=== PATIENT | female | born 1960 | race Caucasian/White ===

== ENCOUNTER → 2017-11-23 10:28 | Outpatient (CLI) | payer OTHER, SELFPAY ==
--- NOTE | 2017-11-23 10:30 | HPBI_ITS ---
MAMMOGRAPHY - BILATERAL SCREENING REASON FOR EXAM: Female, 57 years old. Routine annual screening examination. PERTINENT HISTORY: Personal history of breast cancer. Prior left lumpectomy with radiation and chemotherapy. TECHNIQUE: Digital bilateral breast winifred (3D mammographic acquisition) in the CC and MLO projections. 2-D mediolateral oblique (MLO) and craniocaudad (CC) views of both breasts were obtained. CAD: Full Field Digital Mammography with Computer Added Detection was performed. COMPARISON: Comparison is made with prior study dated November 19, 2016 and November 19, 2015. FINDINGS: Breast Composition: The breasts are heterogeneously dense, which may obscure small masses. Stable deformity of the left breast secondary to prior lumpectomy. A tissue clip marker is once again seen and in the deep upper lateral portion of the left breast. Linear calcifications are once again seen in the axillary region of the left breast. No new mass lesion or cluster microcalcification is seen. No other significant abnormalities are identified. There has been no significant change since the prior study. HPBI/SCREENING MAMM (CAD), BILAT IMPRESSION: Stable bilateral screening mammogram. Yearly follow-up mammogram recommended. (A) ASSESSMENT CATEGORY: BIRADS Category 2: Benign. A letter regarding these results will be sent to the patient by the facility within 30 days. Approximately 10% of breast cancers are not detected by mammography. A normal mammogram should not delay biopsy of a clinically suspicious abnormality. [id number] Electronically Signed: Shoaib Kuhn MD at 12:41 EDT Tel [phone], Service support ,
--- NOTE | 2017-11-23 10:32 | HPBD_ITS ---
STUDY: DUAL ENERGY X-RAY ABSORPTIOMETRY / DXA REASON FOR EXAM: Female, 57 years old. The patient is postmenopausal. History of breast cancer. Loss of height. TECHNIQUE: Bone Mineral Density (BMD) measurements of lumbar spine and bilateral hips were obtained. COMPARISON: Comparison is made with prior study dated November 19, 2015. FINDINGS: Lumbar Spine (L1-L4): g/cm2 (0.924) / T-score (-2.3) / Z-score (-1.2) Findings are suggestive of osteopenia with a moderate fracture risk. Left Femur Total: g/cm2 (0.870) / T-score (-1.1) / Z-score (-0.2) Left Femoral Neck: g/cm2 (0.804) / T-score (-1.7) / Z-score (-0.5) Right Femur Total: g/cm2 (0.896) / T-score (-0.9) / Z-score (0.0) Right Femoral Neck: g/cm2 (0.824) / T-score (-1.5) / Z-score (-0.4) The T-Scores on the most recent prior examination were: Lumbar Spine (L1-L4): There has been worsening of bone density since the previous examination. Left Femur Total: which represents a worsening of 4.3%. Right Femur Total: which represents an improvement of 0.2%. HPBD/Dexa Bone Density Study (HP) IMPRESSION: The patient is considered osteopenic as outlined below according to World Eloy Organization (WHO) criteria with a moderate fracture risk. There has been worsening of bone density since the previous examination. Reference Information: The T-score is the number of standard deviations above or below the standard which is normal for young adults at their peak bone mineral density. The World Health Organization (WHO) interprets the T-scores as follows: Above -1 Normal bone density Between -1 and -2.5 Osteopenia Equal to / or below -2.5 Osteoporosis As a practical clinical guideline, osteopenia may be graded as follows: Mild -1 through -1.5 Moderate -1.6 through -2.0 Severe -2.1 through -2.4 The Z-score is the number of standard deviations above or below age-matched controls. A Z-score of less than -1.5 would be considered abnormal. References: 1. NIH Osteoporosis and Related Bone Diseases http://www.osteo.org 2. International Society for Clinical Densitometry http://www.iscd.org 3. National Osteoporosis Foundation http://www.nof.org Electronically Signed: Shoaib Kuhn MD at 12:51 EDT Tel [phone], Service support ,
== END ==
PROVIDERS: Visit Provider Nurse Practitioner Family
DX: Z12.31 Encounter for screening mammogram for malignant neoplasm of breast (principal); Z13.820 Encounter for screening for osteoporosis; Z78.0 Asymptomatic menopausal state
CPT/HCPCS: 77063; 77067; 77080

== ENCOUNTER → 2017-12-24 16:26 | Outpatient (CLI) | payer OTHER, SELFPAY ==
--- NOTE | 2017-12-24 | COLBX_PTH ---
PATIENT: [facility]A [id number] AGE/SX: 65/F ROOM: RE12/24/[address]: Dr. Kirk Jaimes MD : 1960 BED: DIS: SPEC #: [id number] RECD: 12/24/17 15:23 STATUS: RADHA BECKIE #: [id number] HERNAN: 12/24/17 00:[address]: Kirk Jaimes DEPT: SURGICAL PATHOLOGY RECD BY: Mj Hudson ENTERED: 12/27/17 10:54 SP TYPE: COLON BX OTHR DR: Dr. Rodri Riddle MD [facility] Tissues: A - Ascending colon B - COLON BIOPSY C - Ileum, NOS Procedures: Surgery Specimen Level IV HEADER OPERATION: Colonoscopy with biopsies and polypectomy PRE-OP DIAGNOSIS: Diarrhea TISSUE SUBMITTED: A ? Proximal ascending polyps, rule out adenoma, B ? Right and left colon biopsies, rule out microscopic colitis, C ? Terminal ileum biopsies, rule out Crohn?s MICROSCOPIC DIAGNOSIS A. Proximal ascending colon polyp, biopsy: Tubular adenoma. B. Right and left colon, biopsy: No significant pathologic change. See comment. C. Terminal ileum, biopsy: No pathologic diagnosis. AM:wagner 12/28/17 COMMENT B. Eosinophils are mildly increased in the lamina propria. The significance of this is unclear. Clinical correlation is suggested. C. There is no evidence of Crohn?s enteritis. Clinical correlation is suggested. MICROSCOPIC DESCRIPTION Slides are reviewed. GROSS DESCRIPTION A - Received in fixative is one container labeled with the patient's name and designated proximal ascending colon polyps. The specimen consists of one irregular fragment of light orellana soft tissue that measures 0.4 x 0.3 x 0.1 cm. The specimen is totally submitted in one cassette. B - Received in fixative is one container labeled with the patient's name and designated right and left colon. The specimen consists of multiple irregular fragments of light orellana soft tissue that in aggregate measure 1 x 0.6 x 0.1 cm. The specimen is totally submitted in one cassette. C - Received in fixative is one container labeled with the patient's name and designated terminal ileum. The specimen consists of two irregular fragments of light orellana soft tissue that in aggregate measure 0.5 x 0.2 x 0.1 cm. The specimen is totally submitted in one cassette. / AM:wagner 12/27/17 TC:5 CPT: 51748 x3
== END ==
PROVIDERS: Family Provider Family Medicine; PCP Family Medicine; Visit Provider Internal Medicine Gastroenterology
DX: R19.7 Diarrhea, unspecified (principal)
CPT/HCPCS: 88305

== ENCOUNTER → 2018-02-14 08:17 | Outpatient (CLI) | payer OTHER, SELFPAY ==
--- NOTE | 2018-02-14 08:17 | DT_ITS ---
This patient was seen during an EMR downtime February 07, 2018 - February 14, 2018. This patient may have a combination of paper and electronic documentation or all paper documentation. All documentation is viewable within the e-chart portion of [facility] for each patient visit.
[2018-02-14 10:43] LABS: AST(SGOT) 13 U/L (15-37); Alanine Aminotransfer ALT/SGPT 17 U/L (13-56); Albumin, Serum 3.6 g/dL (3.2-5.0); Alkaline Phosphatase 98 U/L (45-117); Bilirubin, Direct 0.12 mg/dL (0.00-0.30); Cholesterol 195 mg/dL (200); Globulin 3.8 g/dL (2.2-4.2); High Density Lipoprotein 43 mg/dL; Protein, Total 7.4 g/dL (6.4-8.2); Triglycerides 221 mg/dL; Very Low Density Lipoprotein 44 mg/dL (5-40)
== END ==
PROVIDERS: Family Provider Family Medicine; PCP Family Medicine; Visit Provider Family Medicine
DX: E78.00 Pure hypercholesterolemia, unspecified (principal)
CPT/HCPCS: 36415; 80061; 80076

== ENCOUNTER → 2018-06-30 15:57 | Outpatient (CLI) | payer OTHER, SELFPAY | PROVIDERS: PCP Family Medicine; Visit Provider Internal Medicine Medical Oncology | DX: R19.7 Diarrhea, unspecified (principal) | CPT/HCPCS: 87177; 87209 ==

== ENCOUNTER → 2018-07-05 13:07 | Outpatient (CLI) | payer OTHER, SELFPAY ==
--- NOTE | 2018-07-05 13:10 | CT_ITS ---
STUDY: CT ABDOMEN AND PELVIS WITH CONTRAST REASON FOR EXAM: Female, 58 years old. Nausea/vomiting/diarrhea RADIATION DOSAGE (If Supplied By Facility): CTDIvol = ( 12.00 ) mGy, DLP = ( 767.91 ) mGycm TECHNIQUE: Transaxial images were obtained from the dome of the diaphragm to the symphysis pubis without oral contrast. 100ML ml of Isovue 300 contrast was administered. Sagittal and coronal images were reconstructed. Individualized dose optimization techniques were used for this CT. COMPARISON: None. FINDINGS: The visualized lung bases are unremarkable. The visualized portions of the heart are within normal limits. Liver is unremarkable aside from a 2 cm cyst in the right lobe. Normal gallbladder and extrahepatic biliary system. Normal spleen. Normal pancreas. Normal bilateral adrenal glands. Normal right kidney. Normal left kidney. Normal visualized stomach. Normal small intestine. Normal colon. The appendix is visualized and appears normal. Appendix best seen on coronal recon image 73. Normal abdominal aorta. Normal inferior vena cava. Normal retroperitoneum. Normal urinary bladder. Normal abdominal wall. There are diffuse degenerative changes of the visualized lumbar spine. CT/Abdomen/Pelvis WITH Contrast IMPRESSION: No suspicious solid organ abnormality No CT evidence of an acute inflammatory process, normal appendix visualized No free peritoneal fluid, air, or suspicious adenopathy Electronically Signed: Virgilio Rodriguez MD at 15:18 EDT , Service support ,
== END ==
PROVIDERS: Family Provider Family Medicine; PCP Family Medicine; Referring Provider Internal Medicine Medical Oncology; Visit Provider Internal Medicine Medical Oncology
DX: R10.9 Unspecified abdominal pain (principal); R19.7 Diarrhea, unspecified
CPT/HCPCS: 74177; Q9967

== ENCOUNTER → 2018-11-24 07:00 | Outpatient (CLI) | payer OTHER, SELFPAY ==
--- NOTE | 2018-11-24 07:07 | BI_ITS ---
MAMMOGRAPHY - BILATERAL SCREENING 3-D ALISA SYNTHESIS REASON FOR EXAM: Female, 58 years old. Bilateral Screening 3-D tomosynthesis PERTINENT HISTORY: Personal history of left breast cancer status post lumpectomy, radiation and chemotherapy. TECHNIQUE: 2-D mammograms and 3-D Alisa synthesis of the breast (s) were performed. CAD was performed. COMPARISON: November 19, 2016, November 19, 2015 FINDINGS: The breast composition is almost entirely fat. Post radiation and chemotherapy changes in the left breast are stable with a surgical suture present. There is deformity of the left breast unchanged. Scattered benign calcifications are seen. No dense spiculated masses or suspicious microcalcifications are identified. No architectural distortion is identified. There is no skin thickening or retraction. There has been no significant change since the prior study. BI/SCREENING MAMM (CAD), BILAT IMPRESSION: No mammographic signs of malignancy. Routine yearly mammograms recommended. ASSESSMENT CATEGORY: BIRADS Category 2: Benign. A letter regarding these results will be sent to the patient by the facility within 30 days. FOLLOW UP RECOMMENDATION: Yearly follow up mammogram recommended. (A) Approximately 10% of breast cancers are not detected by mammography. A normal mammogram should not delay biopsy of a clinically suspicious abnormality. Electronically Signed: Won Vizcarra MD at 16:33 EDT , Service support ,
--- NOTE | 2018-11-24 07:07 | BI_ITS ---
MAMMOGRAPHY - BILATERAL SCREENING 3-D ALISA SYNTHESIS REASON FOR EXAM: Female, 58 years old. Bilateral Screening 3-D tomosynthesis PERTINENT HISTORY: Personal history of left breast cancer status post lumpectomy, radiation and chemotherapy. TECHNIQUE: 2-D mammograms and 3-D Alisa synthesis of the breast (s) were performed. CAD was performed. COMPARISON: November 19, 2016, November 19, 2015 FINDINGS: The breast composition is almost entirely fat. Post radiation and chemotherapy changes in the left breast are stable with a surgical suture present. There is deformity of the left breast unchanged. Scattered benign calcifications are seen. No dense spiculated masses or suspicious microcalcifications are identified. No architectural distortion is identified. There is no skin thickening or retraction. There has been no significant change since the prior study. BI/Bilat Brst Screen Alisa Add-On IMPRESSION: No mammographic signs of malignancy. Routine yearly mammograms recommended. ASSESSMENT CATEGORY: BIRADS Category 2: Benign. A letter regarding these results will be sent to the patient by the facility within 30 days. FOLLOW UP RECOMMENDATION: Yearly follow up mammogram recommended. (A) Approximately 10% of breast cancers are not detected by mammography. A normal mammogram should not delay biopsy of a clinically suspicious abnormality. Electronically Signed: Won Vizcarra MD at 16:33 EDT , Service support ,
== END ==
PROVIDERS: Family Provider Family Medicine; PCP Family Medicine; Referring Provider Nurse Practitioner Family; Visit Provider Nurse Practitioner Family
DX: Z12.31 Encounter for screening mammogram for malignant neoplasm of breast (principal); Z85.3 Personal history of malignant neoplasm of breast
CPT/HCPCS: 77063; 77067

== ENCOUNTER → 2019-01-24 08:29 | Outpatient (CLI) | payer OTHER, SELFPAY ==
[2018-07-11 15:18] VITALS: BMI 29.2
[2019-01-24 10:45] LABS: AST(SGOT) 20 U/L (15-37); Alanine Aminotransfer ALT/SGPT 24 U/L (13-56); Albumin, Serum 3.8 g/dL (3.2-5.0); Alkaline Phosphatase 106 U/L (45-117); Bilirubin, Direct 0.13 mg/dL (0.00-0.30); Cholesterol 195 mg/dL (200); Globulin 3.8 g/dL (2.2-4.2); High Density Lipoprotein 48 mg/dL; Protein, Total 7.6 g/dL (6.4-8.2); Triglycerides 167 mg/dL; Very Low Density Lipoprotein 33 mg/dL (5-40)
== END ==
PROVIDERS: Family Provider Family Medicine; PCP Family Medicine
DX: E78.00 Pure hypercholesterolemia, unspecified (principal)
CPT/HCPCS: 36415; 80061; 80076

== ENCOUNTER → 2019-10-06 10:02 | Outpatient (CLI) | payer OTHER, SELFPAY ==
[2019-07-11 13:03] VITALS: BMI 30.1
[2019-10-06 11:49] LABS: AST(SGOT) 14 U/L (15-37); Alanine Aminotransfer ALT/SGPT 25 U/L (13-56); Albumin, Serum 3.8 g/dL (3.2-5.0); Alkaline Phosphatase 106 U/L (45-117); Bilirubin, Direct 0.12 mg/dL (0.00-0.30); Cholesterol 212 mg/dL (200); Globulin 3.9 g/dL (2.2-4.2); High Density Lipoprotein 50 mg/dL; Protein, Total 7.7 g/dL (6.4-8.2); Triglycerides 208 mg/dL; Very Low Density Lipoprotein 42 mg/dL (5-40)
== END ==
PROVIDERS: PCP Family Medicine; Visit Provider Family Medicine
DX: E78.00 Pure hypercholesterolemia, unspecified (principal)
CPT/HCPCS: 36415; 80061; 80076

== ENCOUNTER → 2019-11-20 12:08 | Outpatient (CLI) | payer OTHER, SELFPAY ==
[2019-07-11 13:03] VITALS: BMI 30.1
--- NOTE | 2019-11-20 12:10 | CT_ITS ---
STUDY: CT SCAN OF LOWER EXTREMITY LEFT REASON FOR EXAM: Female, 59 years old. LEFT KNEE PAIN, ZAHRA RADIATION DOSAGE (If Supplied By Facility): CTDIvol = ( 31.72 ) mGy, DLP = ( 2286.66 ) mGycm. Individualized dose optimization techniques were used for this CT.? TECHNIQUE: Multiple axial tomographic images of the left hip joint, knee joint and ankle joint were obtained. COMPARISON: None. FINDINGS: There is a marked degree of joint space narrowing with degenerative spur formation involving the medial compartment of the knee joint. No significant hip joint narrowing is seen. Plantar spur. The ankle mortise is intact. CT/Extremity Lower without Contra IMPRESSION: Marked degree of joint space narrowing with degenerative spur formation involving the medial compartment of the knee joint. Electronically Signed: Shoaib Kuhn, at 14:41 EDT , Service support ,
== END ==
PROVIDERS: PCP Family Medicine; Referring Provider Specialist; Visit Provider Specialist
DX: M21.162 Varus deformity, not elsewhere classified, left knee (principal)
CPT/HCPCS: 73700

== ENCOUNTER → 2019-11-20 | Outpatient (CLI) | payer OTHER, SELFPAY ==
[2019-07-11 13:03] VITALS: BMI 30.1
[2019-11-20 11:46] VITALS: BP 148/82; PULSE 74; RESP 16; TEMP 36.8; O2SAT 96; BMI 30.6
[2019-11-20 12:28] LABS: Absolute Lymphocyte Count 1.27 X10^3/uL (0.83-4.51); Basophil# 0.05 X10^3/uL; Hematocrit 44.7 % (37-47); Hemoglobin 14.6 g/dL (12.0-15.0); Lymphocyte # 1.27 X10^3/ul (4.0); Mean Corp Hgb Conc 32.7 g/dL (32-36); Mean Corpuscular Hgb 27.8 pg (27.0-32.0); Mean Corpuscular Volume 85.1 fL (81-99); Mean Platelet Vol. 8.7 fl (6.2-12.0); Monocyte# 0.57 X10^3/uL; Monocyte% 11.2 % (0-10); NRBC Flagged by Analyzer 0 % (0-5); Neutrophil # 3.03 X10^3/uL (2.7-7.7); Neutrophil % 59.6 % (47-70); Platelet Count 277 K/mm3 (150-450); RBC Distribution Width CV 13.2 % (11.6-14.6); RBC Distribution Width SD 41.2 fl (35.1-43.9); Red Blood Count 5.25 M/mm3 (4.2-5.4); White Blood Count 5.1 K/mm3 (4.4-11.0)
--- NOTE | 2019-11-20 12:38 | HP.PCM_ITS ---
History and Physical History and Physical [facility] Patient Name: Ingrid Choe : 1960 From: SOHAIL CANTU PA-C DATE OF SURGERY: 12/06/2019 SCHEDULED PROCEDURE: left knee unicompartmental replacement versus total knee arthroplasty HISTORY OF PRESENT ILLNESS: Preoperative history and physical exam was performed on November 20, 2019. This is a 59-year-old female who is been having ongoing pain since March 2019 with her left knee. Patient states her pain has been intermittent, Musa, aching, sharp, sore. She has increased pain going up and down stairs, walking, and standing. She does have sensation of instability with the left knee. Pain is over the medial joint line. Pain does occasionally wake her at night. She has difficult time with activities of daily living including getting dressed, housework, and shopping. Patient has tripped/stumbled secondary to the knee pain. Patient has been through conservative measures consisting of rest and elevation with minimal relief. She has had a previous corticosteroid injection which gave her temporary relief but pain increased with physical therapy. Patient is also underwent viscose supplementation injections with minimal to no relief. Patient denies previous surgery on her left knee. She has tried brace over the past 2 months with no relief in symptoms. Patient has also had MRI of the left knee. Patient currently denies any chest pain, shortness of breath, fevers chills, recent infections. She has medical clearance from her primary care physician Dr. Riddle. After failure of conservative measures and discussion with Dr. Tyrone Brower, the patient does wish to proceed with a right unicompartmental knee replacement versus total knee arthroplasty. REVIEW OF SYSTEMS: ROS: Const: Denies anorexia, anxiety, change in appetite, fever, hard of hearing, vision problems and weight change. CV: Denies chest pain, heart murmur, irregular heartbeat and peripheral vascular disease. Resp: Denies asthma, cough, pneumonia, sleep apnea, SOB, tuberculosis and wheezing. GI: Denies constipation, diarrhea, difficulty swallowing, heartburn, nausea, bloody stools and vomiting. : Urinary: denies incontinence. Musculo: Denies leg swelling, limp, trouble walking and weakness. Skin: Denies Raynaud's, history of shingles and tattoo. Neuro: Denies ambulatory dysfunction, dizziness, numbness/tingling and tremor. Psych: Denies anxiety, depression, insomnia, mental illness and stress. Erin/Lymph: Denies anemia, bleeding/bruising tendency and past transfusion. Reviewed, no changes. PAST MEDICAL HISTORY: Advance Care Plan: No Advance Directives Effective Date: 04/21/2019 PMH: Medical Problems: Cancer - (2005) breast Hypercholesterolemia Accidents: Fracture - (2011) RIBS & 2014 Surgical Hx: Hysterectomy - (11/2005) Lumpectomy - (05/2006) LT CTR - (07/22/2007) [facility] RT CTR RT Thumb - (01/31/2015) TRIGGER FINGER Anesthesia Complications: Nausea, Vomiting Assistive Devices: Glasses - reading, Cpap Reviewed, no changes. SOCIAL HISTORY: SH: Marital: .Occupation: [employer].Work Status: Currently Working - FT_ [employer], PT- [employer].Hand Dominance: Right-Handed. Personal Habits: Cigarette Use: Never.Alcohol: Denies use.Drug Use: Denies Use.Enjoy Exercising: Exercises 1-3 X/Week. Reviewed, no changes. VITALS: Ht: 63 Wt: 166lb Wt k.298 BMI: 29.4 BP: 152/92 Pulse: 80 Resp: 16 T: 96.7 T: 35.9C ALLERGIES: No Known Drug Allergy MEDICATIONS: Coq-10 1 cap PO daily, Multivitamin Adult 1 tab by mouth twice daily, TGT Calcium Dietary Supplement 600-400 MG-Unit 1 tab by mouth daily, Lexapro 1po qday, Lipitor 10 mg 1po qday PRE-OP EXAM: General appearance:NORMAL Other: Eyes: Conjunctivae and lids: NORMAL Pupils: ERR Ears, Nose, Mouth, and Throat: NORMAL Other: Inspection of lips, teeth and gums: NORMAL Other: Neck: Examination of neck: no masses noted. Respiratory: Assessment of respiratory effort: NORMAL Other: Auscultation of lungs: clear to auscultation no wheezes, rhonchi or rales. Cardiovascular: Auscultation of heart: regular rate and rhythm, no murmurs, gallops or rubs. Exam of carotid arteries: NORMAL Other: Gastrointestinal: Exam of abdomen: soft, nontender, nondistended bowel sounds present. PHYSICAL EXAMINATION: Patient walks with an antalgic gait. Left knee is cool to touch without eryt erin or signs of infection. There is positive effusion to the left knee. Patient has significant tenderness to palpation along the medial joint line left knee. Correctable varus alignment. Range of motion: 0 of extension to 120 flexion with crepitus. Sensation intact to light touch. IMAGING STUDIES: Previous x-rays of the left knee reveal varus alignment with medial joint space narrowing, subchondral sclerosis, and osteophyte formation consistent with stage III medial compartment osteoarthritis. Previous MRI of the left knee shows medial compartment arthrosis with complete cartilage loss of the medial compartment with subchondral edema and collapse of the subchondral bone on the medial distal condyle consistent with severe medial compartment arthritis. IMPRESSION: 1. Severe medial compartment osteoarthritis 2. Hypercholesterolemia 3. History of breast cancer 2005 PLAN: Dr. Tyrone Brower did discuss and review with the patient all treatment options including surgical versus nonsurgical options. Patient does wish to proceed with the above-stated procedure. Potential risks, benefits, and complications of the procedure were discussed in detail including but not limited to , infection, nerve and blood vessel damage, persistent pain, numbness, tingling, paresthesias, blood clot, pulmonary embolism, and requirement for possible further surgery. The patient expressed full understanding and has no further questions for the doctor. Patient does agree to proceed with the above-stated procedure and has signed the surgery consent form. This dictation was created using voice recognition software. Phonetic and/or grammatical errors may exist. ___ I have re-examined the patient. There are no clinical changes since date of exam. ___ See progress notes for changes. ___ Dictated on admission Date: Time: Signature:
[2019-11-20 13:18] LABS: Anion Gap 8 (5-15); BUN 16 mg/dL (7-18); BUN/Creat Ratio 18.1 RATIO (10-20); Calcium,Total 9.1 mg/dL (8.5-10.1); Chloride 108 mmol/L (98-107); Creatinine, Serum 0.88 mg/dL (0.55-1.02); EST Glomerular Filtration Rate 69 mL/min (>60); Est Glom Filt Rate - Afr Amer 84 mL/min (>60); Estimated Creatinine Clearance 53.77 ml/min; Glucose 100 mg/dL (74-106); Potassium 3.9 mmol/L (3.5-5.1); Sodium Level 140 mmol/L (136-145)
== END | disposition home or self-care (01) ==
LOC: PAT 12-22 10:59
PROVIDERS: PCP Family Medicine; Referring Provider Specialist; Visit Provider Specialist
DX: Z01.812 Encounter for preprocedural laboratory examination (principal)
CPT/HCPCS: 80048; 85025; 87077; 87081; 93005

== ENCOUNTER → 2019-11-28 08:23 | Outpatient (CLI) | payer OTHER, SELFPAY ==
[2019-07-11 13:03] VITALS: BMI 30.1
[2019-11-20 11:46] VITALS: BMI 30.6
--- NOTE | 2019-11-28 08:24 | BI_ITS ---
MAMMOGRAPHY - BILATERAL SCREENING REASON FOR EXAM: Female, 59 years old. Routine annual screening examination. PERTINENT HISTORY: Personal history of breast cancer. Prior left lumpectomy with radiation treatment. TECHNIQUE: Digital bilateral breast alisa (3D mammographic acquisition) in the CC and MLO projections. 2-D mediolateral oblique (MLO) and craniocaudad (CC) views of both breasts were obtained. CAD: Full Field Digital Mammography with Computer Added Detection was performed. COMPARISON: Comparison is made with prior examination dated November 24, 2018 and November 23, 2017. FINDINGS: Breast Composition: The breasts are heterogeneously dense, which may obscure small masses. There are no dominant masses or suspicious calcifications. Stable deformity of the left breast secondary to postsurgical changes following left lumpectomy. Stable linear calcification in the axillary region of the left breast. No other significant abnormalities are identified. There has been no significant change since the prior study. BI/SCREEN MAMM (CAD) W/ALISA BILAT IMPRESSION: Stable bilateral screening mammogram. Yearly follow-up mammogram recommended. (A) ASSESSMENT CATEGORY: BIRADS Category 2: Benign. A letter regarding these results will be sent to the patient by the facility within 30 days. Approximately 10% of breast cancers are not detected by mammography. A normal mammogram should not delay biopsy of a clinically suspicious abnormality. [id number] Electronically Signed: Shoaib Kuhn, at 9:39 EDT , Service support ,
== END ==
PROVIDERS: Family Provider Family Medicine; PCP Family Medicine; Referring Provider Internal Medicine Medical Oncology; Visit Provider Internal Medicine Medical Oncology
DX: Z12.31 Encounter for screening mammogram for malignant neoplasm of breast (principal); Z85.3 Personal history of malignant neoplasm of breast
CPT/HCPCS: 77063; 77067

== ENCOUNTER → 2020-03-29 12:32 | Outpatient (CLI) | payer OTHER, SELFPAY ==
[2019-11-20 11:46] VITALS: BMI 30.6
[2020-03-29 14:37] LABS: AST(SGOT) 21 U/L (15-37); Alanine Aminotransfer ALT/SGPT 25 U/L (13-56); Albumin, Serum 3.9 g/dL (3.2-5.0); Alkaline Phosphatase 103 U/L (45-117); Cholesterol 230 mg/dL (200); Globulin 3.8 g/dL (2.2-4.2); High Density Lipoprotein 46 mg/dL; Protein, Total 7.7 g/dL (6.4-8.2); Triglycerides 178 mg/dL; Very Low Density Lipoprotein 36 mg/dL (5-40)
== END ==
PROVIDERS: PCP Family Medicine; Referring Provider Family Medicine; Visit Provider Family Medicine
DX: E78.00 Pure hypercholesterolemia, unspecified (principal)
CPT/HCPCS: 36415; 80061; 80076

== ENCOUNTER → 2020-07-24 12:16 | Outpatient (CLI) | payer OTHER, SELFPAY ==
[2020-07-24 13:41] LABS: Absolute Lymphocyte Count 1.44 X10^3/uL (0.83-4.51); Absolute Neutrophil Count 3.3 X10^3/uL (2.0-7.7); Basophil# 0.04 X10^3/uL; Basophil% 0.7 % (0-1); Eosinophil# 0.09 X10^3/uL; Eosinophils% 1.7 % (0-5); Hematocrit 45.9 % (37-47); Hemoglobin 14.4 g/dL (12.0-15.0); Lymphocyte # 1.44 X10^3/ul (4.0); Lymphocyte % 26.5 % (19-41); Mean Corp Hgb Conc 31.4 g/dL (32-36); Mean Platelet Vol. 9.1 fl (6.2-12.0); NRBC Flagged by Analyzer 0 % (0-5); Neutrophil # 3.25 X10^3/uL (2.7-7.7); Neutrophil % 59.9 % (47-70); Platelet Count 291 K/mm3 (150-450); RBC Distribution Width CV 13.7 % (11.6-14.6); RBC Distribution Width SD 43.1 fl (35.1-43.9); Red Blood Count 5.34 M/mm3 (4.2-5.4); White Blood Count 5.4 K/mm3 (4.4-11.0)
[2020-07-24 13:55] LABS: Erythrocyte Sedimentation Rate 12 mm/hr (0-30)
[2020-07-24 14:04] LABS: ALB/GLOB Ratio 1.1 RATIO (0.9-2.4); AST(SGOT) 17 U/L (15-37); Alanine Aminotransfer ALT/SGPT 25 U/L (13-56); Albumin, Serum 4.2 g/dL (3.2-5.0); Alkaline Phosphatase 112 U/L (45-117); Anion Gap 7 (5-15); BUN 13 mg/dL (7-18); BUN/Creat Ratio 19.3 RATIO (10-20); Calcium,Total 9.1 mg/dL (8.5-10.1); Chloride 104 mmol/L (98-107); Cholesterol 233 mg/dL (200); Creatinine, Serum 0.67 mg/dL (0.55-1.02); EST Glomerular Filtration Rate 95 mL/min (>60); Est Glom Filt Rate - Afr Amer 114 mL/min (>60); Globulin 3.9 g/dL (2.2-4.2); Glucose 74 mg/dL (74-106); High Density Lipoprotein 52 mg/dL; Potassium 3.6 mmol/L (3.5-5.1); Protein, Total 8.1 g/dL (6.4-8.2); Rheumatoid Factor < 10.0 IU/mL (<15); Sodium Level 138 mmol/L (136-145); Triglycerides 199 mg/dL; Very Low Density Lipoprotein 40 mg/dL (5-40)
[2020-07-25 14:49] LABS: ANTINUCLEAR ANTIBODIES DIRECT Negative (Negative)
== END ==
PROVIDERS: PCP Family Medicine; Referring Provider Family Medicine; Visit Provider Family Medicine
DX: Z00.00 Encounter for general adult medical examination without abnormal findings (principal); E78.00 Pure hypercholesterolemia, unspecified
CPT/HCPCS: 36415; 80053; 80061; 85025; 85652; 86038; 86431

== ENCOUNTER → 2020-09-25 10:05 | Outpatient (CLI) | payer OTHER, SELFPAY ==
--- NOTE | 2020-09-25 10:09 | BD_ITS ---
STUDY: DUAL ENERGY X-RAY ABSORPTIOMETRY / DXA REASON FOR EXAM: Female, 60 years old. SYSTEM DESIGNER -- HX OF TAKING AROMATASE INHIBITOR -- TAKES CALCIUM AND MULTIVITAMIN -- HX OF TAKING PROLIA -- DOES MODERATE AMOUNT OF EXERCISE -- FAMILY HX OF OSTEO- MOTHER -- HX OF ANKLE FX AND RIBS FXS -- SB OF 1 INCH TECHNIQUE: Bone Mineral Density (BMD) measurements of lumbar spine and bilateral hips were obtained. COMPARISON: Comparison is made with prior examination dated 11/19/2015. FINDINGS: Lumbar Spine (L1-L4): g/cm2 (0.980) / T-score (-1.8) / Z-score (-0.5) Findings are suggestive of osteopenia with a moderate fracture risk. Left Femur Total: g/cm2 (0.839) / T-score (-1.3) / Z-score (-0.3) Left Femoral Neck: g/cm2 (0.794) / T-score (-1.8) / Z-score (-0.5) Right Femur Total: g/cm2 (0.841) / T-score (-1.3) / Z-score (-0.3) Right Femoral Neck: g/cm2 (0.779) / T-score (-1.9) / Z-score (-0.6) The T-Scores on the most recent prior examination were: Lumbar Spine (L1-L4): There has been improvement of bone density since the previous examination. Left Femur Total: which represents a worsening of 3.6%. Right Femur Total: which represents a worsening of 6.1%. BD/Dexa Bone Density Study IMPRESSION: The patient is considered osteopenic as outlined below according to World Eloy Organization (WHO) criteria with a moderate fracture risk. There has been worsening of bone density since the previous examination. Reference Information: The T-score is the number of standard deviations above or below the standard which is normal for young adults at their peak bone mineral density. The World Health Organization (WHO) interprets the T-scores as follows: Above -1 Normal bone density Between -1 and -2.5 Osteopenia Equal to / or below -2.5 Osteoporosis As a practical clinical guideline, osteopenia may be graded as follows: Mild -1 through -1.5 Moderate -1.6 through -2.0 Severe -2.1 through -2.4 The Z-score is the number of standard deviations above or below age-matched controls. A Z-score of less than -1.5 would be considered abnormal. References: 1. NIH Osteoporosis and Related Bone Diseases www osteo.org 2. International Society for Clinical Densitometry www iscd.org 3. National Osteoporosis Foundation www nof.org Electronically Signed: Shoaib Kuhn MD at 15:25 EST , Service support ,
== END ==
PROVIDERS: PCP Family Medicine
DX: Z13.820 Encounter for screening for osteoporosis (principal)
CPT/HCPCS: 77080

== ENCOUNTER → 2021-01-07 08:39 | Outpatient (CLI) | payer OTHER, SELFPAY ==
--- NOTE | 2021-01-07 08:41 | BI_ITS ---
MAMMOGRAPHY - BILATERAL SCREENING REASON FOR EXAM: Female, 60 years old. Routine annual screening examination. PERTINENT HISTORY: Personal history of breast cancer. Prior left lumpectomy with radiation and chemotherapy. TECHNIQUE: Digital bilateral breast alisa (3D mammographic acquisition) in the CC and MLO projections. 2-D mediolateral oblique (MLO) and craniocaudad (CC) views of both breasts were obtained. CAD: Full Field Digital Mammography with Computer Added Detection was performed. COMPARISON: Comparison is made with prior study dated 11/28/2019 and 11/24/2018. FINDINGS: Breast Composition: The breasts are heterogeneously dense, which may obscure small masses. There are no dominant masses or suspicious calcifications. Once again, the patient is status post lumpectomy in the upper deep lateral aspect of the left breast with resultant postoperative scarring and deformity. Dense linear calcification in the axillary region of the left breast. There has been no change. No other significant abnormalities are identified. There has been no significant change since the prior study. BI/SCRN MAMM (CAD)W/ALISA BILAT IMPRESSION: Stable bilateral screening mammogram. Yearly follow-up mammogram recommended. (A) ASSESSMENT CATEGORY: BIRADS Category 2: Benign. A letter regarding these results will be sent to the patient by the facility within 30 days. Approximately 10% of breast cancers are not detected by mammography. A normal mammogram should not delay biopsy of a clinically suspicious abnormality. [id number] Electronically Signed: Shoaib Kuhn MD at 9:14 EDT , Service support ,
== END ==
PROVIDERS: PCP Family Medicine; Referring Provider Internal Medicine Medical Oncology; Visit Provider Internal Medicine Medical Oncology
DX: Z12.31 Encounter for screening mammogram for malignant neoplasm of breast (principal); Z85.3 Personal history of malignant neoplasm of breast
CPT/HCPCS: 77063; 77067

== ENCOUNTER → 2021-02-24 11:13 | Outpatient (CLI) | payer OTHER, SELFPAY ==
[2021-02-24 12:06] LABS: Absolute Lymphocyte Count 0.92 X10^3/uL (0.83-4.51); Absolute Neutrophil Count 4.7 X10^3/uL (2.0-7.7); Basophil# 0.04 X10^3/uL; Basophil% 0.6 % (0-1); Eosinophil# 0.12 X10^3/uL; Eosinophils% 1.9 % (0-5); Hematocrit 42.7 % (37-47); Hemoglobin 13.6 g/dL (12.0-15.0); Lymphocyte # 0.92 X10^3/ul (0.83-4.51); Lymphocyte % 14.2 % (19-41); Mean Corp Hgb Conc 31.9 g/dL (32-36); Mean Corpuscular Hgb 27.1 pg (27.0-32.0); Mean Corpuscular Volume 85.2 fL (81-99); Mean Platelet Vol. 9.1 fl (6.2-12.0); Monocyte# 0.68 X10^3/uL; Monocyte% 10.5 % (0-10); NRBC Flagged by Analyzer 0 % (0-5); Neutrophil # 4.71 X10^3/uL (2.7-7.7); Neutrophil % 72.6 % (47-70); Platelet Count 252 K/mm3 (150-450); RBC Distribution Width CV 13.7 % (11.6-14.6); RBC Distribution Width SD 42.9 fl (35.1-43.9); Red Blood Count 5.01 M/mm3 (4.2-5.4); White Blood Count 6.5 K/mm3 (4.4-11.0)
[2021-02-24 12:49] LABS: Vitamin D,25 Hydroxy 46.3 ng/mL
[2021-02-24 13:23] LABS: ALB/GLOB Ratio 1.1 RATIO (0.9-2.4); AST(SGOT) 16 U/L (15-37); Alanine Aminotransfer ALT/SGPT 24 U/L (13-56); Albumin, Serum 3.9 g/dL (3.2-5.0); Alkaline Phosphatase 103 U/L (45-117); Anion Gap 6 (5-15); BUN 14 mg/dL (7-18); BUN/Creat Ratio 18.2 RATIO (10-20); Calcium,Total 9.1 mg/dL (8.5-10.1); Chloride 104 mmol/L (98-107); Cholesterol 199 mg/dL (200); Creatinine, Serum 0.77 mg/dL (0.55-1.02); EST Glomerular Filtration Rate 81 mL/min (>60); Est Glom Filt Rate - Afr Amer 98 mL/min (>60); Globulin 3.6 g/dL (2.2-4.2); Glucose 85 mg/dL (74-106); High Density Lipoprotein 54 mg/dL; Potassium 4.4 mmol/L (3.5-5.1); Protein, Total 7.5 g/dL (6.4-8.2); Sodium Level 138 mmol/L (136-145); Triglycerides 231 mg/dL; Very Low Density Lipoprotein 46 mg/dL (5-40)
== END ==
PROVIDERS: PCP Family Medicine; Referring Provider Family Medicine; Visit Provider Family Medicine
DX: Z00.00 Encounter for general adult medical examination without abnormal findings (principal); E55.9 Vitamin D deficiency, unspecified; M06.4 Inflammatory polyarthropathy; E78.00 Pure hypercholesterolemia, unspecified
CPT/HCPCS: 36415; 80053; 80061; 82306; 85025

== ENCOUNTER → 2021-05-27 08:07 | Outpatient (REF) | payer SELFPAY | LOC: CVS 08:07 | PROVIDERS: PCP Family Medicine | DX: Z00.00 Encounter for general adult medical examination without abnormal findings (principal) ==

== ENCOUNTER 2021-10-02 09:08 | Outpatient (CLI) | payer OTHER, SELFPAY ==
[2021-10-02 10:14] LABS: AST(SGOT) 18 U/L (15-37); Alanine Aminotransfer ALT/SGPT 26 U/L (13-56); Albumin, Serum 3.9 g/dL (3.2-5.0); Alkaline Phosphatase 93 U/L (45-117); Bilirubin, Direct 0.12 mg/dL (0.00-0.30); Cholesterol 194 mg/dL (200); Globulin 3.7 g/dL (2.2-4.2); High Density Lipoprotein 51 mg/dL; Protein, Total 7.6 g/dL (6.4-8.2); Triglycerides 173 mg/dL; Very Low Density Lipoprotein 35 mg/dL (5-40)
== END 2021-10-02 23:59 | disposition short-term general hospital (02) ==
LOC: LAB 09:11
PROVIDERS: PCP Family Medicine; Referring Provider Family Medicine; Visit Provider Family Medicine
DX: E78.00 Pure hypercholesterolemia, unspecified (principal)
CPT/HCPCS: 36415; 80061; 80076

== ENCOUNTER → 2022-01-08 | Outpatient (CLI) | payer OTHER, SELFPAY ==
--- NOTE | 2022-01-08 07:18 | BI_ITS ---
MAMMOGRAPHY - BILATERAL SCREENING REASON FOR EXAM: Female, 61 years old. Routine annual screening examination. PERTINENT HISTORY: Personal history of breast cancer. Prior left lumpectomy with radiation and chemotherapy. TECHNIQUE: Digital bilateral breast alisa (3D mammographic acquisition) in the CC and MLO projections. 2-D mediolateral oblique (MLO) and craniocaudad (CC) views of both breasts were obtained. CAD: Full Field Digital Mammography with Computer Added Detection was performed. COMPARISON: Comparison is made with prior examination of 01/07/2021 and 11/28/2019. FINDINGS: Breast Composition: The breasts are heterogeneously dense, which may obscure small masses. There are no dominant masses or suspicious calcifications. With significant, the patient is status post lumpectomy in the upper deep lateral aspect of the left breast with resultant varus deformity and postoperative scarring. Dense suture calcifications are seen at the operative site. No other significant abnormalities are identified. There has been no significant change since the prior study. BI/SCRN MAMM (CAD)W/ALISA BILAT IMPRESSION: Stable bilateral screening mammogram. Yearly follow-up mammogram recommended. (A) ASSESSMENT CATEGORY: BIRADS Category 2: Benign. A letter regarding these results will be sent to the patient by the facility within 30 days. Approximately 10% of breast cancers are not detected by mammography. A normal mammogram should not delay biopsy of a clinically suspicious abnormality. [id number] Electronically Signed: Shoaib Kuhn MD at 8:19 EDT ,
== END | disposition home or self-care (01) ==
LOC: OPBI 07:17
PROVIDERS: PCP Family Medicine; Visit Provider Internal Medicine Medical Oncology
DX: Z12.31 Encounter for screening mammogram for malignant neoplasm of breast (principal); Z85.3 Personal history of malignant neoplasm of breast
CPT/HCPCS: 77063; 77067

== ENCOUNTER → 2022-06-30 | Outpatient (CLI) | payer OTHER, SELFPAY ==
--- NOTE | 2022-06-30 12:01 | EKG12_ITS ---
Test Reason : PRE-OP Blood Pressure : / mmHG Vent. Rate : 089 BPM Atrial Rate : 089 BPM P-R Int : 146 ms QRS Dur : 074 ms QT Int : 372 ms P-R-T Axes : 050 -22 041 degrees QTc Int : 452 ms Normal sinus rhythm Left ventricular hypertrophy Inferior infarct , age undetermined Poor R wave progression Abnormal ECG Confirmed by SAL PACE, PING ([id number]), film and video editor DENA BUSBY ([id number]) on 07/01/2022 10:48:29 AM Referred By: Tyrone Brower Confirmed By:PING HUANG MD
[2022-06-30 12:25] LABS: Hematocrit 42.3 % (37-47); Hemoglobin 14.2 g/dL (12.0-15.0); Mean Corp Hgb Conc 33.6 g/dL (32-36); Mean Corpuscular Hgb 28.2 pg (27.0-32.0); Mean Corpuscular Volume 83.9 fL (81-99); Mean Platelet Vol. 8.9 fl (6.2-12.0); Platelet Count 282 K/mm3 (150-450); RBC Distribution Width CV 13.4 % (11.6-14.6); RBC Distribution Width SD 41.2 fl (35.1-43.9); Red Blood Count 5.04 M/mm3 (4.2-5.4); White Blood Count 6.5 K/mm3 (4.4-11.0)
[2022-06-30 12:59] LABS: Anion Gap 5 (5-15); BUN 13 mg/dL (7-18); BUN/Creat Ratio 17.9 RATIO (10-20); Calcium,Total 9.3 mg/dL (8.5-10.1); Chloride 107 mmol/L (98-107); Creatinine, Serum 0.72 mg/dL (0.55-1.02); EST Glomerular Filtration Rate 86 mL/min (>60); Est Glom Filt Rate - Afr Amer 104 mL/min (>60); Glucose 145 mg/dL (74-106); Potassium 3.8 mmol/L (3.5-5.1); Sodium Level 138 mmol/L (136-145)
== END | disposition home or self-care (01) ==
LOC: PSN 12:00
PROVIDERS: PCP Family Medicine; Referring Provider Specialist; Visit Provider Specialist
DX: Z01.810 Encounter for preprocedural cardiovascular examination (principal)
CPT/HCPCS: 36415; 80048; 85027; 93005

== ENCOUNTER 2022-07-17 16:02 | Emergency (ER) | payer OTHER, SELFPAY ==
[2022-07-17 16:03] VITALS: BP 196/119; PULSE 115; RESP 18; TEMP 35.8; O2SAT 98; BMI 29.7
--- NOTE | 2022-07-17 17:21 | EKG12_ITS ---
Test Reason : HYPERTENSION Blood Pressure : / mmHG Vent. Rate : 084 BPM Atrial Rate : 084 BPM P-R Int : 144 ms QRS Dur : 084 ms QT Int : 380 ms P-R-T Axes : 056 008 050 degrees QTc Int : 449 ms Normal sinus rhythm Possible Left atrial enlargement Nonspecific ST abnormality Abnormal ECG Confirmed by KATIUSKA PACE, RUMA ([id number]), photography editor DENA BUSBY ([id number]) on 07/21/2022 11:29:47 AM Referred By: Confirmed By:RUMA HARP MD
--- NOTE | 2022-07-17 17:28 | EDS_ITS ---
HPI History of Present Illness Chief Complaint: Hypertension Informant: patient Narrative Narrative: 2-year-old female presenting to the emergency room with hypertension and headache. Patient states that 2 weeks ago she had a knee surgery. It was noted that time that she was hypertensive and has remained hypertensive in the 160-180 systolic range since that time. She notes a generalized headache. She denies any chest pain or shortness of breath. Her daughter is a nurse has been taking her blood pressures. She made an appoint with her doctor but they cannot see her until next . She talked to her orthopedic surgeon and they recommended that she come to the emergency. Patient denies any prior history of hypertension but as stated that her blood pressure has been borderline with her doctor for some time. She also notes a history of hypercholesterolemia. She does have a history of anxiety and is on Lexapro. She states her anxiety has never really caused problems with her blood pressure [facility] Medical History Carpal tunnel syndrome Diarrhea Hyperlipidemia Sleep apnea Home Medications atorvastatin 10 mg tablet 10 mg PO QHS cholesterol 12/03/15 [History Last Taken Unknown] coenzyme [id number] E 100 mg-5 unit capsule (Co Q-10 (with Vit E)) 1 ea PO DAILY supplement 12/03/15 [History Last Taken Unknown] calcium carbonate 500 mg calcium (1,250 mg) tablet 650 mg PO BID supplement 11/27/16 [History Last Taken Unknown] escitalopram oxalate 5 mg tablet 5 mg PO DAILY depression 07/11/19 [History Last Taken Unknown] cholecalciferol (vitamin D3) 25 mcg (1,000 unit) tablet 25 mcg PO DAILY supplement 11/20/19 [History Last Taken Unknown] amlodipine 5 mg tablet 5 mg PO DAILY #30 tabs 07/17/22 [Rx Last Taken Unknown] Allergy/AdvReac Type Severity Reaction Status Date / Time acetaminophen [From Vicodin] Allergy Nausea Verified 07/17/22 16:02 hydrocodone [From Vicodin] Allergy Nausea Verified 07/17/22 16:02 Family History Mother Colon cancer Osteoporosis Heart disease Father CVA (cerebral vascular accident) Hypertension Hyperlipidemia Heart disease Diabetes Surgical History History of colonoscopy History of hysterectomy History of lumpectomy of left breast Status post left partial knee replacement Social History Smoking Status: Never smoker ROS ROS ED Constitutional Constitutional ED: Denies chills or weight loss Eyes Eyes: Denies change in vision or diplopia ENT ENT ED: Denies ear pain, rhinorrhea or sore throat Cardiovascular Cardiovascular: Denies chest pain, orthopnea, palpitations or racing heartbeat Respiratory/Chest Respiratory/Chest: Denies cough, dyspnea or orthopnea Gastrointestinal Gastrointestinal: Denies abdominal pain, diarrhea, nausea or vomiting Genitourinary Genitourinary ED: Denies dysuria, hematuria or urinary frequency Musculoskeletal Musculoskeletal: Denies arthralgias or myalgias Integumentary Denies abscess or rash Neurologic Neurologic: Reports headache(s); Denies weakness Psychiatric Psychiatric: Denies anxiety, depression, suicidal ideation or suicidal thoughts Endocrine Endocrinology: Denies polydipsia, polyphagia or polyuria Allergic/Immunologic Allergic/Immunologic ED: Denies mouth swelling, tongue swelling or urticaria EXAM Physical Exam Const Vital Signs: 07/17/22 16:03 07/17/22 18:15 Temperature 96.4 F L Temperature Source Temporal Pulse Rate 115 H 27 L Respiratory Rate 18 88 H Blood Pressure 196/119 H 175/95 H Blood Pressure Mean 144 121 Pulse Ox 98 96 Oxygen Delivery Method Room Air Room Air Positive well nourished and well developed General Appearance ED: well developed HEENT Reports normocephalic, head/scalp atraumatic and moist mucous membranes Eyes PERRL and EOMs intact bilaterally Neck no lymphadenopathy, supple and no JVD Resp normal respiratory effort and clear to auscultation bilaterally Cardio regular rate, regular rhythm and no murmurs GI normal to inspection, nondistended, normoactive bowel sounds and non-tender Palpation: soft Back/Spine no CVA tenderness and normal ROM Extremity normal to inspection General Extremety ED: Negative for edema General Extremity: Negative for edema Neuro oriented x3 and CN's II-XII intact bilaterally Sensorium / Orientation: alert Motor Exam: strength 5/5 throughout Psych mental status grossly normal Mood & Affect: Negative for depressed or tearful Skin no rashes or lesions noted and no wounds MDM MDM MDM Narrative Medical decision making narrative: My interpretation of the chest x-ray is no acute process. Basic labs including creatinine of 0.8 is normal. Patient's blood pressure has come down significantly currently 148/92. Her EKG is a normal sinus rhythm. Clinically the patient has been on the watch list for her high blood pressure and is now having significantly elevated readings as well as headache at home. I think a reasonable dose given her active lifestyle and her overall health would be to place her on amlodipine at 5 mg. She has appointment next week. We talked about monitoring blood pressure and returning if worsening or concerns Lab Data Attestation: I reviewed the patient's lab results. Labs: Laboratory Results - last 24 hr 07/17/22 07/17/22 17:35 17:35 WBC 7.7 RBC 4.90 Hgb 13.4 Hct 41.8 MCV 85.3 MCH 27.3 MCHC 32.1 RDW Std Deviation 41.9 RDW Coeff of Dawson 13.4 Plt Count 265 MPV 8.8 Immature Gran % (Auto) 0.400 Neut % (Auto) 63.4 Lymph % (Auto) 23.7 [place] % (Auto) 9.1 Eos % (Auto) 2.7 Baso % (Auto) 0.7 Absolute Neuts (auto) 4.9 Absolute Lymphs (auto) 1.82 Nucleated RBC % 0 Sodium 141 Potassium 3.8 Chloride 106 Carbon Dioxide 25.0 Anion Gap 10 BUN 21 H Creatinine 0.80 Estim Creat Clear Calc 56.93 Est GFR (MDRD) Af Amer 93 Est GFR (MDRD) Non-Af 77 BUN/Creatinine Ratio 26.2 H Glucose 94 Calcium 9.4 Total Bilirubin 0.30 AST 16 ALT 34 Alkaline Phosphatase 90 Troponin I High Sens 12 Total Protein 7.7 Albumin 3.8 Globulin 3.9 Albumin/Globulin Ratio 1.0 Radiography Diagnostic Testing: Clinical Impression(s) from Imaging Studies Chest X-Ray 07/17/22 17:50 IMPRESSION: There are no acute findings. Electronically Signed: Kevin Munoz MD at 18:12 EST , EKG Initial EKG: Attestation: I personally reviewed and interpreted this EKG as follows: Comments: Normal sinus rhythm with a ventricular rate of 84 bpm Discharge Plan Triage Chief Complaint: Hypertension Other Complaint: Headache ED Provider: Daniel Way Dx/Rx/DC Orders Clinical Impression: Essential (primary) hypertension, Headache Instructions: ED Hypertension New Begin Treatment Prescriptions: New amlodipine 5 mg tablet 5 mg PO DAILY Qty: 30 0RF No Action atorvastatin 10 MG tablet 10 mg PO QHS coenzyme [id number] E [Co Q-10 (with Vit E)] 1 EACH capsule 1 ea PO DAILY calcium carbonate 500 MG tablet 650 mg PO BID Label Comments: +D 500-400 escitalopram oxalate 5 MG tablet 5 mg PO DAILY cholecalciferol (vitamin D3) 25 MCG tablet 25 mcg PO DAILY Primary Care Provider: Rodri Riddle Referrals: Rodri Riddle MD [Primary Care Provider] - As soon as possible Disposition Disposition: Home, Self Care
[2022-07-17 17:45] LABS: Absolute Lymphocyte Count 1.82 X10^3/uL (0.83-4.51); Absolute Neutrophil Count 4.9 X10^3/uL (2.0-7.7); Basophil# 0.05 X10^3/uL; Basophil% 0.7 % (0-1); Eosinophil# 0.21 X10^3/uL; Eosinophils% 2.7 % (0-5); Hematocrit 41.8 % (37-47); Hemoglobin 13.4 g/dL (12.0-15.0); Lymphocyte # 1.82 X10^3/ul (0.83-4.51); Lymphocyte % 23.7 % (19-41); Mean Corp Hgb Conc 32.1 g/dL (32-36); Mean Corpuscular Hgb 27.3 pg (27.0-32.0); Mean Corpuscular Volume 85.3 fL (81-99); Mean Platelet Vol. 8.8 fl (6.2-12.0); Monocyte% 9.1 % (0-10); NRBC Flagged by Analyzer 0 % (0-5); Neutrophil # 4.87 X10^3/uL (2.7-7.7); Neutrophil % 63.4 % (47-70); Platelet Count 265 K/mm3 (150-450); RBC Distribution Width CV 13.4 % (11.6-14.6); RBC Distribution Width SD 41.9 fl (35.1-43.9); White Blood Count 7.7 K/mm3 (4.4-11.0)
--- NOTE | 2022-07-17 17:50 | RAD_ITS ---
STUDY: X-RAY CHEST REASON FOR EXAM: Female, 62 years old. CHEST PAIN hypertension TECHNIQUE: XR Chest 1 View COMPARISON: None FINDINGS: There is no demonstrated pleural abnormality. Normal size heart. Normal mediastinum and scarlett. Normal visualized pulmonary arteries. Normal visualized aortic arch and descending thoracic aorta. There are diffuse degenerative changes of the visualized thoracic spine. Normal visualized ribs, clavicles, and shoulders. There is no demonstrated abnormality of the visualized soft tissue structures of the upper abdomen. RAD/Chest 1 View (Portable) IMPRESSION: There are no acute findings. Electronically Signed: Kevin Munoz MD at 18:12 EST ,
[2022-07-17 18:01] LABS: AST(SGOT) 16 U/L (15-37); Alanine Aminotransfer ALT/SGPT 34 U/L (13-56); Albumin, Serum 3.8 g/dL (3.2-5.0); Alkaline Phosphatase 90 U/L (45-117); Anion Gap 10 (5-15); BUN 21 mg/dL (7-18); BUN/Creat Ratio 26.2 RATIO (10-20); Calcium,Total 9.4 mg/dL (8.5-10.1); Chloride 106 mmol/L (98-107); EST Glomerular Filtration Rate 77 mL/min (>60); Est Glom Filt Rate - Afr Amer 93 mL/min (>60); Estimated Creatinine Clearance 56.93 ml/min; Globulin 3.9 g/dL (2.2-4.2); Glucose 94 mg/dL (74-106); Potassium 3.8 mmol/L (3.5-5.1); Protein, Total 7.7 g/dL (6.4-8.2); Sodium Level 141 mmol/L (136-145); Troponin-I HS 12 pg/mL (3.0-54.0)
[2022-07-17 18:15] VITALS: BP 175/95; PULSE 27; RESP 88; O2SAT 96
[2022-07-17 18:53] VITALS: BP 148/92; PULSE 84; RESP 16; O2SAT 98
== END 2022-07-17 18:55 | disposition home or self-care (01) ==
PROVIDERS: Emergency Provider Emergency Medicine; PCP Family Medicine; Visit Provider Emergency Medicine
DX: I10 Essential (primary) hypertension (principal); R51.9 Headache, unspecified; G47.30 Sleep apnea, unspecified
CPT/HCPCS: 71045; 80053; 84484; 85025; 93005; 99284; A4216

== ENCOUNTER → 2022-11-04 | Outpatient (CLI) | payer OTHER, SELFPAY ==
--- NOTE | 2022-11-04 08:57 | US_ITS ---
STUDY: ULTRASOUND BREAST - LEFT REASON FOR EXAM: Female, 62 years old. Painful rash in the upper left quadrant of the left breast. TECHNIQUE: Axial and longitudinal images of the LEFT breast were performed with a high resolution ultrasound transducer. # OF IMAGES: 24 COMPARISON: Comparison is made with prior mammogram done earlier in the day. FINDINGS: LEFT Breast: Heterogeneously dense fibroglandular tissue. No sonographic abnormality is seen. US/Breast Limited Unilateral IMPRESSION: No sonographic abnormality is seen. ASSESSMENT CATEGORY: BIRADS Category 1: Negative. A letter regarding these results will be sent to the patient by the facility within 30 days. Electronically Signed: Shoaib Kuhn MD at 15:06 EST ,
--- NOTE | 2022-11-04 09:12 | BI_ITS ---
MAMMOGRAPHY - BILATERAL DIAGNOSTIC REASON FOR EXAM: Female, 62 years old. Left breast pain and skin rash at the 12 o''clock position of the breast. PERTINENT HISTORY: Personal history of breast cancer. Prior left lumpectomy with radiation and chemotherapy. TECHNIQUE: Digital bilateral breast winifred (3D mammographic acquisition) in the CC and MLO projections. 2-D mediolateral oblique (MLO) and craniocaudad (CC) views of both breasts were obtained. CAD: Full Field Digital Mammography with Computer Added Detection was performed. COMPARISON: Comparison is made with prior study of 01/07/2021 and 01/08/2022. FINDINGS: Breast Composition: The breasts are heterogeneously dense, which may obscure small masses. There are no dominant masses or suspicious calcifications. The patient is status post lumpectomy in the deep upper outer aspect of the left breast. Stable dystrophic calcification at the operative site. Small right benign-appearing axillary lymph nodes. No other significant abnormalities are identified. There has been no significant change since the prior study. BI/DIAG MAMM W/CAD, BILAT IMPRESSION: Stable bilateral diagnostic mammogram. With the patient''s history of pain and rash in the left breast, targeted ultrasound correlation is recommended. ASSESSMENT CATEGORY: BIRADS Category 0: Incomplete. Need additional imaging evaluation. A letter regarding these results will be sent to the patient by the facility within 30 days. Approximately 10% of breast cancers are not detected by mammography. A normal mammogram should not delay biopsy of a clinically suspicious abnormality. Electronically Signed: Shoaib Kuhn MD at 12:21 EST ,
== END | disposition home or self-care (01) ==
LOC: OPBI 08:54
PROVIDERS: PCP Family Medicine; Visit Provider Nurse Practitioner Family
DX: N64.4 Mastodynia (principal)
CPT/HCPCS: 76642; 77062; 77066; G0279

== ENCOUNTER → 2023-02-23 | Outpatient (CLI) | payer OTHER, SELFPAY ==
--- NOTE | 2023-02-23 08:01 | CT_ITS ---
EXAM: CT RIGHT LOWER EXTREMITY WITHOUT INTRAVENOUS CONTRAST CLINICAL INDICATION: DEFORMITY TECHNIQUE: Helically acquired images were obtained of the right lower extremity without intravenous contrast. 2-D reformats were performed by the technologist. CTDIvol = ( 18.76 ) mGy, DLP = ( 1322.28 ) mGycm This CT exam was performed using one or more of the following dose reduction techniques: automated exposure control, adjustment of the mA and/or kV according to patient size, and/or use of iterative reconstruction technique. COMPARISON: No relevant prior studies available. 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 Moderate osteoarthrosis at the lateral patellofemoral articulation. At least moderate suprapatellar joint effusion. Mild to moderate degenerative changes at the pubic symphysis and SI joints Small superior enthesophyte. Small bone island at the lateral tibial plateau. No suspicious lytic or sclerotic lesions of bone. Remote trauma the inferior process of the medial malleus. Ankle mortise intact. No osteochondral lesions of the tibiotalar articulation. Prominent plantar calcaneal enthesophyte. Moderate tarsometatarsal joint degenerative changes. Soft tissues: No organized fluid collections or any other soft tissue masses. At least small posterior subtalar joint effusion. 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 Electronically Signed: Fredy Vizcarra MD at 21:59 EDT ,
[2023-02-23 09:55] LABS: Absolute Lymphocyte Count 1.28 X10^3/uL (0.83-4.51); Absolute Neutrophil Count 4.1 X10^3/uL (2.0-7.7); Basophil# 0.03 X10^3/uL; Basophil% 0.5 % (0-1); Eosinophil# 0.09 X10^3/uL; Eosinophils% 1.4 % (0-5); Hematocrit 41.4 % (37-47); Hemoglobin 13.6 g/dL (12.0-15.0); Lymphocyte # 1.28 X10^3/ul (0.83-4.51); Lymphocyte % 20.2 % (19-41); Mean Corp Hgb Conc 32.9 g/dL (32-36); Mean Corpuscular Hgb 28.2 pg (27.0-32.0); Mean Corpuscular Volume 85.7 fL (81-99); Mean Platelet Vol. 9.5 fl (6.2-12.0); Monocyte# 0.81 X10^3/uL; Monocyte% 12.8 % (0-10); NRBC Flagged by Analyzer 0 % (0-5); Neutrophil # 4.12 X10^3/uL (2.7-7.7); Neutrophil % 64.8 % (47-70); Platelet Count 252 K/mm3 (150-450); RBC Distribution Width CV 13.4 % (11.6-14.6); RBC Distribution Width SD 42.1 fl (35.1-43.9); Red Blood Count 4.83 M/mm3 (4.2-5.4); White Blood Count 6.4 K/mm3 (4.4-11.0)
[2023-02-23 10:04] LABS: Albumin, Serum 3.8 g/dL (3.2-5.0); Anion Gap 6 (5-15); BUN 16 mg/dL (7-18); Calcium,Total 9.4 mg/dL (8.5-10.1); Chloride 106 mmol/L (98-107); Creatinine, Serum 0.89 mg/dL (0.55-1.02); EST Glomerular Filtration Rate 68 mL/min (>60); Est Glom Filt Rate - Afr Amer 82 mL/min (>60); Glucose 97 mg/dL (74-106); Potassium 3.6 mmol/L (3.5-5.1); Sodium Level 137 mmol/L (136-145)
== END | disposition home or self-care (01) ==
PROVIDERS: PCP Family Medicine; Referring Provider Specialist; Visit Provider Specialist
DX: Z01.810 Encounter for preprocedural cardiovascular examination (principal); M21.161 Varus deformity, not elsewhere classified, right knee
CPT/HCPCS: 36415; 73700; 80048; 82040; 85025; 93005

== ENCOUNTER 2023-10-21 10:48 | Observation (INO) | payer OTHER, SELFPAY ==
[2023-10-21] VITALS (7 sets, daily range): BP systolic 118–159; BP diastolic 74–92; PULSE 82–97; RESP 14–20; TEMP 36.3–36.7; O2SAT 96–98; BMI 30.8; BMI 30.3
--- NOTE | 2023-10-21 11:03 | EKG12_ITS ---
Test Reason : CP Blood Pressure : / mmHG Vent. Rate : 086 BPM Atrial Rate : 086 BPM P-R Int : 126 ms QRS Dur : 072 ms QT Int : 382 ms P-R-T Axes : 040 000 043 degrees QTc Int : 457 ms Normal sinus rhythm Possible Inferior infarct , age undetermined Abnormal ECG Present Confirmed by Sukhwinder Amaro ([id number]), primer expeditor and drier DENA BUSBY ([id number]) on 10/22/2023 9:41:18 AM Referred By: KEELEY/MARIA GUADALUPE Confirmed By:Sukhwinder Amaro
[2023-10-21 11:10] LABS: Absolute Lymphocyte Count 1.37 X10^3/uL (0.83-4.51); Absolute Neutrophil Count 4.1 X10^3/uL (2.0-7.7); Basophil# 0.05 X10^3/uL; Basophil% 0.8 % (0-1); Eosinophil# 0.13 X10^3/uL; Eosinophils% 2.1 % (0-5); Hematocrit 44.6 % (37-47); Hemoglobin 14.4 g/dL (12.0-15.0); Lymphocyte # 1.37 X10^3/ul (0.83-4.51); Lymphocyte % 21.7 % (19-41); Mean Corp Hgb Conc 32.3 g/dL (32-36); Mean Corpuscular Hgb 27.5 pg (27.0-32.0); Mean Corpuscular Volume 85.3 fL (81-99); Mean Platelet Vol. 9.9 fl (6.2-12.0); Monocyte# 0.59 X10^3/uL; Monocyte% 9.4 % (0-10); NRBC Flagged by Analyzer 0 % (0-5); Neutrophil # 4.14 X10^3/uL (2.7-7.7); Neutrophil % 65.7 % (47-70); Platelet Count 245 K/mm3 (150-450); RBC Distribution Width CV 13.8 % (11.6-14.6); RBC Distribution Width SD 42.6 fl (35.1-43.9); Red Blood Count 5.23 M/mm3 (4.2-5.4); White Blood Count 6.3 K/mm3 (4.4-11.0)
[2023-10-21] MEDS: Aspirin 81 MG TAB.CHEW 324 MG PO (11:12)
[2023-10-21 11:25] LABS: Anion Gap 5 (5-15); BUN 19 mg/dL (7-18); BUN/Creat Ratio 24.9 RATIO (10-20); Calcium,Total 9.3 mg/dL (8.5-10.1); Chloride 108 mmol/L (98-107); Creatinine, Serum 0.76 mg/dL (0.55-1.02); EST Glomerular Filtration Rate 81 mL/min (>60); Est Glom Filt Rate - Afr Amer 98 mL/min (>60); Glucose 157 mg/dL (74-106); Potassium 3.5 mmol/L (3.5-5.1); Sodium Level 140 mmol/L (136-145); Troponin-I HS (w/2H Reflex) 7 pg/mL (3.0-54.0)
--- NOTE | 2023-10-21 11:30 | RAD_ITS ---
STUDY: X-RAY CHEST REASON FOR EXAM: Female, 63 years old. Chest pain TECHNIQUE: Single AP portable view of the chest. COMPARISON: Comparison is made with prior study July 17, 2022. FINDINGS: EKG electrodes are seen. Calcified granulomas in the right lower lobe. There is no demonstrated pleural abnormality. Normal size heart. Normal mediastinum and scarlett. Normal visualized pulmonary arteries. There is atherosclerotic tortuosity of the aortic arch and descending thoracic aorta. There are degenerative changes of the visualized thoracic spine. Normal visualized ribs, clavicles, and shoulders. There is no demonstrated abnormality of the visualized soft tissue structures of the upper abdomen. RAD/Chest 1 View (Portable) IMPRESSION: No acute abnormality is seen. Electronically Signed: Shoaib Kuhn MD at 11:55 EST ,
--- NOTE | 2023-10-21 11:44 | EDS_ITS ---
HPI <Halle Guerrero RN - Last Filed: 10/21/23 12:29> History of Present Illness Chief Complaint: Chest Pain Informant: patient Onset/Context/Timing Onset: Today Activity at onset: sudden and sleep Timing: Continuous Quality: Positive for Heaviness Current Severity: 4/10 Maximum Severity: 7/10 Worsened By: - (Cold) Relieved By: Remaining Still Associated Symptoms: Positive for Nausea, Diaphoresis, Dyspnea and Lightheadedness; Negative for Cough, Fever or Palpitations Narrative Narrative: Patient presents to the ED for chest heaviness and nausea. Patient reports being awakened from sleep with pain between her scapula at approximately 2 AM today lasting until approximately 430 am. Sharp chest pain immediately followed beginning at 4:30 AM lasting 3 to 4 hours. Patient reports her heart rate was racing at that time as well along with some slight shortness of breath. 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 Symptoms were also associated with paleness and cold sweats. Patient also reports an episode of approximately 3 minutes where she was unable to recall a conversation and names of people. Patient reports sharp chest pain has resolved and is now a chest heaviness with nausea. Denies dizziness or lightheadedness earlier. However when in room assessing patient, she became lightheaded and was concerned she was going to have a syncopal episode. Heart rate increased to 1 teens at that time. Patient was flushed. Symptoms lasted approximately 1 to 2 minutes. Patient with past medical history significant for hyperlipidemia, hypertension, and anxiety. Past family history includes CAD and CVA at young ages. Patient denies recent travel. Prior Similar Symptoms: No Recent Illness/Hospitalization: No CVD Risk Factors: Positive for Hypertension, Hypercholesterolemia and Family History 1' </=55 PE Risk Factors: Negative for Recent Travel/Surgery PFSH <Halle Guerrero RN - Last Filed: 10/21/23 12:29> [facility] Medical History Carpal tunnel syndrome Costochondritis Diarrhea Hyperlipidemia Pain of left breast Sleep apnea Home Medications coenzyme [id number] E 100 mg-5 unit capsule (Co Q-10 (with Vit E)) 1 ea PO DAILY supplement 12/03/15 [History Last Taken 10/20/23] calcium carbonate 500 mg calcium (1,250 mg) tablet 650 mg PO BID supplement 11/27/16 [History Last Taken 10/21/23] cholecalciferol (vitamin D3) 25 mcg (1,000 unit) tablet 25 mcg PO DAILY supplement 11/20/19 [History Last Taken 10/21/23] amlodipine 5 mg tablet 5 mg PO DAILY #30 tabs 07/17/22 [Rx Last Taken 10/20/23] multivitamin (Daily Multi-Vitamin tablet) 1 tab PO DAILY 10/21/23 [History Last Taken 10/21/23] rosuvastatin 20 mg tablet 10 mg PO QHS 10/21/23 [History Last Taken 10/20/23] Allergy/AdvReac Type Severity Reaction Status Date / Time acetaminophen [From Vicodin] Allergy Nausea Verified 10/21/23 10:49 hydrocodone [From Vicodin] Allergy Nausea Verified 10/21/23 10:49 Family History Mother Colon cancer Osteoporosis Heart disease Father CVA (cerebral vascular accident) Hypertension Hyperlipidemia Heart disease Diabetes Surgical History History of colonoscopy History of hysterectomy History of lumpectomy of left breast Status post left partial knee replacement Social History Smoking Status: Never smoker ROS <Halle Guerrero RN - Last Filed: 10/21/23 12:29> ROS ED Constitutional Constitutional ED: Reports sweats; Denies chills or fever(s) Eyes Eyes: Denies blurry vision or change in vision Cardiovascular Cardiovascular: Reports as per HPI, chest pain and racing heartbeat Respiratory/Chest Respiratory/Chest: Reports dyspnea Gastrointestinal Gastrointestinal: Reports nausea; Denies abdominal pain, diarrhea or vomiting Musculoskeletal Musculoskeletal: Denies arthralgias or myalgias Psychiatric Psychiatric: Reports anxiety EXAM <Halle Guerrero RN - Last Filed: 10/21/23 12:29> Physical Exam Const Vital Signs: 10/21/23 10:49 10/21/23 11:00 10/21/23 11:00 Temperature 97.4 F L Temperature Source Temporal Pulse Rate 92 89 Respiratory Rate 18 20 H Respiratory Effort Short of Breath Blood Pressure 146/85 H Blood Pressure Mean 105 Pulse Ox 97 97 Oxygen Delivery Method Room Air 10/21/23 11:07 10/21/23 11:16 Temperature Temperature Source Pulse Rate 97 Respiratory Rate 19 H Respiratory Effort Blood Pressure 159/92 H Blood Pressure Mean 114 Pulse Ox 98 98 Oxygen Delivery Method Room Air Room Air Positive well nourished and well developed General Appearance ED: well developed and NAD HEENT Reports moist mucous membranes normocephalic Eyes PERRL Eyes Narrative: Bilateral lateral nystagmus noted Chest Wall inspection of chest normal and palpation of chest normal Chest Narrative: No murmurs noted Resp normal respiratory effort and clear to auscultation bilaterally Effort and Inspection: Negative for respiratory distress Cardio regular rate, regular rhythm and S1 normal heart sound Peripheral Pulses: pulses 2+ throughout GI normal to inspection, nondistended, normoactive bowel sounds and soft to palpation Extremity normal to inspection General Extremety ED: Negative for edema General Extremity: Negative for edema Neuro oriented x3 Sensorium / Orientation: awake Motor Exam: strength 5/5 throughout Psych mental status grossly normal Skin no rashes or lesions noted <Dr. Inder Peña MD - Last Filed: 10/21/23 12:24> Physical Exam Const Vital Signs: 10/21/23 10:49 10/21/23 11:00 10/21/23 11:00 Temperature 97.4 F L Temperature Source Temporal Pulse Rate 92 89 Respiratory Rate 18 20 H Respiratory Effort Short of Breath Blood Pressure 146/85 H Blood Pressure Mean 105 Pulse Ox 97 97 Oxygen Delivery Method Room Air 10/21/23 11:07 10/21/23 11:16 Temperature Temperature Source Pulse Rate 97 Respiratory Rate 19 H Respiratory Effort Blood Pressure 159/92 H Blood Pressure Mean 114 Pulse Ox 98 98 Oxygen Delivery Method Room Air Room Air <Halle Guerrero RN - Last Filed: 10/21/23 12:29> Heart Score History: Moderately Suspicious ECG: Normal Age: >45 - <65 years Risk Factors: 1 or 2 Risk Factors Troponin: </= Normal Limit Score: 3 <Dr. Inder Peña MD - Last Filed: 10/21/23 12:24> Heart Score Score: 3 MDM <Halle Guerrero RN - Last Filed: 10/21/23 12:29> MDM MDM Narrative Medical decision making narrative: Patient placed on monitor and storage bin tender. IV line initiated. Labwork obtained to evaluate for leukocytosis, anemia, and electrolyte derangement. EKG obtained to evaluate for cardiac arrhythmia/ischemia. Chest x-ray obtained to evaluate for acute lung pathology, cardiac size, or mediastinal abnormality. Aspirin ordered due to concern for ACS. I have personally performed a face to face assessment of the patient and have reviewed the BROOKE Note. I performed a substantive portion of the visit including all aspects of the following. My ramirez findings include: History is [63-year-old female with intrascapular and chest pain today. No prior cardiac history. No history of DVT or PE or risk factors. There is a family history of cardiac disease. She does have recent exertional dyspnea with steps.] Exam is [well-appearing 63-year-old female. Vital signs stable afebrile. Pulse ox 97% room air no hypoxia. H EENT exam normal. Neck nontender no JVD. Lungs clear to auscultation bilaterally. Heart regular rhythm no murmur. Chest wall nontender. Abdomen soft nontender. Moving all 4 extremities. Calves are nontender without edema or cords. Equal symmetrical radial pulses. Back unremarkable. Neurologically she is awake and alert with no focal motor deficits.] Medical Decision Making [63-year-old negative cardiac workup. Initial troponin 7. She has chest pain of uncertain etiology with the exertional dyspnea. Her last stress test was around 12 years ago. She and daughter are comfortable being admitted for stress test.] Other additions or changes: [None] 10/21/23 12:24 pm Inder Sanches History & Record Review Discussion w/independent historian: Patient and Family Lab Data Attestation: I reviewed the patient's lab results. Labs: Laboratory Results - last 24 hr 10/21/23 11:03 WBC 6.3 RBC 5.23 Hgb 14.4 Hct 44.6 MCV 85.3 MCH 27.5 MCHC 32.3 RDW Std Deviation 42.6 RDW Coeff of Dawson 13.8 Plt Count 245 MPV 9.9 Immature Gran % (Auto) 0.300 Neut % (Auto) 65.7 Lymph % (Auto) 21.7 [place] % (Auto) 9.4 Eos % (Auto) 2.1 Baso % (Auto) 0.8 Absolute Neuts (auto) 4.1 Absolute Lymphs (auto) 1.37 Nucleated RBC % 0 Sodium 140 Potassium 3.5 Chloride 108 H Carbon Dioxide 27.0 Anion Gap 5 BUN 19 H Creatinine 0.76 Estim Creat Clear Calc 71.60 Est GFR (MDRD) Af Amer 98 Est GFR (MDRD) Non-Af 81 BUN/Creatinine Ratio 24.9 H Glucose 157 H Calcium 9.3 Troponin I High Sens 7 Radiography Chest X-Ray - ED: 1 View and Read by Radiologist Diagnostic Testing: Clinical Impression(s) from Imaging Studies Chest X-Ray 10/21/23 11:30 IMPRESSION: No acute abnormality is seen. Electronically Signed: Shoaib Kuhn MD at 11:55 EST , Differential Diagnosis Chest pain/SOB: ACS, aortic dissection and CHF Management Discussion w/another healthcare provider: Other (Dr. Peña, ED provider.) Treatment and Re-Evaluation :: Upon reevaluation, patient reports slight headache and continued chest heaviness rating 4 out of 10. CBC showed a normal white count of 6.3, hemoglobin 14.4, Platelets 245. Chemistry showed a slightly elevated chloride at 108 and a slightly elevated BUN at 19. Glucose was elevated at 157. High-sensitivity troponin is negative at 7. Portable chest x-ray negative for acute cardiopulmonary disease. Patient was given aspirin 325 mg p.o. Patient reports last stress test approximately 12 years ago. With continued symptoms and past family history patient will be admitted for chest pain. Discussed plan with patient and daughter. Both agreeable. <Dr. Inder Peña MD - Last Filed: 10/21/23 12:24> [employer] Narrative Medical decision making narrative: I have personally performed a face to face assessment of the patient and have reviewed the BROOKE Note. I performed a substantive portion of the visit including all aspects of the following. My ramirez findings include: History is [63-year-old female with intrascapular and chest pain today. No prior cardiac history. No history of DVT or PE or risk factors. There is a family history of cardiac disease. She does have recent exertional dyspnea with steps.] Exam is [well-appearing 63-year-old female. Vital signs stable afebrile. Pulse ox 97% room air no hypoxia. H EENT exam normal. Neck nontender no JVD. Lungs clear to auscultation bilaterally. Heart regular rhythm no murmur. Chest wall nontender. Abdomen soft nontender. Moving all 4 extremities. Calves are nontender without edema or cords. Equal symmetrical radial pulses. Back unremarkable. Neurologically she is awake and alert with no focal motor deficits.] Medical Decision Making [63-year-old negative cardiac workup. Initial troponin 7. She has chest pain of uncertain etiology with the exertional dyspnea. Her last stress test was around 12 years ago. She and daughter are comfortable being admitted for stress test.] Other additions or changes: [None] History & Record Review Discussion w/independent historian: Patient Additional record(s) reviewed:: Prior inpatient record, Prior outpatient record, Prior ED visit and Prior labs Lab Data Attestation: I reviewed the patient's lab results. Lab results narrative: CBC normal. BMP normal. Glucose 157. Initial troponin 7. Chest x-ray unremarkable. EKG normal sinus rhythm rate 86 no acute signs of IN or ischemia. Labs: Laboratory Results - last 24 hr 10/21/23 11:03 WBC 6.3 RBC 5.23 Hgb 14.4 Hct 44.6 MCV 85.3 MCH 27.5 MCHC 32.3 RDW Std Deviation 42.6 RDW Coeff of Dawson 13.8 Plt Count 245 MPV 9.9 Immature Gran % (Auto) 0.300 Neut % (Auto) 65.7 Lymph % (Auto) 21.7 [place] % (Auto) 9.4 Eos % (Auto) 2.1 Baso % (Auto) 0.8 Absolute Neuts (auto) 4.1 Absolute Lymphs (auto) 1.37 Nucleated RBC % 0 Sodium 140 Potassium 3.5 Chloride 108 H Carbon Dioxide 27.0 Anion Gap 5 BUN 19 H Creatinine 0.76 Estim Creat Clear Calc 71.60 Est GFR (MDRD) Af Amer 98 Est GFR (MDRD) Non-Af 81 BUN/Creatinine Ratio 24.9 H Glucose 157 H Calcium 9.3 Troponin I High Sens 7 Radiography Chest X-Ray - ED: 1 View, Read by ED Physician, Read by Radiologist, Heart, Lungs, Mediastinum, Bony Structures, No Acute Disease and Chronic Changes Diagnostic Testing: Clinical Impression(s) from Imaging Studies Chest X-Ray 10/21/23 11:30 IMPRESSION: No acute abnormality is seen. Electronically Signed: Shoaib Kuhn MD at 11:55 EST , Chest x-ray, portable, single view interpreted both by myself and the radiologist shows no acute abnormality. Normal cardiac silhouette. Normal mediastinum and aorta. Normal lung bonds. Rhythm Strip Rhythm Strip: Sinus Rhythm Rate: 86 Ectopy: None EKG Initial EKG: Attestation: I personally reviewed and interpreted this EKG as follows: Interpretation: Sinus Rhythm and No Acute Injury Pattern Comments: Normal sinus rhythm rate 86 no acute signs of IN or ischemia. Discharge Plan Dx/Rx/DC Orders Clinical Impression: History of hypertension, Chest pain Disposition Disposition: Acute Care Hospital [facility]
[2023-10-21 13:06] LABS: Reflex Troponin-HS? (from REC) Y
[2023-10-21 13:58] LABS: Troponin-I HS 8 pg/mL (3.0-54.0)
[2023-10-21] MEDS: Aspirin 81 MG TAB.CHEW PO (15:29)
[2023-10-21 17:11] LABS: Troponin-I HS 8 pg/mL (3.0-54.0)
--- NOTE | 2023-10-21 18:38 | HP.PCM.HOS_ITS ---
HPI - General General Date of Admission: 10/21/23 Date of Service: 10/21/23 Chief Complaint: Chest pain HPI Narrative NASIM BURCIAGA, is a 63 F who presents to the emergency room for evaluation of chest discomfort. Patient states she awoke from sleep approximately 2 AM this morning with a sharp stabbing pain in her mid back area which then radiated into her chest area. She stated it did not get worse with coughing or breathing, the discomfort did go up into her neck. Patient then stated that after a while this morning, the pain turned into a pressure-like sensation in her mid chest area. Patient came to the ER for evaluation. Evaluation in the ER included an EKG which showed a normal sinus rhythm without evidence of ischemic changes, patient CBC was unremarkable, patient's troponin was normal. Patient's chest x-ray was unremarkable, her chemistry profile was unremarkable. At the time my examination, patient stated she still did have some chest pressure in the precordial area, she rated about a 3 or 4 out of 10 in intensity. Patient will be placed into observation status on PCU, cardiac enzymes will be cycled, she will be scheduled for a nuclear exercise stress test tomorrow if her enzymes remain normal. I do not feel the patient needs an echocardiogram performed [facility] Medical History Carpal tunnel syndrome Costochondritis Diarrhea Hyperlipidemia Pain of left breast Sleep apnea Home Medications coenzyme [id number] E 100 mg-5 unit capsule (Co Q-10 (with Vit E)) 1 ea PO DAILY supplement 12/03/15 [History Last Taken 10/20/23] calcium carbonate 500 mg calcium (1,250 mg) tablet 650 mg PO BID supplement 11/27/16 [History Last Taken 10/21/23] cholecalciferol (vitamin D3) 25 mcg (1,000 unit) tablet 25 mcg PO DAILY supplement 11/20/19 [History Last Taken 10/21/23] amlodipine 5 mg tablet 5 mg PO DAILY #30 tabs 07/17/22 [Rx Last Taken 10/20/23] multivitamin (Daily Multi-Vitamin tablet) 1 tab PO DAILY 10/21/23 [History Last Taken 10/21/23] rosuvastatin 20 mg tablet 10 mg PO QHS 10/21/23 [History Last Taken 10/20/23] Allergy/AdvReac Type Severity Reaction Status Date / Time acetaminophen [From Vicodin] Allergy Nausea Verified 10/21/23 10:49 hydrocodone [From Vicodin] Allergy Nausea Verified 10/21/23 10:49 Family History Mother Colon cancer Osteoporosis Heart disease Father CVA (cerebral vascular accident) Hypertension Hyperlipidemia Heart disease Diabetes Surgical History History of colonoscopy History of hysterectomy History of lumpectomy of left breast Status post left partial knee replacement Social History Smoking Status: Never smoker ROS Constitutional Constitutional: Denies anorexia, change in weight, fever(s), night sweats or weakness Eyes Eyes: Denies blurry vision, change in vision, discharge from eye(s) or eye pain Cardiovascular Cardiovascular: Reports chest pain; Denies claudication, edema or palpitations Respiratory/Chest Respiratory/Chest: Denies cough, hemoptysis, shortness of breath at rest or shortness of breath with exertion Gastrointestinal Gastrointestinal: Denies abdominal pain, constipation, diarrhea, hematemesis, hematochezia, melena, nausea or vomiting Genitourinary Genitourinary: Denies dysuria, hematuria, urinary frequency, urinary hesitancy, urinary incontinence or urinary urgency Musculoskeletal Musculoskeletal: Denies back pain, joint pain, joint stiffness, joint swelling, myalgias or neck pain Neurologic Neurologic: Denies abnormal gait, abnormal speech, dizziness, focal weakness, headache(s), loss of vision, numbness, other visual disturbances, paresthesias, syncope or tingling Psychiatric Psychiatric: Denies anxiety, cognitive impairment, depression, irritability, mood swings or suicidal ideation Endocrine Endocrinology: Denies change in body appearance, cold intolerance, excessive sweating, heat intolerance, polydipsia or polyuria Hematologic/Lymphatic Hematologic/Lymphatic: Denies none, anemia, easy bleeding, easy bruising or lymphadenopathy Allergic/Immunologic Allergic/Immunologic: Denies rhinitis, urticaria, eczemia or asthma Vital Signs Vital Signs Vital Signs: 10/21/23 10:49 10/21/23 11:00 10/21/23 11:00 Temperature 97.4 F L Temperature Source Temporal Pulse Rate 92 89 Respiratory Rate 18 20 H Respiratory Effort Short of Breath Respiratory Depth Respiratory Pattern Blood Pressure 146/85 H Blood Pressure Mean 105 Blood Pressure Source Blood Pressure Position Blood Pressure Location Pulse Ox 97 97 Oxygen Delivery Method Room Air 10/21/23 11:07 10/21/23 11:16 10/21/23 13:06 Temperature 97.5 F L Temperature Source Pulse Rate 97 82 Respiratory Rate 19 H 16 Respiratory Effort Respiratory Depth Respiratory Pattern Blood Pressure 159/92 H 128/79 H Blood Pressure Mean 114 95 Blood Pressure Source Blood Pressure Position Blood Pressure Location Pulse Ox 98 98 97 Oxygen Delivery Method Room Air Room Air 10/21/23 13:58 10/21/23 15:00 Temperature 97.8 F Temperature Source Temporal Pulse Rate 82 Respiratory Rate 14 Respiratory Effort Normal Non-Labored Respiratory Depth Normal Respiratory Pattern Normal Blood Pressure 118/74 Blood Pressure Mean 88 Blood Pressure Source Monitor Blood Pressure Position Semi-Fowlers Blood Pressure Location Left Arm Pulse Ox 98 Oxygen Delivery Method Room Air Room Air Weight Weight: 75.2 kg Body Mass Index (BMI) 30.3 Physical Exam Const alert, oriented x3, no apparent distress, average body habitus and healthy appearing General Appearance: cooperative, well kempt and well developed Orientation / Consciousness: awake, oriented to person, oriented to place and oriented to time HEENT normocephalic, head/scalp atraumatic, hearing grossly normal bilaterally and moist oral mucous membranes Eyes PERRL, EOMs intact bilaterally and conjunctivae normal Neck supple, no JVD, thyroid normal and no carotid bruits General: trachea midline Resp normal respiratory effort, no retractions, no use of accessory muscles and clear to auscultation bilaterally Auscultation: Negative for rales, rhonchi or wheezes Cardio regular rate, regular rhythm, S1 normal heart sound, S2 normal heart sound, no murmurs, no rub and no gallops GI normal to inspection, nondistended, normoactive bowel sounds, soft to palpation, non-tender and non-distended Extremity no clubbing, cyanosis or edema Skin no rashes or lesions noted General Skin Exam: no breakdown Neuro oriented x3, CN's II-XII intact bilaterally, moves all extremities, no focal mo tor deficits and no sensory deficits noted Sensorium / Orientation: awake, alert, oriented to person, oriented to place and oriented to time Speech: speech normal Psych affect normal Results Lab / Micro Data 10/21/23 11:03 10/21/23 11:03 Labs: Laboratory Results - last 24 hr 10/21/23 11:03: WBC 6.3, RBC 5.23, Hgb 14.4, Hct 44.6, MCV 85.3, MCH 27.5, MCHC 32.3, RDW Std Deviation 42.6, RDW Coeff of Dawson 13.8, Plt Count 245, MPV 9.9, Immature Gran % (Auto) 0.300, Neut % (Auto) 65.7, Lymph % (Auto) 21.7, [place] % (Auto) 9.4, Eos % (Auto) 2.1, Baso % (Auto) 0.8, Absolute Neuts (auto) 4.1, Absolute Lymphs (auto) 1.37, Nucleated RBC % 0, Sodium 140, Potassium 3.5, Chloride 108 H, Carbon Dioxide 27.0, Anion Gap 5, BUN 19 H, Creatinine 0.76, Estim Creat Clear Calc 71.60, Est GFR (MDRD) Af Amer 98, Est GFR (MDRD) Non-Af 81, BUN/Creatinine Ratio 24.9 H, Glucose 157 H, Calcium 9.3, Troponin I High Sens 7 10/21/23 13:19: Troponin I High Sens 8 10/21/23 16:37: Troponin I High Sens 8 Rhythm Strip Rhythm Strip: Sinus Rhythm Rate: 86 Ectopy: None Imaging Radiology Impression Chest X-Ray 10/21/23 11:30 IMPRESSION: No acute abnormality is seen. Electronically Signed: Shoaib Kuhn MD at 11:55 EST , Assessment & Plan Assessment/Plan (1) Chest pain: PLAN: Plan 1. Chest pain-etiology unclear, I think it unlikely that her chest discomfort is cardiac in nature as she has had a for several hours and her enzymes are normal. Patient was placed in observation status on PCU, enzymes will be cycled and she will undergo an exercise nuclear stress test if her enzymes remain normal. #2 essential hypertension-patient will remain on her present medications #3 hyperlipidemia-patient will remain on her statin Total clinical time spent by myself addressing the patient's medical issues, reviewing all of her data, and collaborating with the patient's care team : 55 minutes Charges/Coding Visit Charges Inpatient E&M: 94736 Init Hosp L2
--- OUTSIDE RECORDS SUMMARY | 2023-10-21 19:59 | XMS RPT_ITS | CCD ---
Author Name Unknown Address [facility] [address] [place] [address] Organization [facility] Care Team Providers Care Chief Nurse Anesthetist Name Role Phone Rodri Mosqueda MD Primary Care Provider JAYLIN PACE, DR TOUSSAINT Primary Care Physician EVELINE PACE, NEHA Rivers Attending Unavailable JAYLIN PACE., DR. TOUSSAINT Primary Care Unavailab Milagro PACE, Rodri Chao Primary Care Provider Rodri Mosqueda MD Primary Care Provider Rodri Mosqueda MD Primary Care Provider Kirk Jaimes Unavailable [facility], [place] Unavailable Rodri Mosqueda MD Primary Care Provider Kirk Jaimes MD Unavailable [facility], Eliud Unavailable [phone] RODRI MOSQUEDA Primary Care Unavailab le RODRI MOSQUEDA Primary Care Unavailab le RODRI MOSQUEDA Primary Care Unavailab RODRI Campbell Referring Unavailab le RODRI MOSQUEDA Primary Care Unavailab le RODRI MOSQUEDA Referring Unavailab le RODRI MOSQUEDA Primary Care Unavailab le RODRI MOSQUEDA Attending Unavailab RODRI Campbell Primary Care Unavailab le RODRI MOSQUEDA Attending Unavailab le RODRI MOSQUEDA Primary Care Unavailab le RODRI MOSQUEDA Referring Unavailab le RODRI MOSQUEDA Primary Care RODRI Pfeiffer Attending RODRI Pfeiffer Primary Care UnavailRODRI Kwong Referring RODRI Pfeiffer Primary Care UnavailRODRI Kwong Attending UnavailRODRI Kwong Primary Care Unavailab RODRI Campbell Attending Unavailab Campbell, RODRI CHAO Primary Care Unavailab le Allergies Allergy Classification Reported Allergen(s) Allergy Type Date of Onset Reaction(s) Facility (15 sources) HYDROcodone; Translations: [HYDROCODONE] Drug Allergy 2 Vomiting [facility] (15 sources) Mold Extract; Translations: [MOLD] Drug Allergy 1 Unknown [facility] (15 sources) Seasonal allergy; Translations: [SEASONAL ALLERGIES] Allergy to substance 1 Other: See Comments, Unknown [facility] (15 sources) Mildew; Translations: [MILDEW] Allergy to substance 1 Unknown [facility] (8 sources) Acetaminophen / HYDROcodone; Translations: [HYDROCODONE-ACET AMINOPHEN] Drug Allergy 2 GI Upset [facility] (7 sources) Acetaminophen; Translations: [ACETAMINOPHEN] Drug Allergy 3 Unknown [facility] Medications Current Medications Medication Drug Class(es) Dates Sig (Normalized) Sig (Original) atorvastatin 10 mg oral tablet (1 source) HMG-CoA Reductase Inhibitor Start: 01-04-2020 atorvastatin 10 mg oral tablet Dose : 10 mg = 1 tab(s), Oral, Daily, 0 Refill(s) Start Date: 01/04/20 Status: Ordered Calcium (1 source) Phosphate Binder, Calcium Start: 01-04-2020 take 1 tablet by mouth once daily Calcium 500+D oral tablet, chewable Dose = 1 tab(s), Chewed, Daily, 0 Refill(s) Start Date: 01/04/20 Status: Ordered cephalexin 500 mg oral capsule (1 source) Cephalosporin Antibacterial Start: 08-28-2022 End: 09-04-2022 take 1 capsule by mouth twice daily cephALEXin (KEFLEX) 500 mg capsule Take 1 capsule by mouth twice daily for 7 days. 14 capsule 0 08/28/2022 09/04/2022 Active Completed/Discontinued Medications Medication Drug Class(es) Dates Sig (Normalized) Sig (Original) [id number] 200 actuat albuterol 0.09 mg/actuat metered dose inhaler (2 sources) beta2-Adrenergic Agonist Start: 03-06-2022 End: 07-23-2022 take 2 puff(s) by inhalation every six hours as needed for wheezing albuterol HFA (PROVENTIL HFA, VENTOLIN HFA) 90 mcg/actuation inhaler Inhale 2 Puffs as instructed every 6 hours as needed for wheezing/shortness of breath. 1 Each 0 03/06/2022 07/23/2022 Discontinued Problems Active Problems Problem Classification Problem Date Documented Da te Episodic/Chronic Anxiety disorders (16 sources) Anxiety; Translations: [Anxiety disorder, unspecified] Onset: 06-28-2017 Chronic Cancer of breast (20 sources) Malignant neoplasm of female breast; Translations: [Malignant neoplasm of unspecified site of unspecified female breast] Onset: 04-10-2007 04-10-2007 Chronic Disorders of lipid metabolism (19 sources) Hypercholesterolem ia; Translations: [Pure hypercholesterolem ia, unspecified] Onset: 06-28-2017 07-23-2022 Chronic Essential hypertension (20 sources) Essential hypertension; Translations: [Essential (primary) hypertension] Onset: 07-23-2022 Chronic Mood disorders (16 sources) Depressive disorder; Translations: [Depression, unspecified depression type] Onset: 06-28-2017 Chronic Nutritional deficiencies (13 sources) Vitamin D deficiency; Translations: [Vitamin D deficiency, unspecified] Onset: 09-18-2020 07-23-2022 Chronic Other connective tissue disease (1 source) Myalgia, unspecified site; Translations: [Myalgias] Onset: 08-16-2023 Episodic Other gastrointestinal disorders (13 sources) Irritable bowel syndrome with diarrhea; Translations: [Irritable bowel syndrome with diarrhea] Onset: 11-04-2017 07-23-2022 Chronic Other lower respiratory disease (1 source) Cough; Translations: [Acute cough] Episodic Other non-traumatic joint disorders (14 sources) Polyarthropathy; Translations: [Polyarthritis, unspecified] Onset: 07-24-2020 07-23-2022 Chronic Other non-traumatic joint disorders (1 source) Multiple joint pain; Translations: [Pain in unspecified joint] 10-13-2023 Episodic Other non-traumatic joint disorders (1 source) Pain in unspecified joint; Translations: [Arthralgia of multiple joints] Onset: 10-13-2023 Episodic Other upper respiratory disease (1 source) Respiratory tract congestion; Translations: [Nasal congestion] Episodic Unclassified (1 source) Pre-Op Exam Onset: 03-03-2023 Past or Other Problems Problem Classification Problem Date Documented Da te Episodic/Chronic Cancer of breast (13 sources) History of malignant neoplasm of breast; Translations: [Personal history of malignant neoplasm of breast] Onset: 2 07-23-2022 Episodic Gastrointestinal hemorrhage (14 sources) Gastrointestinal hemorrhage; Translations: [Gastrointestinal hemorrhage, unspecified] Onset: 7 05-02-2007 Episodic Genitourinary symptoms and ill-defined conditions (5 sources) Increased frequency of urination; Translations: [Frequency of micturition] Onset: 3 Episodic Headache; including migraine (13 sources) Headache; Translations: [Headache] Onset: 2 07-23-2022 Episodic Immunizations and screening for infectious disease (4 sources) Patient encounter status; Translations: [Encounter for immunization] Onset: 3 04-12-2023 Episodic Noninfectious gastroenteritis (13 sources) Chronic diarrhea; Translations: [Noninfective gastroenteritis and colitis, unspecified] Onset: 1 07-23-2022 Episodic Other bone disease and musculoskeletal deformities (13 sources) Osteopenia; Translations: [Other specified disorders of bone density and structure, unspecified site] Onset: 2 07-23-2022 Episodic Other screening for suspected conditions (not mental disorders or infectious disease) (3 sources) Encounter for screening for diseases of the blood and blood-forming organs and certain disorders involving the immune mechanism; Translations: [Encounter for screening for lipoid disorders] Onset: 3 Episodic Results Test Name Value Interpretation Reference Range Facil ity Vital Signs Date Time Vital Sign Value Performing Clinician Porfirio auguste 10-13-2023 09:02-0500 Body height 157.5 cm Rodri Mosqueda MD Work Phone: [facility] 10-13-2023 09:02-0500 Body temperature 97.59 [degF] Rodri Mosqueda MD Work Phone: [facility] 10-13-2023 09:02-0500 Body weight 76.2 kg Rodri Mosqueda MD Work Phone: [facility] 10-13-2023 09:02-0500 Diastolic blood pressure 84 mm[Hg] Rodri Mosqueda MD Work Phone: [facility] 10-13-2023 09:02-0500 Heart rate 78 /min Rodri Mosqueda MD Work Phone: [facility] 10-13-2023 09:02-0500 Respiratory rate 18 /min Rodri Mosqueda MD Work Phone: [facility] 10-13-2023 09:02-0500 SaO2% (BldA) [Mass fraction] 96 % Rodri Mosqueda MD Work Phone: [facility] 10-13-2023 09:02-0500 Systolic blood pressure 132 mm[Hg] Rodri Mosqueda MD Work Phone: [facility] 08-13-2023 11:47-0500 Body temperature 96.4 [degF] Soraida Athy PA-C Work Phone: [facility] 08-13-2023 11:47-0500 Body weight 77.11 kg Soraida Athy PA-C Work Phone: [facility] 08-13-2023 11:47-0500 Diastolic blood pressure 81 mm[Hg] Soraida Athy PA-C Work Phone: [facility] 08-13-2023 11:47-0500 Heart rate 85 /min Soraida Athy PA-C Work Phone: [facility] 08-13-2023 11:47-0500 Respiratory rate 20 /min Soraida Athy PA-C Work Phone: [facility] 08-13-2023 11:47-0500 SaO2% (BldA) [Mass fraction] 98 % Soraida Athy PA-C Work Phone: [facility] 12-08-2023 11:47-0500 Systolic blood pressure 125 mm[Hg] Soraida Dodson PA-C Work Phone: [facility] 11-04-2022 15:33-0500 Body height 157.5 cm Rodri Mosqueda MD Work Phone: [facility] 11-04-2022 15:33-0500 Body temperature 97.3 [degF] Rodri Mosqueda MD Work Phone: [facility] 11-04-2022 15:33-0500 Body weight 76.39 kg Rodri Mosqueda MD Work Phone: [facility] 11-04-2022 15:33-0500 Diastolic blood pressure 84 mm[Hg] Rodri Mosqueda MD Work Phone: [facility] 11-04-2022 15:33-0500 Heart rate 92 /min Rodri Mosqueda MD Work Phone: [facility] 11-04-2022 15:33-0500 Respiratory rate 18 /min Rodri Mosqueda MD Work Phone: [facility] 11-04-2022 15:33-0500 SaO2% (BldA) [Mass fraction] 95 % Rodri Mosqueda MD Work Phone: [facility] 11-04-2022 15:33-0500 Systolic blood pressure 124 mm[Hg] Rodri Mosqueda MD Work Phone: [facility] 10-25-2022 10:07-0500 Body temperature 97.7 [degF] Alex Cornell APRN.GRADE TEACHER Work Phone: [facility] 10-25-2022 10:07-0500 Body weight 76.2 kg Alex Cornell APRN.GRADE TEACHER Work Phone: [facility] 10-25-2022 10:07-0500 Diastolic blood pressure 82 mm[Hg] Alex Cornell APRN.GRADE TEACHER Work Phone: [facility] 10-25-2022 10:07-0500 Heart rate 88 /min Alex Cornell APRN.GRADE TEACHER Work Phone: [facility] 10-25-2022 10:07-0500 Respiratory rate 16 /min Alex Cornell BACK FILLER OPERATOR.GRADE TEACHER Work Phone: [facility] 10-25-2022 10:07-0500 SaO2% (BldA) [Mass fraction] 98 % Alex Cornell BACK FILLER OPERATOR.GRADE TEACHER Work Phone: [facility] 10-25-2022 10:07-0500 Systolic blood pressure 122 mm[Hg] Alex Cornell BACK FILLER OPERATOR.GRADE TEACHER Work Phone: [facility] 10-07-2022 09:02-0500 Body height 157.5 cm Rodri Mosqueda MD Work Phone: [facility] 10-07-2022 09:02-0500 Body temperature 97.11 [degF] Rodri Mosqueda MD Work Phone: [facility] 10-07-2022 09:02-0500 Body weight 74.84 kg Rordi Mosqueda MD Work Phone: [facility] 10-07-2022 09:02-0500 Diastolic blood pressure 80 mm[Hg] Rodri Mosqueda MD Work Phone: [facility] 10-07-2022 09:02-0500 Heart rate 81 /min Rodri Mosqueda MD Work Phone: [facility] 10-07-2022 09:02-0500 Respiratory rate 14 /min Rodri Mosqueda MD Work Phone: [facility] 10-07-2022 09:02-0500 SaO2% (BldA) [Mass fraction] 98 % Rodri Mosqueda MD Work Phone: [facility] 10-07-2022 09:02-0500 Systolic blood pressure 120 mm[Hg] Rodri Mosqueda MD Work Phone: [facility] 08-28-2022 17:26-0500 Body temperature 97.81 [degF] Cj Fuller BACK FILLER OPERATOR.GRADE TEACHER Work Phone: [facility] 08-28-2022 17:26-0500 Body weight 76.48 kg Cj Fuller BACK FILLER OPERATOR.GRADE TEACHER Work Phone: [facility] 08-28-2022 17:26-0500 Diastolic blood pressure 74 mm[Hg] [facility] BACK FILLER OPERATOR.GRADE TEACHER Work Phone: [facility] 08-28-2022 17:26-0500 Heart rate 97 /min [facility] BACK FILLER OPERATOR.GRADE TEACHER Work Phone: [facility] 08-28-2022 17:26-0500 Respiratory rate 16 /min [facility] BACK FILLER OPERATOR.GRADE TEACHER Work Phone: [facility] 08-28-2022 17:26-0500 SaO2% (BldA) [Mass fraction] 97 % Cj Packkeyalisson BACK FILLER OPERATOR.GRADE TEACHER Work Phone: [facility] 08-28-2022 17:26-0500 Systolic blood pressure 128 mm[Hg] [facility] BACK FILLER OPERATOR.GRADE TEACHER Work Phone: [facility] 08-20-2022 08:13-0500 Body height 157.5 cm Payal Valadez BACK FILLER OPERATOR.GRADE TEACHER Work Phone: [facility] 08-20-2022 08:13-0500 Body temperature 97.3 [degF] Payal Valadez BACK FILLER OPERATOR.GRADE TEACHER Work Phone: [facility] 08-20-2022 08:13-0500 Body weight 76.66 kg Payal Valadez BACK FILLER OPERATOR.GRADE TEACHER Work Phone: [facility] 08-20-2022 08:13-0500 Diastolic blood pressure 70 mm[Hg] Payal Valadez BACK FILLER OPERATOR.GRADE TEACHER Work Phone: [facility] 08-20-2022 08:13-0500 Heart rate 90 /min Payal Valadez BACK FILLER OPERATOR.GRADE TEACHER Work Phone: [facility] 08-20-2022 08:13-0500 Respiratory rate 14 /min Payal Valadez BACK FILLER OPERATOR.GRADE TEACHER Work Phone: [facility] 08-20-2022 08:13-0500 SaO2% (BldA) [Mass fraction] 99 % Payal Valadez BACK FILLER OPERATOR.GRADE TEACHER Work Phone: [facility] 08-20-2022 08:13-0500 Systolic blood pressure 112 mm[Hg] Payal Valadez BACK FILLER OPERATOR.GRADE TEACHER Work Phone: [facility] 07-23-2022 08:39-0500 Body height 157.5 cm Payal Valadez APRN.GRADE TEACHER Work Phone: [facility] 07-23-2022 08:39-0500 Body temperature 97.11 [degF] Payal Valadez BACK FILLER OPERATOR.GRADE TEACHER Work Phone: [facility] 07-23-2022 08:39-0500 Body weight 76.84 kg Payal Valadez APRN.GRADE TEACHER Work Phone: [facility] 07-23-2022 08:39-0500 Diastolic blood pressure 86 mm[Hg] Payal Valadez BACK FILLER OPERATOR.GRADE TEACHER Work Phone: [facility] 07-23-2022 08:39-0500 Heart rate 96 /min Payal Valadez BACK FILLER OPERATOR.GRADE TEACHER Work Phone: [facility] 07-23-2022 08:39-0500 Respiratory rate 14 /min Payal Valadez BACK FILLER OPERATOR.GRADE TEACHER Work Phone: [facility] 07-23-2022 08:39-0500 SaO2% (BldA) [Mass fraction] 98 % Payal Valadez BACK FILLER OPERATOR.GRADE TEACHER Work Phone: [facility] 07-23-2022 08:39-0500 Systolic blood pressure 134 mm[Hg] Payal Valadez APRN.GRADE TEACHER Work Phone: [facility] 03-06-2022 11:11-0400 Body temperature 97.9 [degF] Natasha Bunn APRN.GRADE TEACHER Work Phone: [facility] 03-06-2022 11:11-0400 Body weight 75.84 kg Natasha Bunn APRN.GRADE TEACHER Work Phone: [facility] 03-06-2022 11:11-0400 Diastolic blood pressure 82 mm[Hg] Natasha Bunn APRN.GRADE TEACHER Work Phone: [facility] 03-06-2022 11:11-0400 Heart rate 98 /min Natasha Bunn APRN.GRADE TEACHER Work Phone: [facility] 03-06-2022 11:11-0400 Respiratory rate 18 /min Natasha Bunn APRN.GRADE TEACHER Work Phone: [facility] 03-06-2022 11:11-0400 SaO2% (BldA) [Mass fraction] 97 % Natasha Bunn APRN.GRADE TEACHER Work Phone: [facility] 03-06-2022 11:11-0400 Systolic blood pressure 142 mm[Hg] Natasha Bunn APRN.GRADE TEACHER Work Phone: [facility] Encounters Encounter Date Encounter Type Care Provider Facility Start: 10-14-2023 Telephone encounter Rodri Mosqueda MD Work Phone: [facility] Primary [facility] Procedures Date Procedure Procedure Detail Performing Clinician Start: 10-13-2023 Lipid 1996 panel - S chanel or Plasma Rodri Mosqueda MD Work Phone: Start: 08-13-2023 Urnls dip stick/tabl et rgnt auto w/o microscopy Trang Sharma APRN.GRADE TEACHER Work Phone: Start: 04-29-2023 Lipid 1996 panel - S chanel or Plasma Soraida Dodson PA-C Work Phone: Start: 11-04-2022 Urnls dip stick/tabl et rgnt auto w/o microscopy Rodri Mosqueda MD Work Phone: Start: 11-04-2022 Mammography Rodri louis MD Work Phone: Start: 10-25-2022 Urnls dip stick/tabl et rgnt auto w/o microscopy Natasha Bunn APRN.GRADE TEACHER Work Phone: Start: 08-28-2022 Culture bacterial qu anttative colony count urine Cj Fuller BACK FILLER OPERATOR.GRADE TEACHER Work Phone: Start: 08-28-2022 Urnls dip stick/tabl et rgnt auto w/o microscopy Cj Fuller BACK FILLER OPERATOR.GRADE TEACHER Work Phone: Start: 01-08-2020 Prosthetic unicompar tmental arthroplasty of left knee DR NEHA MOSQUERA MD Start: 12-24-2017 Colonoscopy Rodri louis MD Work Phone: Start: 09-06-[address] NEHA MOSQUERA MD Start: 05-02-2007 Colonoscopy Natasha Bunn BACK FILLER OPERATOR.GRADE TEACHER Work Phone: Decompression of median nerve DR NEHA MOSQUERA MD Plan of Treatment Date Care Activity Detail Author Start: 04-12-2033 Urine microalbumin profile [facility] Start: 10-13-2028 Lipid panel Lipid Screening [facility] Start: 04-29-2028 Lipid 1996 panel - S chanel or Plasma Lipid Screening [facility] Start: 04-29-2028 Lipid panel Lipid Screening [facility] Start: 10-21-2027 LIPID SCREEN LIPID SCREEN [facility] Start: 03-05-2027 LIPID SCREEN LIPID SCREEN [facility] Start: 10-13-2026 Diabetes Screening Diabetes Screenin g [facility] Start: 04-29-2026 Diabetes Screening Diabetes Screenin g [facility] Start: 10-21-2025 DIABETES SCREEN DIABETES SCREEN [facility] Start: 03-05-2025 DIABETES SCREEN DIABETES SCREEN [facility] Start: 10-13-2024 Annual PCP Team Advertising Account Manager augustine Disease Visit Annual PCP Team Chronic Disease Visit [facility] Start: 04-12-2024 ANNUAL PCP TEAM CLEANERS AUGUSTINE DISEASE VISIT ANNUAL PCP TEAM CHRONIC DISEASE VISIT [facility] Start: 04-12-2024 BP CONTROLLED (<130/80) BP CON TROLLED (<130/80) [facility] Start: 03-03-2024 ANNUAL PCP TEAM CLEANERS AUGUSTINE DISEASE VISIT ANNUAL PCP TEAM CHRONIC DISEASE VISIT [facility] Start: 03-03-2024 BP CONTROLLED (<130/80) BP CON TROLLED (<130/80) [facility] Start: 11-05-2023 ANNUAL PCP TEAM CLEANERS AUGUSTINE DISEASE VISIT ANNUAL PCP TEAM CHRONIC DISEASE VISIT [facility] Start: 11-05-2023 Mammography [facility] Start: 11-05-2023 Screening for malign ant neoplasm of breast Mammogram Screening [facility] Start: 10-13-2023 End: 01-12-2024 Nuclear Ab [Presence] in Serum by Immunoassay [facility] Work Phone: Immunizations Immunization Date Immunization Notes Care Provider Matias magallanes 07-25-2023 influenza vaccine qs 60 mcg, Patients 6 months to 64 years, (FLULAVAL QUAD [id number], PF,) 60 mcg (15 mcg x 4)/0.5 mL injection Rodri Mosqueda MD Work Phone: [facility] Payers Date Payer Category Payer Unknown [facility] P[facility] [employer] [id number] 2021-Present [phone] [address] [place] [address] PPO [id number] 2021 Unknown [id number] 2021 Unknown [facility] PPO [employer] [id number] 2021-Present [phone] [address] [place] [address] PPO [id number] 1959 Unknown [id number] Social History Date Type Detail Facility Start: 01-04-2020 End: 10-07-2022 Tobacco smoking status NHIS Never smoked tobacco [facility] Start: 03-06-2022 End: 10-13-2023 Alcohol intake Current non-drinker of alcohol (finding) [facility] Start: 1960 Sex Assigned At Not on file [facility] Start: 02-23-2022 End: 07-23-2022 Exposure to SARS-CoV-2 (event) Not sure [facility] Start: 1960 Sex Assigned At Female [facility] Start: 03-06-2022 End: 10-07-2022 Tobacco use and exposure Smokeless tobacco non-user [facility] History of tobacco use Passive smoker [facility] Start: 10-07-2022 Education 13 [facility] Start: 03-03-2023 End: 04-12-2023 History of Social function [facility] Work Phone: Start: 03-03-2023 End: 04-12-2023 Tobacco use panel [facility] Work Phone: Adult Depression Screening Assessment 1 [facility] Work Phone: Start: 07-21-2022 Gender identity Identifies as female gender (finding) [facility] Start: 07-21-2022 Sexual orientation Heterosexual (finding) [facility] Do you belong to any clubs or organizations such as jain groups, [employer], [employer] or athletic groups, or school groups? No [facility] Are you now , , , , never or living with a partner? [facility] How often to you hav e a drink containing alcohol? Never [facility] Do you feel stress - tense, restless, nervous, or anxious, or unable to sleep at night because your mind is troubled all the time - these days [OSQ] Very much [facility] (I/We) worried wheth er (my/our) food would run out before (I/we) got money to buy more. Never true [facility] Clinical Notes 03-06-2022 to 10-14-2023 Telephone Encounter - Lesa Grigsby MA - 10/14/2023 1:56 PM Rodri Torrez MD - 10/13/2023 10:04 AM Rosio Khan LPN - 10/13/2023 8:55 AM ESTPatient Instructions Note Date & Type Note Facility 10-14-2023 Miscellaneous Notes Rheumatology referral faxed to Dr Benton Fax confirmation received. Patient given office contact info documented in this encounter [facility] 10-13-2023 Note HNO ID: [id number] Author: RODRI MOSQUEDA MD Service: ? Author Type: Physician Type: Progress Notes Filed: 10/13/2023 10:07 Note Text: This note was created using Manifactriter. Subjective Ingrid Choe is a 63 year old female. She presents today for follow-up for multiple medical problems. See list. Her chronic medical problems been stable. Her blood pressure is under good control on her current regimen. After her last visit she did take a Medrol Dosepak for treatment of her myalgias. Her myalgias and joint pain both resolved while on the Medrol Dosepak. They quickly returned once she was finished with it. She tried going off of her Crestor for a month and symptoms did not improve much. She has had some mild improvement with increasing her coenzyme every 10 to 200 mg daily. She continues to have joint swelling in her hands and wrist. She also has pain in her hips and shoulders and knees. Review of Systems Constitutional: Negative. HENT: Negative. Eyes: Negative. Respiratory: Negative. Cardiovascular: Negative. Gastrointestinal: Negative. Endocrine: Negative. Genitourinary: Negative. Musculoskeletal: Negative. Skin: Negative. Allergic/Immunologic: Negative. Neurological: Negative. Hematological: Negative. Psychiatric/Behavioral: Negative. Objective BP 132/84 (BP Site: Left Arm, BP Position: Sitting, BP Cuff Size: Regular Adult) Pulse 78 Temp 36.4 ?C (97.6 ?F) (Temporal) Resp 18 Ht 157.5 cm (5' 2 ) Wt 76.2 kg (168 lb) SpO2 96% BMI 30.73 kg/m? Physical Exam Vitals reviewed. Constitutional: Appearance: Normal appearance. HENT: Head: Normocephalic and atraumatic. Nose: Nose normal. Eyes: Extraocular Movements: Extraocular movements intact. Pupils: Pupils are equal, round, and reactive to light. Cardiovascular: Rate and Rhythm: Normal rate and regular rhythm. Pulmonary: Effort: Pulmonary effort is normal. Breath sounds: Normal breath sounds. Abdominal: General: Bowel sounds are normal. Palpations: Abdomen is soft. Musculoskeletal: General: Normal range of motion. Cervical back: Normal range of motion and neck supple. Skin: General: Skin is warm and dry. Capillary Refill: Capillary refill takes less than 2 seconds. Neurological: General: No focal deficit present. Mental Status: She is alert and oriented to person, place, and time. Mental status is at baseline. Psychiatric: Mood and Affect: Mood normal. Behavior: Behavior normal. Assessment and Plan Encounter Diagnosis ICD-10-CM 1. Hypertension, essential I10 COMP METABOLIC PANEL 2. Arthralgia of multiple joints M25.50 SED RATE WESTERGREN JODIE BLOOD RHEUMATOID FACTOR BL CONSULT TO RHEUM/IMMUN DISEASE 3. Pure hypercholesterolemia E78.00 COMP METABOLIC PANEL LIPID PANEL BASIC 4. Polyarthritis M13.0 Check labs as above. Continue present medications. Consult to rheumatology for continued polyarthritis symptoms. Rodri Mosqueda MD [facility] 10-13-2023 Note HNO ID: [id number] Author: ROSIO ANDERSON LPN Service: ? Author Type: LICENSED NURSE Type: Progress Notes Filed: 10/13/2023 10:07 Note Text: Patient is in office today for 6 month exam. Patient was last seen in office for complaint of Myalgias on 08-16-2023. Patient was advised: Check labs as above. Treat with Medrol Dosepak. Increase CoQ 10 dose to 200 mg daily. If no improvement in symptoms. Hold Crestor for 3 weeks. Monitor for improvement of symptoms. Follow-up as needed. Patient states she did start taking Crestor after 3 weeks, and could not really tell a different in symptoms. Patient states that Medrol Dosepak did help. Rosio Anderson LPN October 13, 2023 9:04 AM [facility] 10-13-2023 History of Present illness Narrative This note was created using Manifactriter. Subjective Ingrid Choe is a 63 year old female. She presents today for follow-up for multiple medical problems. See list. Her chronic medical problems been stable. Her blood pressure is under good control on her current regimen. After her last visit she did take a Medrol Dosepak for treatment of her myalgias. Her myalgias and joint pain both resolved while on the Medrol Dosepak. They quickly returned once she was finished with it. She tried going off of her Crestor for a month and symptoms did not improve much. She has had some mild improvement with increasing her coenzyme every 10 to 200 mg daily. She continues to have joint swelling in her hands and wrist. She also has pain in her hips and shoulders and knees. Review of Systems Constitutional: Negative. HENT: Negative. Eyes: Negative. Respiratory: Negative. Cardiovascular: Negative. Gastrointestinal: Negative. Endocrine: Negative. Genitourinary: Negative. Musculoskeletal: Negative. Skin: Negative. Allergic/Immunologic: Negative. Neurological: Negative. Hematological: Negative. Psychiatric/Behavioral: Negative. Objective BP 132/84 (BP Site: Left Arm, BP Position: Sitting, BP Cuff Size: Regular Adult) Pulse 78 Temp 36.4 C (97.6 F) (Temporal) Resp 18 Ht 157.5 cm (5' 2 ) Wt 76.2 kg (168 lb) SpO2 96% BMI 30.73 kg/m Physical Exam Vitals reviewed. Constitutional: Appearance: Normal appearance. HENT: Head: Normocephalic and atraumatic. Nose: Nose normal. Eyes: Extraocular Movements: Extraocular movements intact. Pupils: Pupils are equal, round, and reactive to light. Cardiovascular: Rate and Rhythm: Normal rate and regular rhythm. Pulmonary: Effort: Pulmonary effort is normal. Breath sounds: Normal breath sounds. Abdominal: General: Bowel sounds are normal. Palpations: Abdomen is soft. Musculoskeletal: General: Normal range of motion. Cervical back: Normal range of motion and neck supple. Skin: General: Skin is warm and dry. Capillary Refill: Capillary refill takes less than 2 seconds. Neurological: General: No focal deficit present. Mental Status: She is alert and oriented to person, place, and time. Mental status is at baseline. Psychiatric: Mood and Affect: Mood normal. Behavior: Behavior normal. Assessment and Plan Encounter Diagnosis ICD-10-CM 1. Hypertension, essential I10 COMP METABOLIC PANEL 2. Arthralgia of multiple joints M25.50 SED RATE WESTERGREN JODIE BLOOD RHEUMATOID FACTOR BL CONSULT TO RHEUM/IMMUN DISEASE 3. Pure hypercholesterolemia E78.00 COMP METABOLIC PANEL LIPID PANEL BASIC 4. Polyarthritis M13.0 Check labs as above. Continue present medications. Consult to rheumatology for continued polyarthritis symptoms. Rodri G Jaylin, MD Patient is in office today for 6 month exam. Patient was last seen in office for complaint of Myalgias on 08-16-2023. Patient was advised: Check labs as above. Treat with Medrol Dosepak. Increase CoQ 10 dose to 200 mg daily. If no improvement in symptoms. Hold Crestor for 3 weeks. Monitor for improvement of symptoms. Follow-up as needed. Patient states she did start taking Crestor after 3 weeks, and could not really tell a different in symptoms. Patient states that Medrol Dosepak did help. Rosio Anderson LPN October 13, 2023 9:04 AM documented in this encounter [facility] 08-16-2023 Note HNO ID: [id number] Author: Rodri Mosqueda MD Service: ? Author Type: Physician Type: Progress Notes Filed: 08/16/2023 8:44 AM Note Text: This note was created using GoGuide. Subjective Ingrid Choe is a 63 year old female.Patient in the office today with concerns with all over muscle aches. Patient states symptoms present x 4 months. Patient is currently on an antibiotic for a UTI. OTC Tylenol minimal helps. Patient states she is currently taking 10 mg daily of Crestor. Review of Systems Constitutional: Negative. HENT: Negative. Eyes: Negative. Respiratory: Negative. Cardiovascular: Negative. Gastrointestinal: Negative. Endocrine: Negative. Genitourinary: Negative. Musculoskeletal: Positive for arthralgias and myalgias. Skin: Negative. Allergic/Immunologic: Negative. Neurological: Negative. Hematological: Negative. Psychiatric/Behavioral: Negative. Objective BP 128/74 (BP Site: Left Arm, BP Position: Sitting, BP Cuff Size: Large Adult) Pulse 68 Temp 36.8 ?C (98.2 ?F) (Temporal) Resp 16 Ht 157.5 cm (5' 2 ) Wt 76.4 kg (168 lb 6 oz) BMI 30.80 kg/m? Physical Exam Vitals reviewed. Constitutional: Appearance: Normal appearance. HENT: Head: Normocephalic and atraumatic. Nose: Nose normal. Eyes: Extraocular Movements: Extraocular movements intact. Pupils: Pupils are equal, round, and reactive to light. Cardiovascular: Rate and Rhythm: Normal rate and regular rhythm. Pulmonary: Effort: Pulmonary effort is normal. Breath sounds: Normal breath sounds. Abdominal: General: Bowel sounds are normal. Palpations: Abdomen is soft. Musculoskeletal: General: Normal range of motion. Cervical back: Normal range of motion and neck supple. Skin: General: Skin is warm and dry. Capillary Refill: Capillary refill takes less than 2 seconds. Neurological: General: No focal deficit present. Mental Status: She is alert and oriented to person, place, and time. Mental status is at baseline. Psychiatric: Mood and Affect: Mood normal. Behavior: Behavior normal. Assessment and Plan Encounter Diagnosis ICD-10-CM 1. Myalgias M79.10 SED RATE WESTERGREN C-REACTIVE PROTEIN (CRP) 2. Arthralgia of multiple joints M25.50 Check labs as above. Treat with Medrol Dosepak. Increase CoQ 10 dose to 200 mg daily. If no improvement in symptoms. Hold Crestor for 3 weeks. Monitor for improvement of symptoms. Follow-up as needed. Rodri Mosqueda MD [facility] 08-16-2023 Note HNO ID: [id number] Author: Kimberly Gonzalez LPN Service: ? Author Type: LICENSED NURSE Type: Progress Notes Filed: 08/16/2023 8:44 AM Note Text: Patient in the office today with concerns with all over body aches. Patient states symptoms present x 4 months. Patient is currently on an antibiotic for a UTI. OTC Tylenol minimal helps. Patient states she is currently taking 10 mg daily of Crestor. No refills needed today. Kimberly Gonzalez LPN August 16, 2023 8:11 AM [facility] 08-13-2023 Note HNO ID: [id number] Author: Soraida Dodson PA-C Service: ? Author Type: Physician Nail Kegger Type: Progress Notes Filed: 08/13/2023 1:12 PM Note Text: This note was created using NoteWriter. Kerwin Choe is a 63 year old female. HPI Presents with a chief complaint of dysuria and frequency for 3 days. No blood in urine. No abdominal pain or back pain. No fever. No nausea or vomiting. No vaginal itching or discharge. States she has had a history of UTIs previously and this feels similar. Review of Systems Constitutional: Negative. HENT: Negative. Respiratory: Negative. Cardiovascular: Negative. Gastrointestinal: Negative. Genitourinary: Positive for dysuria, frequency and urgency. Negative for hematuria and pelvic pain. Musculoskeletal: Negative. All other systems reviewed and are negative. PAST MEDICAL HISTORY Diagnosis Date Malignant neoplasm of breast (female), unspecified site Other and unspecified hyperlipidemia Current Outpatient Medications Medication Sig Dispense Refill Coenzyme T09-[id number] E 100-5 mg-unit cap Take by mouth. rosuvastatin (CRESTOR) 20 mg tablet Take 1 tablet by mouth once daily. (Patient taking differently: Take 10 mg by mouth once daily.) 90 tablet 3 amLODIPine (NORVASC) 5 mg tablet Take 1 tablet by mouth once daily. 90 tablet 3 coenzyme Q10 (COENZYME Q-10) 100 mg cap capsule Take by mouth. multivitamin tablet Take by mouth. cholecalciferol (VITAMIN D3) 1,000 unit tab tablet Take 25 mcg by mouth. calcium carbonate (OS-FLACO 500) 500 mg calcium (1,250 mg) tablet Take 650 mg by mouth. nitrofurantoin monohydrate and macrocrystal (MACROBID) 100 mg capsule Take 1 capsule by mouth two times a day with meals for 5 days. 10 capsule 0 meloxicam (MOBIC) 15 mg tablet (Patient not taking: Reported on 08/13/2023) famotidine (PEPCID) 20 mg tablet (Patient not taking: Reported on 08/13/2023) No current facility-administered medications for this visit. PAST SURGICAL HISTORY Procedure Laterality Date BX BREAST PERC VACUUM/ROTN 06/08/2008 Left - Negative COLONOSCOPY FLX DX W/COLLJ SPEC WHEN PFRMD 05/02/2007 Normal Colonoscopy LUMPECTOMY/RADIOTHERAPY DIAG MAMM/A10 MAMMO STEREOTACTIC CORE BIOPSY LT PAST SURGICAL HISTORY OF 09/06/1993 tubaligatiopn SUPRACERVICAL ABDL HYSTER W/WO RMVL TUBE OVARY TOTAL KNEE REPLACEMENT Right FAMILY HISTORY Problem Relation Age of Onset Diabetes Father Diabetes Sister Heart Father Stroke Father GI Mother Social History Tobacco Use Smoking status: Never Passive exposure: Past Smokeless tobacco: Never Vaping Use Vaping Use: Never used Substance Use Topics Alcohol use: No Drug use: No Objective BP 125/81 Pulse 85 Temp (!) 35.8 ?C (96.4 ?F) Resp 20 Wt 77.1 kg (170 lb) SpO2 98% BMI (P) 31.09 kg/m? Physical Exam Vitals reviewed. Constitutional: Appearance: Normal appearance. HENT: Head: Normocephalic and atraumatic. Cardiovascular: Rate and Rhythm: Normal rate and regular rhythm. Heart sounds: Normal heart sounds. Pulmonary: Effort: Pulmonary effort is normal. Breath sounds: Normal breath sounds. Abdominal: General: Abdomen is flat. Palpations: Abdomen is soft. Tenderness: There is no abdominal tenderness. There is no right CVA tenderness, left CVA tenderness or guarding. Musculoskeletal: Cervical back: Neck supple. Skin: General: Skin is warm and dry. Neurological: Mental Status: She is alert. Assessment and Plan ASSESSMENT/PLAN: 1. Burning with urination - ICD9: 788.1, ICD10: R30.0 acute - UA positive for cameron esterase and hematuria - Send urine for culture - Begin treatment with Macrobid 100 mg BID for 5 days - UA DIP, URINE (POC) - URINE CULTURE Soraida Dodson PA-C [facility] 08-13-2023 History of Present illness Narrative This note was created using Manifactriter. Subjective Ingrid Choe is a 63 year old female. HPI Presents with a chief complaint of dysuria and frequency for 3 days. No blood in urine. No abdominal pain or back pain. No fever. No nausea or vomiting. No vaginal itching or discharge. States she has had a history of UTIs previously and this feels similar. Review of Systems Constitutional: Negative. HENT: Negative. Respiratory: Negative. Cardiovascular: Negative. Gastrointestinal: Negative. Genitourinary: Positive for dysuria, frequency and urgency. Negative for hematuria and pelvic pain. Musculoskeletal: Negative. All other systems reviewed and are negative. PAST MEDICAL HISTORY Diagnosis Date Malignant neoplasm of breast (female), unspecified site Other and unspecified hyperlipidemia Current Outpatient Medications Medication Sig Dispense Refill Coenzyme G25-Enlndvj E 100-5 mg-unit cap Take by mouth. rosuvastatin (CRESTOR) 20 mg tablet Take 1 tablet by mouth once daily. (Patient taking differently: Take 10 mg by mouth once daily.) 90 tablet 3 amLODIPine (NORVASC) 5 mg tablet Take 1 tablet by mouth once daily. 90 tablet 3 coenzyme Q10 (COENZYME Q-10) 100 mg cap capsule Take by mouth. multivitamin tablet Take by mouth. cholecalciferol (VITAMIN D3) 1,000 unit tab tablet Take 25 mcg by mouth. calcium carbonate (OS-FLACO 500) 500 mg calcium (1,250 mg) tablet Take 650 mg by mouth. nitrofurantoin monohydrate and macrocrystal (MACROBID) 100 mg capsule Take 1 capsule by mouth two times a day with meals for 5 days. 10 capsule 0 meloxicam (MOBIC) 15 mg tablet (Patient not taking: Reported on 08/13/2023) famotidine (PEPCID) 20 mg tablet (Patient not taking: Reported on 08/13/2023) No current facility-administered medications for this visit. PAST SURGICAL HISTORY Procedure Laterality Date BX BREAST PERC VACUUM/ROTN 06/08/2008 Left - Negative COLONOSCOPY FLX DX W/COLLJ SPEC WHEN PFRMD 05/02/2007 Normal Colonoscopy LUMPECTOMY/RADIOTHERAPY DIAG MAMM/A10 MAMMO STEREOTACTIC CORE BIOPSY LT PAST SURGICAL HISTORY OF 09/06/1993 tubaligatiopn SUPRACERVICAL ABDL HYSTER W/WO RMVL TUBE OVARY TOTAL KNEE REPLACEMENT Right FAMILY HISTORY Problem Relation Age of Onset Diabetes Father Diabetes Sister Heart Father Stroke Father GI Mother Social History Tobacco Use Smoking status: Never Passive exposure: Past Smokeless tobacco: Never Vaping Use Vaping Use: Never used Substance Use Topics Alcohol use: No Drug use: No Objective BP 125/81 Pulse 85 Temp (!) 35.8 C (96.4 F) Resp 20 Wt 77.1 kg (170 lb) SpO2 98% BMI (P) 31.09 kg/m Physical Exam Vitals reviewed. Constitutional: Appearance: Normal appearance. HENT: Head: Normocephalic and atraumatic. Cardiovascular: Rate and Rhythm: Normal rate and regular rhythm. Heart sounds: Normal heart sounds. Pulmonary: Effort: Pulmonary effort is normal. Breath sounds: Normal breath sounds. Abdominal: General: Abdomen is flat. Palpations: Abdomen is soft. Tenderness: There is no abdominal tenderness. There is no right CVA tenderness, left CVA tenderness or guarding. Musculoskeletal: Cervical back: Neck supple. Skin: General: Skin is warm and dry. Neurological: Mental Status: She is alert. Assessment and Plan ASSESSMENT/PLAN: 1. Burning with urination - ICD9: 788.1, ICD10: R30.0 acute - UA positive for cameron esterase and hematuria - Send urine for culture - Begin treatment with Macrobid 100 mg BID for 5 days - UA DIP, URINE (POC) - URINE CULTURE Soraida Dodson PA-C documented in this encounter [facility] 04-12-2023 Note HNO ID: [id number] Author: Rodri Mosqueda MD Service: ? Author Type: Physician Type: Progress Notes Filed: 04/18/2023 9:21 PM Note Text: This note was created using [employer]. Subjective Ingrid Choe is a 63 year old female. Angi presents today for her annual wellness visit. Review of Systems Constitutional: Negative. HENT: Negative. Eyes: Negative. Respiratory: Negative. Cardiovascular: Negative. Gastrointestinal: Negative. Endocrine: Negative. Genitourinary: Negative. Musculoskeletal: Negative. Skin: Negative. Allergic/Immunologic: Negative. Neurological: Negative. Hematological: Negative. Psychiatric/Behavioral: Negative. Objective BP (P) 126/76 (BP Site: Left Arm, BP Position: Sitting, BP Cuff Size: Large Adult) Pulse (P) 91 Temp (P) 36.8 ?C (98.2 ?F) (Temporal) Resp (P) 16 Ht (P) 157.5 cm (5' 2 ) Wt (P) 76.8 kg (169 lb 6 oz) SpO2 (P) 97% BMI (P) 30.98 kg/m? Physical Exam Vitals reviewed. Constitutional: Appearance: Normal appearance. HENT: Head: Normocephalic and atraumatic. Nose: Nose normal. Eyes: Extraocular Movements: Extraocular movements intact. Pupils: Pupils are equal, round, and reactive to light. Cardiovascular: Rate and Rhythm: Normal rate and regular rhythm. Pulmonary: Effort: Pulmonary effort is normal. Breath sounds: Normal breath sounds. Abdominal: General: Bowel sounds are normal. Palpations: Abdomen is soft. Musculoskeletal: General: Normal range of motion. Cervical back: Normal range of motion and neck supple. Skin: General: Skin is warm and dry. Capillary Refill: Capillary refill takes less than 2 seconds. Neurological: General: No focal deficit present. Mental Status: She is alert and oriented to person, place, and time. Mental status is at baseline. Psychiatric: Mood and Affect: Mood normal. Behavior: Behavior normal. Assessment and Plan Encounter Diagnosis ICD-10-CM 1. Wellness examination Z00.00 2. Encounter for immunization Z23 TDAP VACCINE, AGE 7+ YR (ADACEL, BOOSTRIX) 3. Lipid screening Z13.220 4. Screening for deficiency anemia Z13.0 CBC + DIFF 5. Pure hypercholesterolemia E78.00 COMP METABOLIC PANEL LIPID PANEL BASIC 6. Hypertension, essential I10 COMP METABOLIC PANEL All open preventative health maintenance topics discussed with patient in detail. This includes risks and benefits regarding vaccines, cancer screening, healthy life style, and diet. Rodri Mosqueda MD [facility] 04-12-2023 Note HNO ID: [id number] Author: Kimberly Gonzalez LPN Service: ? Author Type: LICENSED NURSE Type: Progress Notes Filed: 04/18/2023 9:21 PM Note Text: Patient in office today for an annual wellness exam. No refills needed today. Patient refused breast exam but agreed to skin exam. DUE HEALTH MAINTENANCE HEPATITIS C SCREENING refused HIV SCREENING refused HPV TESTING refused MAMMOGRAM [facility] spring completed COLORECTAL CANCER completed and next due on 2024 PAP TESTING refused SHINGRIX VACCINE(1 of 2) Completed last year at COVID-19 VACCINE(4 - Pfizer series) DTAP,TDAP,TD(2 - Td or Tdap done Kimberly Gonzalez LPN April 12, 2023 10:17 AM Tdap administered as ordered in L deltoid and without issues. Patient tolerated well, and denied pain or discomfort. Information sheet provided to patient on Tdap. Kimberly Gonzalez LPN April 12, 2023 10:54 AM [facility] 04-12-2023 History of Present illness Narrative This note was created using Manifactriter. Subjective Ingrid Choe is a 63 year old female. Angi presents today for her annual wellness visit. Review of Systems Constitutional: Negative. HENT: Negative. Eyes: Negative. Respiratory: Negative. Cardiovascular: Negative. Gastrointestinal: Negative. Endocrine: Negative. Genitourinary: Negative. Musculoskeletal: Negative. Skin: Negative. Allergic/Immunologic: Negative. Neurological: Negative. Hematological: Negative. Psychiatric/Behavioral: Negative. Objective BP (P) 126/76 (BP Site: Left Arm, BP Position: Sitting, BP Cuff Size: Large Adult) Pulse (P) 91 Temp (P) 36.8 C (98.2 F) (Temporal) Resp (P) 16 Ht (P) 157.5 cm (5' 2 ) Wt (P) 76.8 kg (169 lb 6 oz) SpO2 (P) 97% BMI (P) 30.98 kg/m Physical Exam Vitals reviewed. Constitutional: Appearance: Normal appearance. HENT: Head: Normocephalic and atraumatic. Nose: Nose normal. Eyes: Extraocular Movements: Extraocular movements intact. Pupils: Pupils are equal, round, and reactive to light. Cardiovascular: Rate and Rhythm: Normal rate and regular rhythm. Pulmonary: Effort: Pulmonary effort is normal. Breath sounds: Normal breath sounds. Abdominal: General: Bowel sounds are normal. Palpations: Abdomen is soft. Musculoskeletal: General: Normal range of motion. Cervical back: Normal range of motion and neck supple. Skin: General: Skin is warm and dry. Capillary Refill: Capillary refill takes less than 2 seconds. Neurological: General: No focal deficit present. Mental Status: She is alert and oriented to person, place, and time. Mental status is at baseline. Psychiatric: Mood and Affect: Mood normal. Behavior: Behavior normal. Assessment and Plan Encounter Diagnosis ICD-10-CM 1. Wellness examination Z00.00 2. Encounter for immunization Z23 TDAP VACCINE, AGE 7+ YR (ADACEL, BOOSTRIX) 3. Lipid screening Z13.220 4. Screening for deficiency anemia Z13.0 CBC + DIFF 5. Pure hypercholesterolemia E78.00 COMP METABOLIC PANEL LIPID PANEL BASIC 6. Hypertension, essential I10 COMP METABOLIC PANEL All open preventative health maintenance topics discussed with patient in detail. This includes risks and benefits regarding vaccines, cancer screening, healthy life style, and diet. Rodri Mosqueda MD Patient in office today for an annual wellness exam. No refills needed today. Patient refused breast exam but agreed to skin exam. DUE HEALTH MAINTENANCE HEPATITIS C SCREENING refused HIV SCREENING refused HPV TESTING refused MAMMOGRAM [facility] spring completed COLORECTAL CANCER completed and next due on 2024 PAP TESTING refused SHINGRIX VACCINE(1 of 2) Completed last year at COVID-19 VACCINE(4 - Pfizer series) DTAP,TDAP,TD(2 - Td or Tdap done Kimberly Gonzalez LPN April 12, 2023 10:17 AM Tdap administered as ordered in L deltoid and without issues. Patient tolerated well, and denied pain or discomfort. Information sheet provided to patient on Tdap. Kimberly Gonzalez LPN April 12, 2023 10:54 AM documented in this encounter [facility] 03-03-2023 Note HNO ID: [id number] Author: Rodri Mosqueda MD Service: ? Author Type: Physician Type: Progress Notes Filed: 03/03/2023 8:50 AM Note Text: This note was created using GoGuide. Subjective Ingrid Choe is a 63 year old female. Patient presents today for preop clearance for upcoming right knee replacement. She has not had any prior difficulties with anesthesia. She denies any cardiovascular, pulmonary, or neurological symptoms. Review of Systems Constitutional: Negative. HENT: Negative. Eyes: Negative. Respiratory: Negative. Cardiovascular: Negative. Gastrointestinal: Negative. Endocrine: Negative. Genitourinary: Negative. Musculoskeletal: Negative. Skin: Negative. Allergic/Immunologic: Negative. Neurological: Negative. Hematological: Negative. Psychiatric/Behavioral: Negative. Objective BP 122/76 (BP Site: Right Arm, BP Position: Sitting, BP Cuff Size: Large Adult) Pulse 96 Temp 36.1 ?C (96.9 ?F) (Temporal) Resp 16 Ht 157.5 cm (5' 2 ) Wt 76.2 kg (168 lb) SpO2 98% BMI 30.73 kg/m? Physical Exam Vitals reviewed. Constitutional: Appearance: Normal appearance. HENT: Head: Normocephalic and atraumatic. Nose: Nose normal. Eyes: Extraocular Movements: Extraocular movements intact. Pupils: Pupils are equal, round, and reactive to light. Cardiovascular: Rate and Rhythm: Normal rate and regular rhythm. Pulmonary: Effort: Pulmonary effort is normal. Breath sounds: Normal breath sounds. Abdominal: General: Bowel sounds are normal. Palpations: Abdomen is soft. Musculoskeletal: General: Normal range of motion. Cervical back: Normal range of motion and neck supple. Skin: General: Skin is warm and dry. Capillary Refill: Capillary refill takes less than 2 seconds. Neurological: General: No focal deficit present. Mental Status: She is alert and oriented to person, place, and time. Mental status is at baseline. Psychiatric: Mood and Affect: Mood normal. Behavior: Behavior normal. Assessment and Plan Encounter Diagnosis ICD-10-CM 1. Preop examination Z01.818 Patient is medically maximized for procedure. She is cleared for surgery. Rodri Mosqueda MD [facility] 03-03-2023 Note HNO ID: [id number] Author: Kimberly Gonzalez LPN Service: ? Author Type: LICENSED NURSE Type: Progress Notes Filed: 03/03/2023 8:50 AM Note Text: Patient in office today for a pre-op exam. No refills needed today. Patient complains of increased anxiety and trouble sleeping. Patient stopped the trazodone because it was ineffective. Kimberly Gonzalez LPN March 03, 2023 8:08 AM [facility] 11-04-2022 Note HNO ID: [id number] Author: Rodri Mosqueda MD Service: ? Author Type: Physician Type: Progress Notes Filed: 11/05/2022 8:19 AM Note Text: This note was created using [employer]. Subjective Ingrid Choe is a 62 year old female. Patient presents today for follow-up for UTI. She was treated with antibiotic. She is still having some mild discomfort with urination. Review of Systems Constitutional: Negative. HENT: Negative. Eyes: Negative. Respiratory: Negative. Cardiovascular: Negative. Gastrointestinal: Negative. Endocrine: Negative. Genitourinary: Negative. Musculoskeletal: Negative. Skin: Negative. Allergic/Immunologic: Negative. Neurological: Negative. Hematological: Negative. Psychiatric/Behavioral: Negative. Objective BP 124/84 (BP Site: Left Arm, BP Position: Sitting, BP Cuff Size: Large Adult) Pulse 92 Temp 36.3 ?C (97.3 ?F) (Temporal) Resp 18 Ht 157.5 cm (5' 2 ) Wt 76.4 kg (168 lb 6.4 oz) SpO2 95% BMI 30.80 kg/m? Physical Exam Vitals reviewed. Constitutional: Appearance: Normal appearance. HENT: Head: Normocephalic and atraumatic. Nose: Nose normal. Eyes: Extraocular Movements: Extraocular movements intact. Pupils: Pupils are equal, round, and reactive to light. Cardiovascular: Rate and Rhythm: Normal rate and regular rhythm. Pulmonary: Effort: Pulmonary effort is normal. Breath sounds: Normal breath sounds. Abdominal: General: Bowel sounds are normal. Palpations: Abdomen is soft. Musculoskeletal: General: Normal range of motion. Cervical back: Normal range of motion and neck supple. Skin: General: Skin is warm and dry. Capillary Refill: Capillary refill takes less than 2 seconds. Neurological: General: No focal deficit present. Mental Status: She is alert and oriented to person, place, and time. Mental status is at baseline. Psychiatric: Mood and Affect: Mood normal. Behavior: Behavior normal. Assessment and Plan Ingrid was seen today for hematuria. Diagnoses and all orders for this visit: Urinary frequency - UA DIP B/O Pure hypercholesterolemia - Discontinue: rosuvastatin (CRESTOR) 10 mg tablet; Take 1 tablet by mouth once daily. - rosuvastatin (CRESTOR) 20 mg tablet; Take 1 tablet by mouth once daily. Urinalysis was normal. UTI is resolved. Patient is advised to continue to push fluids. Additionally discussed her cholesterol level. She is in agreement to increase her Crestor to 20 mg daily. [facility] 11-04-2022 Note HNO ID: [id number] Author: Rosio Anderson LPN Service: ? Author Type: LICENSED NURSE Type: Progress Notes Filed: 11/05/2022 8:19 AM Note Text: Patient is in office today for follow up for blood in urine.. Patient was seen at Urgent Care on 10-25-2022 for urinary frequency and urgency. Patient was started on Keflex 500 mg 1 capsule by mouth twice daily for 7 days. Patient was informed that her urine culture showed no infection, but was to continue taking antibiotic if symptoms were improving. Also was informed to follow up with primary care physician if symptoms persist or become worse, and to have UA repeated in 2-4 weeks to see if hematuria is persisting. Patient stated that she is still experiencing slight symptoms of a UTI. Patient stated that her urine is dark certain times of the day, and clear other times. No refills needed at this time Rosio Anderson LPN November 04, 2022 3:32 PM [facility] 11-04-2022 History of Present illness Narrative This note was created using [employer]. Subjective Ingrid Choe is a 62 year old female. Patient presents today for follow-up for UTI. She was treated with antibiotic. She is still having some mild discomfort with urination. Review of Systems Constitutional: Negative. HENT: Negative. Eyes: Negative. Respiratory: Negative. Cardiovascular: Negative. Gastrointestinal: Negative. Endocrine: Negative. Genitourinary: Negative. Musculoskeletal: Negative. Skin: Negative. Allergic/Immunologic: Negative. Neurological: Negative. Hematological: Negative. Psychiatric/Behavioral: Negative. Objective BP 124/84 (BP Site: Left Arm, BP Position: Sitting, BP Cuff Size: Large Adult) Pulse 92 Temp 36.3 C (97.3 F) (Temporal) Resp 18 Ht 157.5 cm (5' 2 ) Wt 76.4 kg (168 lb 6.4 oz) SpO2 95% BMI 30.80 kg/m Physical Exam Vitals reviewed. Constitutional: Appearance: Normal appearance. HENT: Head: Normocephalic and atraumatic. Nose: Nose normal. Eyes: Extraocular Movements: Extraocular movements intact. Pupils: Pupils are equal, round, and reactive to light. Cardiovascular: Rate and Rhythm: Normal rate and regular rhythm. Pulmonary: Effort: Pulmonary effort is normal. Breath sounds: Normal breath sounds. Abdominal: General: Bowel sounds are normal. Palpations: Abdomen is soft. Musculoskeletal: General: Normal range of motion. Cervical back: Normal range of motion and neck supple. Skin: General: Skin is warm and dry. Capillary Refill: Capillary refill takes less than 2 seconds. Neurological: General: No focal deficit present. Mental Status: She is alert and oriented to person, place, and time. Mental status is at baseline. Psychiatric: Mood and Affect: Mood normal. Behavior: Behavior normal. Assessment and Plan Ingrid was seen today for hematuria. Diagnoses and all orders for this visit: Urinary frequency - UA DIP B/O Pure hypercholesterolemia - Discontinue: rosuvastatin (CRESTOR) 10 mg tablet; Take 1 tablet by mouth once daily. - rosuvastatin (CRESTOR) 20 mg tablet; Take 1 tablet by mouth once daily. Urinalysis was normal. UTI is resolved. Patient is advised to continue to push fluids. Additionally discussed her cholesterol level. She is in agreement to increase her Crestor to 20 mg daily. Patient is in office today for follow up for blood in urine.. Patient was seen at Urgent Care on 10-25-2022 for urinary frequency and urgency. Patient was started on Keflex 500 mg 1 capsule by mouth twice daily for 7 days. Patient was informed that her urine culture showed no infection, but was to continue taking antibiotic if symptoms were improving. Also was informed to follow up with primary care physician if symptoms persist or become worse, and to have UA repeated in 2-4 weeks to see if hematuria is persisting. Patient stated that she is still experiencing slight symptoms of a UTI. Patient stated that her urine is dark certain times of the day, and clear other times. No refills needed at this time Rosio Anderson LPN November 04, 2022 3:32 PM documented in this encounter [facility] 10-26-2022 Miscellaneous Notes Pt notified of results and provider message. Vidya Rankin LPN Please notify that the urine culture showed no infection. May continue taking the antibiotic if symptoms are improving. If symptoms persist/worsen f/u with primary care. Hematuria noted on ua, patient should have urine retested with pcp in 2-4 weeks to see if persisting. documented in this encounter [facility] 10-25-2022 Note HNO ID: [id number] Author: Alex Cornell APRN.GRADE TEACHER Service: ? Author Type: Nurse Practitioner Type: Progress Notes Filed: 10/25/2022 10:27 AM Note Text: Subjective HPI HPI Ingrid Choe is a 62 year old female who presents today for CC of urinary urgency, frequency. This started few days ago/but has been intermittent since last uti in August tx with cephalexin. .Patient presents with: UTI: Frequency in urination PAST MEDICAL HISTORY Diagnosis Date Malignant neoplasm of breast (female), unspecified site Other and unspecified hyperlipidemia PAST SURGICAL HISTORY Procedure Laterality Date BX BREAST PERC VACUUM/ROTN 06/08/2008 Left - Negative COLONOSCOPY FLX DX W/COLLJ SPEC WHEN PFRMD 05/02/2007 Normal Colonoscopy LUMPECTOMY/RADIOTHERAPY DIAG MAMM/A10 MAMMO STEREOTACTIC CORE BIOPSY LT PAST SURGICAL HISTORY OF 1993 tubaligatiopn SUPRACERVICAL ABDL HYSTER W/WO RMVL TUBE OVARY ALLERGIES Mildew, Mold, Seasonal Allergies, and Hydrocodone MEDICATIONS rosuvastatin (CRESTOR) 10 mg tablet Take 1 tablet by mouth once daily. amLODIPine (NORVASC) 5 mg tablet Take 1 tablet by mouth once daily. traZODone (DESYREL) 50 mg tablet Take 1 tablet by mouth daily at bedtime. coenzyme Q10 (COENZYME Q-10) 100 mg cap capsule Take by mouth. multivitamin tablet Take by mouth. cholecalciferol (VITAMIN D3) 1,000 unit tab tablet Take 25 mcg by mouth. calcium carbonate (OS-FLACO 500) 500 mg calcium (1,250 mg) tablet Take 650 mg by mouth. nitrofurantoin monohydrate and macrocrystal (MACROBID) 100 mg capsule Take 1 capsule by mouth twice daily for 7 days. FAMILY HISTORY Problem Relation Age of Onset Diabetes Father Diabetes Sister Heart Father Stroke Father GI Mother Social History Tobacco Use Smoking status: Never Passive exposure: Past Smokeless tobacco: Never Vaping Use Vaping Use: Never used Substance Use Topics Alcohol use: No Drug use: No Review of Systems Constitutional: Negative for chills, fever and weight loss. Respiratory: Negative for cough, shortness of breath and wheezing. Cardiovascular: Negative for chest pain and palpitations. Gastrointestinal: Negative for abdominal pain, blood in stool, constipation, diarrhea, heartburn, melena, nausea and vomiting. Genitourinary: Positive for frequency and urgency. Negative for dysuria, flank pain and hematuria. Objective Blood pressure 122/82, pulse 88, temperature 36.5 ?C (97.7 ?F), resp. rate 16, weight 76.2 kg (168 lb), SpO2 98 %. Physical Exam Constitutional: General: She is not in acute distress. Appearance: Normal appearance. She is not toxic-appearing. Cardiovascular: Rate and Rhythm: Normal rate and regular rhythm. Heart sounds: Normal heart sounds. Pulmonary: Effort: Pulmonary effort is normal. Breath sounds: Normal breath sounds. Abdominal: General: Bowel sounds are normal. Palpations: Abdomen is soft. Tenderness: There is no abdominal tenderness. Skin: General: Skin is warm and dry. ASSESSMENT/PLAN: 1. Increased urinary frequency - ICD9: 788.41, ICD10: R35.0 acute - UA positive for hematuria - Send urine for culture - Begin treatment with Macrobid 100 mg BID for 7 days - UA DIP, URINE (POC) - URINE CULTURE - NITROFURANTOIN MONOHYDRATE AND MACROCRYSTAL 100 MG ORAL CAP Alex Cornell APRN.CNP [facility] 10-25-2022 Instructions Alex Cornell APRN.CNP - 10/25/2022 10:26 AM EST Patient Education for Female Urinary Tract Infections Possible complications: Pyelonehritis Renal abscess Expected course/prognosis: * symptoms resolve within 2-3 days after starting treatment in almost all patients * one-fourth of women with simple UTI experience a second UTI within 6 months, and half at some time during lifetime. * patients with multiple recurrent UTI and no underlying urinary tract abnormality may receive long-term prophylactic antibioitic treatment. Trimethoprim-sulfamethoxazole and nitrofurantoin common used. * women with frequent or intercourse-related UTI should empty bladder immediately before and following intercourse and consider postcoital antibiotic treament Instructions: * Maintain good hydration * Avoid sexual intercourse when symptoms present *Take antibiotic as directed * Return if symptoms not resolved or markedly improved within 48 hours * Return if fever, chills, or flank pain develop * If taking prophylactic antiobiotics, take at bedtime * Take showers instead of tub baths * Avoid feminine hygiene sprays and scented douches * Wipe urethra from front to back documented in this encounter [facility] 10-25-2022 History of Present illness Narrative Subjective HPI HPI Ingrid Choe is a 62 year old female who presents today for CC of urinary urgency, frequency. This started few days ago/but has been intermittent since last uti in August tx with cephalexin. .Patient presents with: UTI: Frequency in urination PAST MEDICAL HISTORY Diagnosis Date Malignant neoplasm of breast (female), unspecified site Other and unspecified hyperlipidemia PAST SURGICAL HISTORY Procedure Laterality Date BX BREAST PERC VACUUM/ROTN 06/08/2008 Left - Negative COLONOSCOPY FLX DX W/COLLJ SPEC WHEN PFRMD 05/02/2007 Normal Colonoscopy LUMPECTOMY/RADIOTHERAPY DIAG MAMM/A10 MAMMO STEREOTACTIC CORE BIOPSY LT PAST SURGICAL HISTORY OF 1993 tubaligatiopn SUPRACERVICAL ABDL HYSTER W/WO RMVL TUBE OVARY ALLERGIES Mildew, Mold, Seasonal Allergies, and Hydrocodone MEDICATIONS rosuvastatin (CRESTOR) 10 mg tablet Take 1 tablet by mouth once daily. amLODIPine (NORVASC) 5 mg tablet Take 1 tablet by mouth once daily. traZODone (DESYREL) 50 mg tablet Take 1 tablet by mouth daily at bedtime. coenzyme Q10 (COENZYME Q-10) 100 mg cap capsule Take by mouth. multivitamin tablet Take by mouth. cholecalciferol (VITAMIN D3) 1,000 unit tab tablet Take 25 mcg by mouth. calcium carbonate (OS-FLACO 500) 500 mg calcium (1,250 mg) tablet Take 650 mg by mouth. nitrofurantoin monohydrate and macrocrystal (MACROBID) 100 mg capsule Take 1 capsule by mouth twice daily for 7 days. FAMILY HISTORY Problem Relation Age of Onset Diabetes Father Diabetes Sister Heart Father Stroke Father GI Mother Social History Tobacco Use Smoking status: Never Passive exposure: Past Smokeless tobacco: Never Vaping Use Vaping Use: Never used Substance Use Topics Alcohol use: No Drug use: No Review of Systems Constitutional: Negative for chills, fever and weight loss. Respiratory: Negative for cough, shortness of breath and wheezing. Cardiovascular: Negative for chest pain and palpitations. Gastrointestinal: Negative for abdominal pain, blood in stool, constipation, diarrhea, heartburn, melena, nausea and vomiting. Genitourinary: Positive for frequency and urgency. Negative for dysuria, flank pain and hematuria. Objective Blood pressure 122/82, pulse 88, temperature 36.5 C (97.7 F), resp. rate 16, weight 76.2 kg (168 lb), SpO2 98 %. Physical Exam Constitutional: General: She is not in acute distress. Appearance: Normal appearance. She is not toxic-appearing. Cardiovascular: Rate and Rhythm: Normal rate and regular rhythm. Heart sounds: Normal heart sounds. Pulmonary: Effort: Pulmonary effort is normal. Breath sounds: Normal breath sounds. Abdominal: General: Bowel sounds are normal. Palpations: Abdomen is soft. Tenderness: There is no abdominal tenderness. Skin: General: Skin is warm and dry. ASSESSMENT/PLAN: 1. Increased urinary frequency - ICD9: 788.41, ICD10: R35.0 acute - UA positive for hematuria - Send urine for culture - Begin treatment with Macrobid 100 mg BID for 7 days - UA DIP, URINE (POC) - URINE CULTURE - NITROFURANTOIN MONOHYDRATE & MACROCRYSTAL 100 MG ORAL CAP Alex Cornell APRN.GRADE TEACHER documented in this encounter [facility] 10-07-2022 History of Present illness Narrative `This note was created using [employer]. Subjective Ingrid Choe is a 62 year old female. She presents today for follow-up for multiple medical problems. Her chronic medical problems are improved and stable. Blood pressures been under excellent control on her current regimen. She is using trazodone for sleep. This is helpful. She has no new complaints today. Review of Systems Constitutional: Negative. HENT: Negative. Eyes: Negative. Respiratory: Negative. Cardiovascular: Negative. Gastrointestinal: Negative. Endocrine: Negative. Genitourinary: Negative. Musculoskeletal: Negative. Skin: Negative. Allergic/Immunologic: Negative. Neurological: Negative. Hematological: Negative. Psychiatric/Behavioral: Negative. Objective BP 120/80 (BP Site: Right Arm, BP Position: Sitting) Pulse 81 Temp 36.2 C (97.1 F) (Temporal) Resp 14 Ht 157.5 cm (5' 2 ) Wt 74.8 kg (165 lb) SpO2 98% BMI 30.18 kg/m Physical Exam Vitals reviewed. Constitutional: Appearance: Normal appearance. HENT: Head: Normocephalic and atraumatic. Nose: Nose normal. Eyes: Extraocular Movements: Extraocular movements intact. Pupils: Pupils are equal, round, and reactive to light. Cardiovascular: Rate and Rhythm: Normal rate and regular rhythm. Pulmonary: Effort: Pulmonary effort is normal. Breath sounds: Normal breath sounds. Abdominal: General: Bowel sounds are normal. Palpations: Abdomen is soft. Musculoskeletal: General: Normal range of motion. Cervical back: Normal range of motion and neck supple. Skin: General: Skin is warm and dry. Capillary Refill: Capillary refill takes less than 2 seconds. Neurological: General: No focal deficit present. Mental Status: She is alert and oriented to person, place, and time. Mental status is at baseline. Psychiatric: Mood and Affect: Mood normal. Behavior: Behavior normal. Assessment and Plan Ingrid was seen today for 6 month exam. Diagnoses and all orders for this visit: Hypertension, essential - COMP METABOLIC PANEL; Future Anxiety - traZODone (DESYREL) 50 mg tablet; Take 1 tablet by mouth daily at bedtime. Depression, unspecified depression type - traZODone (DESYREL) 50 mg tablet; Take 1 tablet by mouth daily at bedtime. Pure hypercholesterolemia - COMP METABOLIC PANEL; Future - LIPID PANEL BASIC; Future Other orders - rosuvastatin (CRESTOR) 10 mg tablet; Take 1 tablet by mouth once daily. - amLODIPine (NORVASC) 5 mg tablet; Take 1 tablet by mouth once daily. documented in this encounter [facility] 08-28-2022 Note HNO ID: [id number] Author: Cj Fuller APRN.GRADE TEACHER Service: ? Author Type: Nurse Practitioner Type: Progress Notes Filed: 08/28/2022 5:41 PM Note Text: Subjective HPI A nontoxic appearing female presents to urgent care with chief complaint of possible UTI. Duration of symptoms 1 day. Associated symptoms dysuria, frequency, and urgency. Patient has history of UTIs in past with similar signs and symptoms. Patient denies the use of any [id number] medications or home remedies for symptom management. Patient states pain is a 4/10. Patient denies any fevers, flank pain, abdominal pain, nausea, vomiting, vaginal discharge, or urological abnormalities. Past medical history prescription medication use allergies reviewed. .Patient presents with: Urinary Problem: Pt reported frequency, burning x1 day. PAST MEDICAL HISTORY Diagnosis Date Malignant neoplasm of breast (female), unspecified site Other and unspecified hyperlipidemia PAST SURGICAL HISTORY Procedure Laterality Date BX BREAST PERC VACUUM/ROTN 06/08/2008 Left - Negative COLONOSCOPY FLX DX W/COLLJ SPEC WHEN PFRMD 05/02/2007 Normal Colonoscopy LUMPECTOMY/RADIOTHERAPY DIAG MAMM/A10 MAMMO STEREOTACTIC CORE BIOPSY LT PAST SURGICAL HISTORY OF 1993 tubaligatiopn SUPRACERVICAL ABDL HYSTER W/WO RMVL TUBE OVARY ALLERGIES Mildew, Mold, Seasonal Allergies, and Hydrocodone MEDICATIONS coenzyme Q10 (COENZYME Q-10) 100 mg cap capsule Take by mouth. multivitamin tablet Take by mouth. cholecalciferol (VITAMIN D3) 1,000 unit tab tablet Take 25 mcg by mouth. calcium carbonate (OS-FLACO 500) 500 mg calcium (1,250 mg) tablet Take 650 mg by mouth. rosuvastatin (CRESTOR) 10 mg tablet Take 1 tablet by mouth once daily. amLODIPine (NORVASC) 5 mg tablet Take 1 tablet by mouth once daily. traZODone (DESYREL) 50 mg tablet Take 1 tablet by mouth daily at bedtime. FAMILY HISTORY Problem Relation Age of Onset Diabetes Father Diabetes Sister Heart Father Stroke Father GI Mother Social History Tobacco Use Smoking status: Never Smokeless tobacco: Never Substance Use Topics Alcohol use: No Drug use: No BP 128/74 Pulse 97 Temp 36.6 ?C (97.8 ?F) (Tympanic) Resp 16 Wt 76.5 kg (168 lb 9.6 oz) SpO2 97% BMI 30.84 kg/m? Review of Systems Constitutional: Negative for chills, fever and malaise/fatigue. HENT: Negative for congestion, ear discharge, ear pain, sinus pain and sore throat. Eyes: Negative for blurred vision, pain, discharge and redness. Respiratory: Negative for cough, hemoptysis, sputum production, shortness of breath, wheezing and stridor. Cardiovascular: Negative for chest pain. Gastrointestinal: Negative for abdominal pain, diarrhea, nausea and vomiting. Genitourinary: Positive for dysuria, frequency and urgency. Negative for flank pain and hematuria. Musculoskeletal: Negative for myalgias. Skin: Negative for itching and rash. Neurological: Negative for dizziness and headaches. Objective Physical Exam Constitutional: General: She is not in acute distress. Appearance: She is not diaphoretic. HENT: Head: Normocephalic. Mouth/Throat: Mouth: Mucous membranes are moist. Pharynx: Oropharynx is clear. No oropharyngeal exudate or posterior oropharyngeal erythema. Eyes: Conjunctiva/sclera: Conjunctivae normal. Pupils: Pupils are equal, round, and reactive to light. Cardiovascular: Rate and Rhythm: Normal rate and regular rhythm. Heart sounds: Normal heart sounds. Pulmonary: Effort: Pulmonary effort is normal. No tachypnea, accessory muscle usage or respiratory distress. Breath sounds: Normal breath sounds. No stridor. No wheezing, rhonchi or rales. Abdominal: General: There is no distension. Palpations: Abdomen is soft. Tenderness: There is no abdominal tenderness. There is no right CVA tenderness, left CVA tenderness, guarding or rebound. Musculoskeletal: Cervical back: Normal range of motion. Skin: General: Skin is warm and dry. Neurological: Mental Status: She is alert and oriented to person, place, and time. ASSESSMENT/PLAN: 1. Urinary frequency - ICD9: 788.41, ICD10: R35.0 - UA DIP, URINE (POC) - URINE CULTURE Urine positive for leukocytes nitrites and blood. History of UTIs in the past this feels similar. Patient will be treated for acute cystitis. Will be placed on Keflex twice daily 7 days 500 mg. Patient was educated on supportive therapies. Patient will follow up with primary care provider as needed. Patient was instructed to immediately proceed to emergency room for any new, worsening, or symptoms lasting longer than anticipated. The patient's clinical presentation is otherwise unremarkable at this time. Based on exam and clinical finding, the patient is stable for discharge. Plan of care was discussed with patient. Patient verbalizes understanding and agrees to plan of care. This note was generated using [employer] software. It may (more content not included)... [facility] 08-28-2022 Instructions Cj Fuller APRN.GRADE TEACHER - 08/28/2022 5:33 PM EST URINARY TRACT INFECTION GENERAL INFORMATION: A urinary tract infection (UTI) is an infection of the bladder or kidneys. A bladder infection, called cystitis, is the more common type. If the infection travels up to the kidneys, it is called pyelonephritis. This can be more serious. UTIs are a common problem in women. Having sexual relations can leave a woman more susceptible to developing a UTI, but it is not sexually transmitted like gonorrhea. Some women have a problem with recurrent UTIs. INSTRUCTIONS: 1. Your doctor prescribed an antibiotic to treat the UTI. Take exactly as directed. Be sure to take all the medication prescribed, even if your symptoms disappear. If you stop treatment early, the infection may not be fully treated and the symptoms could come back again. 2. Get plenty of rest. You may take acetaminophen for fever and aches. 3. Drink 6 to 8 glasses of fluids, especially water, every day. This helps wash out germs from your urinary tract. Cranberry juice or other sources of vitamin C are also good for you. 4. Urinate often, as soon as you feel the urge. Empty your bladder completely. Urinate before and after you have sex. 5. Always wipe from front to back after going to the bathroom. This pushes germs away from your bladder, rather than towards it. 6. Showers are better than baths, and you should wash the genital area daily. Avoid bubble bath or bath oils if you do take a bath. 7. Wear underwear and pantyhose with a cotton crotch. CONTACT YOUR DOCTOR: 1. You have a temperature over 102F (38.8C) after 48 hours on medication. 2. You notice blood in your urine. 3. Your symptoms don't improve in 2 days. 4. You develop nausea, vomiting, diarrhea, or a rash. 5. You develop new or unexplained symptoms. These may be related to the medication you are taking. 6. Your symptoms return after you finish treatment. RETURN TO THE EMERGENCY DEPARTMENT IF: You develop vomiting and can't keep your medication or fluids down. documented in this encounter [facility] 08-28-2022 History of Present illness Narrative Subjective HPI A nontoxic appearing female presents to urgent care with chief complaint of possible UTI. Duration of symptoms 1 day. Associated symptoms dysuria, frequency, and urgency. Patient has history of UTIs in past with similar signs and symptoms. Patient denies the use of any [id number] medications or home remedies for symptom management. Patient states pain is a 4/10. Patient denies any fevers, flank pain, abdominal pain, nausea, vomiting, vaginal discharge, or urological abnormalities. Past medical history prescription medication use allergies reviewed. .Patient presents with: Urinary Problem: Pt reported frequency, burning x1 day. PAST MEDICAL HISTORY Diagnosis Date Malignant neoplasm of breast (female), unspecified site Other and unspecified hyperlipidemia PAST SURGICAL HISTORY Procedure Laterality Date BX BREAST PERC VACUUM/ROTN 06/08/2008 Left - Negative COLONOSCOPY FLX DX W/COLLJ SPEC WHEN PFRMD 05/02/2007 Normal Colonoscopy LUMPECTOMY/RADIOTHERAPY DIAG MAMM/A10 MAMMO STEREOTACTIC CORE BIOPSY LT PAST SURGICAL HISTORY OF 1993 tubaligatiopn SUPRACERVICAL ABDL HYSTER W/WO RMVL TUBE OVARY ALLERGIES Mildew, Mold, Seasonal Allergies, and Hydrocodone MEDICATIONS coenzyme Q10 (COENZYME Q-10) 100 mg cap capsule Take by mouth. multivitamin tablet Take by mouth. cholecalciferol (VITAMIN D3) 1,000 unit tab tablet Take 25 mcg by mouth. calcium carbonate (OS-FLACO 500) 500 mg calcium (1,250 mg) tablet Take 650 mg by mouth. rosuvastatin (CRESTOR) 10 mg tablet Take 1 tablet by mouth once daily. amLODIPine (NORVASC) 5 mg tablet Take 1 tablet by mouth once daily. traZODone (DESYREL) 50 mg tablet Take 1 tablet by mouth daily at bedtime. FAMILY HISTORY Problem Relation Age of Onset Diabetes Father Diabetes Sister Heart Father Stroke Father GI Mother Social History Tobacco Use Smoking status: Never Smokeless tobacco: Never Substance Use Topics Alcohol use: No Drug use: No BP 128/74 Pulse 97 Temp 36.6 C (97.8 F) (Tympanic) Resp 16 Wt 76.5 kg (168 lb 9.6 oz) SpO2 97% BMI 30.84 kg/m Review of Systems Constitutional: Negative for chills, fever and malaise/fatigue. HENT: Negative for congestion, ear discharge, ear pain, sinus pain and sore throat. Eyes: Negative for blurred vision, pain, discharge and redness. Respiratory: Negative for cough, hemoptysis, sputum production, shortness of breath, wheezing and stridor. Cardiovascular: Negative for chest pain. Gastrointestinal: Negative for abdominal pain, diarrhea, nausea and vomiting. Genitourinary: Positive for dysuria, frequency and urgency. Negative for flank pain and hematuria. Musculoskeletal: Negative for myalgias. Skin: Negative for itching and rash. Neurological: Negative for dizziness and headaches. Objective Physical Exam Constitutional: General: She is not in acute distress. Appearance: She is not diaphoretic. HENT: Head: Normocephalic. Mouth/Throat: Mouth: Mucous membranes are moist. Pharynx: Oropharynx is clear. No oropharyngeal exudate or posterior oropharyngeal erythema. Eyes: Conjunctiva/sclera: Conjunctivae normal. Pupils: Pupils are equal, round, and reactive to light. Cardiovascular: Rate and Rhythm: Normal rate and regular rhythm. Heart sounds: Normal heart sounds. Pulmonary: Effort: Pulmonary effort is normal. No tachypnea, accessory muscle usage or respiratory distress. Breath sounds: Normal breath sounds. No stridor. No wheezing, rhonchi or rales. Abdominal: General: There is no distension. Palpations: Abdomen is soft. Tenderness: There is no abdominal tenderness. There is no right CVA tenderness, left CVA tenderness, guarding or rebound. Musculoskeletal: Cervical back: Normal range of motion. Skin: General: Skin is warm and dry. Neurological: Mental Status: She is alert and oriented to person, place, and time. ASSESSMENT/PLAN: 1. Urinary frequency - ICD9: 788.41, ICD10: R35.0 - UA DIP, URINE (POC) - URINE CULTURE Urine positive for leukocytes nitrites and blood. History of UTIs in the past this feels similar. Patient will be treated for acute cystitis. Will be placed on Keflex twice daily 7 days 500 mg. Patient was educated on supportive therapies. Patient will follow up with primary care provider as needed. Patient was instructed to immediately proceed to emergency room for any new, worsening, or symptoms lasting longer than anticipated. The patient's clinical presentation is otherwise unremarkable at this time. Based on exam and clinical finding, the patient is stable for discharge. Plan of care was discussed with patient. Patient verbalizes understanding and agrees to plan of care. This note was generated using [employer] software. It may contain errors in wording, punctuation, or spelling. Cj Fuller APRN.GRADE TEACHER documented in this encounter [facility] 08-20-2022 History of Present illness Narrative This note was created using [employer]. Subjective Ingrid Choe is a 62 year old female. Patient presents to the office today for a follow up for depression, anxiety, and insomnia. Patient was started on trazodone 50mg po qhs. Patient is tolerating medication without any side effects. Patient reports she is sleep better. Patient reports he anxiety and depression symptoms are no well controlled. Patient's BP remains well controlled. Review of Systems Constitutional: Negative. HENT: Negative. Eyes: Negative. Respiratory: Negative. Cardiovascular: Negative. Gastrointestinal: Negative. Endocrine: Negative. Genitourinary: Negative. Musculoskeletal: Negative. Skin: Negative. Allergic/Immunologic: Negative. Neurological: Negative. Hematological: Negative. Psychiatric/Behavioral: Negative. Objective BP 112/70 (BP Site: Left Arm, BP Position: Sitting) Pulse 90 Temp 36.3 C (97.3 F) (Temporal) Resp 14 Ht 157.5 cm (5' 2 ) Wt 76.7 kg (169 lb) SpO2 99% BMI 30.91 kg/m Physical Exam Constitutional: General: She is not in acute distress. Appearance: Normal appearance. She is not ill-appearing, toxic-appearing or diaphoretic. HENT: Head: Normocephalic. Right Ear: Tympanic membrane, ear canal and external ear normal. Left Ear: Tympanic membrane, ear canal and external ear normal. Nose: Nose normal. Mouth/Throat: Mouth: Mucous membranes are moist. Pharynx: Oropharynx is clear. Eyes: Extraocular Movements: Extraocular movements intact. Conjunctiva/sclera: Conjunctivae normal. Pupils: Pupils are equal, round, and reactive to light. Neck: Vascular: No carotid bruit. Cardiovascular: Rate and Rhythm: Normal rate and regular rhythm. Pulses: Normal pulses. Heart sounds: Normal heart sounds. No murmur heard. Pulmonary: Effort: Pulmonary effort is normal. No respiratory distress. Breath sounds: Normal breath sounds. Abdominal: General: Bowel sounds are normal. There is no distension. Palpations: Abdomen is soft. Musculoskeletal: General: Normal range of motion. Cervical back: Normal range of motion and neck supple. No rigidity or tenderness. Lymphadenopathy: Cervical: No cervical adenopathy. Skin: General: Skin is warm and dry. Capillary Refill: Capillary refill takes less than 2 seconds. Neurological: General: No focal deficit present. Mental Status: She is alert and oriented to person, place, and time. Psychiatric: Mood and Affect: Mood normal. Behavior: Behavior normal. Thought Content: Thought content normal. Judgment: Judgment normal. Assessment and Plan ASSESSMENT/PLAN: 1. Anxiety - ICD9: 300.00, ICD10: F41.9 (primary diagnosis) Symptoms well controlled, continue medication 2. Depression, unspecified depression type - ICD9: 311, ICD10: F32.A Symptoms well controlled, continue current regimen 3. Essential (primary) hypertension - ICD9: 401.9, ICD10: I10 - good control - Continue current medication(s) - Recommended regular aerobic exercise. - Recommend home blood pressure monitoring, to bring results in on next visit - Goal of BP <130/80 Payal Valadez APRN.GRADE TEACHER documented in this encounter [facility] 07-23-2022 Instructions Payal Valadez APRN.MARIKA - 07/23/2022 9:03 AM EST - Take medications as prescribed. Notify office with any health issues or conerns - Monitor BP at home. Notify office if BP is consistently above 140/90 - Begin taking trazodone 50mg by mouth at bedtime. Take about 45 minutes before you fall asleep. - Exercise, eat healthy, practice healthy sleep habits, and participate in healthy hobbies you enjoy. - Follow up in 1 month. documented in this encounter [facility] 07-23-2022 History of Present illness Narrative This note was created using [employer]. Subjective Ingrid Choe is a 62 year old female. Patient presents to the office today for HTN. Patient had been monitoring her BP on a regular basis and it was averaging in the 160's/100. Patient went to the ER on 07/17/2022 at [facility] and was placed on Norvasc 5mg daily. Since that time patient has been monitoring her BP and it has been well controlled while taking this medication. Patient also reports that she has been feeling depressed and anxiety. Patient denies any suicidal thoughts, thoughts of self harm, or thoughts of harming others. Her anxiety often comes at night and her mind races which makes it difficult for her to sleep. She was treated for anxiety and depression in the past with Lexapro 5mg daily which worked well however when she did wean off of this medication patient reports the had very bad side effects including brain zaps . Review of Systems Constitutional: Negative. HENT: Negative. Eyes: Negative. Respiratory: Negative. Cardiovascular: Negative. Gastrointestinal: Negative. Endocrine: Negative. Genitourinary: Negative. Musculoskeletal: Negative. Skin: Negative. Allergic/Immunologic: Negative. Neurological: Negative. Hematological: Negative. Psychiatric/Behavioral: Positive for dysphoric mood. Negative for agitation, behavioral problems, confusion, decreased concentration, hallucinations, self-injury, sleep disturbance and suicidal ideas. The patient is nervous/anxious. The patient is not hyperactive. Objective BP 134/86 (BP Site: Right Arm, BP Position: Sitting) Pulse 96 Temp 36.2 C (97.1 F) (Temporal) Resp 14 Ht 157.5 cm (5' 2 ) Wt 76.8 kg (169 lb 6.4 oz) SpO2 98% BMI 30.98 kg/m Physical Exam Constitutional: General: She is not in acute distress. Appearance: Normal appearance. She is obese. She is not ill-appearing, toxic-appearing or diaphoretic. HENT: Head: Normocephalic and atraumatic. Nose: Nose normal. Mouth/Throat: Mouth: Mucous membranes are moist. Pharynx: Oropharynx is clear. Eyes: Extraocular Movements: Extraocular movements intact. Conjunctiva/sclera: Conjunctivae normal. Pupils: Pupils are equal, round, and reactive to light. Cardiovascular: Rate and Rhythm: Normal rate and regular rhythm. Pulses: Normal pulses. Heart sounds: Normal heart sounds. No murmur heard. Pulmonary: Effort: Pulmonary effort is normal. Breath sounds: Normal breath sounds. Abdominal: General: Bowel sounds are normal. There is no distension. Palpations: Abdomen is soft. Musculoskeletal: General: Normal range of motion. Cervical back: Normal range of motion and neck supple. Skin: General: Skin is warm and dry. Capillary Refill: Capillary refill takes less than 2 seconds. Neurological: General: No focal deficit present. Mental Status: She is alert and oriented to person, place, and time. Psychiatric: Mood and Affect: Mood normal. Behavior: Behavior normal. Thought Content: Thought content normal. Judgment: Judgment normal. Assessment and Plan ASSESSMENT/PLAN: 1. Essential (primary) hypertension - ICD9: 401.9, ICD10: I10 (primary diagnosis) - good control - Continue current medication(s) - Recommended regular aerobic exercise. - Recommend home blood pressure monitoring, to bring results in on next visit - Goal of BP <130/80 2. Anxiety - ICD9: 300.00, ICD10: F41.9 Discussed treatment options in detail with patient. Patient prefers to try to avoid SSRI medications at this time due to the withdrawal side effects she had in the past when weaning off of Lexapro. Patient to start medication below. Patient to implement lifstyle modifications to help improve mood. Follow up in 1 month. - TRAZODONE 50 MG TABLET 3. Depression, unspecified depression type - ICD9: 311, ICD10: F32.A Patient to start medications as listed below. - TRAZODONE 50 MG TABLET Follow up in 1 month Payal Valadez APRN.GRADE TEACHER documented in this encounter [facility] 06-17-2022 Note ORIGINAL EXAMINATION: MRI OF THE RIGHT KNEE WITHOUT CONTRAST 06/17/2022 10:45 am TECHNIQUE: Multiplanar multisequence MRI of the right knee was performed without the administration of intravenous contrast. COMPARISON: None. HISTORY: ORDERING SYSTEM PROVIDED HISTORY: Reason for Exam: Pain FINDINGS: The cruciate ligaments appear normal. The medial collateral ligament, lateral collateral ligament and iliotibial band are intact. The lateral meniscus and lateral tibiofemoral cartilage appear normal. A discoid configuration is seen of the lateral meniscus. Moderate attenuation medial tibiofemoral cartilage noted. There appears to be a complex tear of the posterior horn body of the medial meniscus with both horizontal and vertical components. The patellar tendon, quadriceps tendon and retinaculum appear unremarkable. Small Payne's cyst noted. High-grade patellofemoral cartilage loss is most severe near the median ridge. A small joint effusion visualized. The popliteus tendon, pes anserine tendons and conjoined tendon are intact. No aggressive osseous lesion. Small bone islands seen in the tibia and femur IMPRESSION: Complex tear of the posterior horn and body of the medial meniscus Discoid configuration of the lateral meniscus Multifocal cartilage loss Interpreted by: Charlie Cuevas MD Preliminary Report By: Charlie Cuevas MD Electronically signed By Charlie Cuevas MD Dictated Date: 06/17/2022 12:30:06 PM Prelim Date: 06/17/2022 12:33:41 PM Sign Date: 06/17/2022 12:33:41 PM Ordering Provider: [facility] 06-17-2022 Note ORIGINAL EXAMINATION: MRI OF THE RIGHT KNEE WITHOUT CONTRAST 06/17/2022 10:45 am TECHNIQUE: Multiplanar multisequence MRI of the right knee was performed without the administration of intravenous contrast. COMPARISON: None. HISTORY: ORDERING SYSTEM PROVIDED HISTORY: Reason for Exam: Pain FINDINGS: The cruciate ligaments appear normal. The medial collateral ligament, lateral collateral ligament and iliotibial band are intact. The lateral meniscus and lateral tibiofemoral cartilage appear normal. A discoid configuration is seen of the lateral meniscus. Moderate attenuation medial tibiofemoral cartilage noted. There appears to be a complex tear of the posterior horn body of the medial meniscus with both horizontal and vertical components. The patellar tendon, quadriceps tendon and retinaculum appear unremarkable. Small Payne's cyst noted. High-grade patellofemoral cartilage loss is most severe near the median ridge. A small joint effusion visualized. The popliteus tendon, pes anserine tendons and conjoined tendon are intact. No aggressive osseous lesion. Small bone islands seen in the tibia and femur IMPRESSION: Complex tear of the posterior horn and body of the medial meniscus Discoid configuration of the lateral meniscus Multifocal cartilage loss Interpreted by: Charlie Cuevas MD Preliminary Report By: Charlie Cuevas MD Electronically signed By Charlie Cuevas MD Dictated Date: 06/17/2022 12:30:06 PM Prelim Date: 06/17/2022 12:33:41 PM Sign Date: 06/17/2022 12:33:41 PM Ordering Provider: NEHA MOSQUERA [facility] 03-06-2022 History of Present illness Narrative CC: Patient presents with: Cough: cough, St, bodyaches and ARAMBULA x 3.5 weeks HPI: Ingrid Choe is a 62 year old female who presents to the office with complaint of head congestion, cough, nonproductive and sinus symptoms for 3 weeks. Symptoms are staying the same. Associated symptoms includes nasal congestion and facial pain/pressure. Denies fever, nausea, vomiting and diarrhea. Treatments tried include OTC cold medicine with no relief of symptoms. Sick contacts: unknown. History of asthma, frequent episodes of bronchitis, chronic bronchitis, bronchiectasis or COPD: No Smoker: No Seasonal/environmental allergies: No The ROS is otherwise negative. The patient's pmh, medications, allergies, and past visits are reviewed. PHYSICAL EXAM: BP 142/82 Pulse 98 Temp 36.6 C (97.9 F) (Tympanic) Resp 18 Wt 75.8 kg (167 lb 3.2 oz) SpO2 97% General appearance: alert, cooperative, pleasant, in no acute distress Head: Normocephalic Eyes: EOM's intact, conjunctiva pink and moist, no icterus, sclera white, non-injected Ears: Right ear: External ear/canal- Normal, TM - clear with good landmarks. Left ear: External ear/canal- Normal, TM - clear with good landmarks Oropharynx:mild erythema, without exudates present} Heart: Negative. RRR without obvious murmur, gallop, or rubs. No ectopy. Lungs: clear to auscultation, without rales or wheeze, good air exchange PAST MEDICAL HISTORY Diagnosis Date Malignant neoplasm of breast (female), unspecified site Other and unspecified hyperlipidemia PAST SURGICAL HISTORY Procedure Laterality Date BX BREAST PERC VACUUM/ROTN 06/08/2008 Left - Negative COLONOSCOPY FLX DX W/COLLJ SPEC WHEN PFRMD 05/02/2007 Normal Colonoscopy LUMPECTOMY/RADIOTHERAPY DIAG MAMM/A10 MAMMO STEREOTACTIC CORE BIOPSY LT PAST SURGICAL HISTORY OF 1993 tubaligatiopn SUPRACERVICAL ABDL HYSTER W/WO RMVL TUBE OVARY ALLERGIES Patient has no known allergies. MEDICATIONS rosuvastatin (CRESTOR) 10 mg tablet doxycycline (VIBRA-TABS) 100 mg tablet Take 1 tablet by mouth twice daily for 10 days. albuterol HFA (PROVENTIL HFA, VENTOLIN HFA) 90 mcg/actuation inhaler Inhale 2 Puffs as instructed every 6 hours as needed for wheezing/shortness of breath. Inhalational Spacing Device 1 Device one time only for 1 dose. predniSONE (DELTASONE) 20 mg tablet Take 2 tablets by mouth once daily for 5 days. Take daily with food. alendronate (FOSAMAX) 70 mg ORAL Tab take 1/2 tablet daily Tamoxifen Citrate 20 mg ORAL Tab one (1) daily FAMILY HISTORY Problem Relation Age of Onset Diabetes Father Diabetes Sister Heart Father Stroke Father GI Mother Social History Tobacco Use Smoking status: Never Smoker Smokeless tobacco: Never Used Substance Use Topics Alcohol use: No Drug use: No ASSESSMENT/PLAN: 1. Acute cough - ICD9: 786.2, ICD10: R05.1 (primary diagnosis) 2. Head congestion - ICD9: 478.19, ICD10: R09.81 prednisone 40mg daily for 5 days, doxycyline bid for 10 days, and albuterol PRN. Prescription instructions reviewed with patient as applicable. Potential red flag symptoms discussed with the patient and patient will follow up at ER if they occur. Reviewed appropriate action plan to take if red flag symptoms occur. Patient agreeable to treatment plan. Natasha Bunn APRN.MARIKA documented in this encounter [facility] Evaluation + Plan note No data available for this section [facility] Diagnosis Essential (primary) hypertension- Primary Unspecified essential hypertension Anxiety Anxiety state, unspecified Depression, unspecified depression type [facility] Diagnosis Anxiety- Primary Anxiety state, unspecified Depression, unspecified depression type Essential (primary) hypertension Unspecified essential hypertension [facility] Diagnosis Urinary frequency- Primary documented in this encounter [facility] note* Diagnosis Hypertension, essential- Primary Unspecified essential hypertension Anxiety Anxiety state, unspecified Depression, unspecified depression type Pure [facility]olesterolemia [facility] Diagnosis Increased urinary frequency- Primary Urinary frequency documented in this encounter [facility] note* Diagnosis Urinary frequency- Primary Pure hypercholesterolemia documented in this encounter [facility] note* Diagnosis Wellness examination- Primary Encounter for immunization Need for other specified prophylactic vaccination against single bacterial disease Lipid screening Screening for lipoid disorders Screening for deficiency anemia Screening for other and unspecified deficiency anemia Pure hypercholesterolemia Hypertension, essential Unspecified essential hypertension documented in this encounter [facility] note* Diagnosis Burning with urination- Primary Dysuria [facility] Diagnosis Hypertension, essential- Primary Unspecified essential hypertension Arthralgia of multiple joints Pain in joint, multiple sites Pure hypercholesterolemia Polyarthritis Unspecified polyarthropathy or polyarthritis, site unspecified documented in this encounter [facility] Discharge instructions No data available for this section [facility] Summary Purpose Family History No Family History Records FoundNo Family History Records FoundNo Family History Records FoundNo Family History Records Found Advance Directives No Advanced Directives Records FoundNo Advanced Directives Records FoundNo Advanced Directives Records FoundNo Advanced Directives Records Found Reason for Referral Specialty Diagnoses / Procedures Referred By Joanne tello Referred To Contact Rheumatology Diagnoses Arthralgia of multiple joints Procedures CONSULT TO RHEUM/IMMUN DISEASE OFFICE/OUTPATIENT [facility] 60 MINUTES Rodri Mosqueda MD [address] [place] [address] Referral ID Status Reason Start Date Expiration Date Visits Requested Visits Authorized [id number] Pending Review PCP Requested Referral 10/13/2023 10/12/2024 1 1 Additional Source Comments INFORMATION SOURCE (unrecogn ized section and content) DATE CREATED AUTHOR AUTHOR'S ORGANIZ ATION 06/18/2022 [facility] DATE CREATED AUTHOR AUTHOR'S ORGANIZ ATION 08/18/2023 [facility] DATE CREATED AUTHOR AUTHOR'S ORGANIZ ATION 10/15/2023 [facility] nter Source Comments (unrecognize d section and content) In the event this informatio n is protected by the Federal Confidentiality of Alcohol and Drug Abuse Patient Records regulations: The Federal rules restrict any use of the information to criminally investigate or prosecute any alcohol or drug abuse patient.[facility] CenterIn the event this information is protected by the Federal Confidentiality of Alcohol and Drug Abuse Patient Records regulations: The Federal rules restrict any use of the information to criminally investigate or prosecute any alcohol or drug abuse patient.[facility] CenterIn the event this information is protected by the Federal Confidentiality of Alcohol and Drug Abuse Patient Records regulations: The Federal rules restrict any use of the information to criminally investigate or prosecute any alcohol or drug abuse patient.[facility] CenterIn the event this information is protected by the Federal Confidentiality of Alcohol and Drug Abuse Patient Records regulations: The Federal rules restrict any use of the information to criminally investigate or prosecute any alcohol or drug abuse patient.[facility] CenterIn the event this information is protected by the Federal Confidentiality of Alcohol and Drug Abuse Patient Records regulations: The Federal rules restrict any use of the information to criminally investigate or prosecute any alcohol or drug abuse patient.[facility] CenterIn the event this information is protected by the Federal Confidentiality of Alcohol and Drug Abuse Patient Records regulations: The Federal rules restrict any use of the information to criminally investigate or prosecute any alcohol or drug abuse patient.[facility] CenterIn the event this information is protected by the Federal Confidentiality of Alcohol and Drug Abuse Patient Records regulations: The Federal rules restrict any use of the information to criminally investigate or prosecute any alcohol or drug abuse patient.[facility] CenterIn the event this information is protected by the Federal Confidentiality of Alcohol and Drug Abuse Patient Records regulations: The Federal rules restrict any use of the information to criminally investigate or prosecute any alcohol or drug abuse patient.[facility] CenterIn the event this information is protected by the Federal Confidentiality of Alcohol and Drug Abuse Patient Records regulations: The Federal rules restrict any use of the information to criminally investigate or prosecute any alcohol or drug abuse patient.[facility] CenterIn the event this information is protected by the Federal Confidentiality of Alcohol and Drug Abuse Patient Records regulations: The Federal rules restrict any use of the information to criminally investigate or prosecute any alcohol or drug abuse patient.[facility] CenterIn the event this information is protected by the Federal Confidentiality of Alcohol and Drug Abuse Patient Records regulations: The Federal rules restrict any use of the information to criminally investigate or prosecute any alcohol or drug abuse patient.[facility] CenterIn the event this information is protected by the Federal Confidentiality of Alcohol and Drug Abuse Patient Records regulations: The Federal rules restrict any use of the information to criminally investigate or prosecute any alcohol or drug abuse patient.[facility] CenterIn the event this information is protected by the Federal Confidentiality of Alcohol and Drug Abuse Patient Records regulations: The Federal rules restrict any use of the information to criminally investigate or prosecute any alcohol or drug abuse patient.[facility] CenterIn the event this information is protected by the Federal Confidentiality of Alcohol and Drug Abuse Patient Records regulations: The Federal rules restrict any use of the information to criminally investigate or prosecute any alcohol or drug abuse patient.[facility] Reason for Visit (unrecogniz ed section and content) Reason Comments Acute Visit anxiety and elevated blood pressure Reason Comments F/U 1 month anxiety & depression ---Trazodone 50mg daily at bedtime is helping and helping her sleep better---she wants to stay on this dose for now Reason Comments Urinary Problem Pt reported frequenc y, burning x1 day. Reason Comments 6 Month Exam chronic conditions Reason Comments UTI Frequency in urinati on Reason Comments Results Reason Comments Hematuria Reason Comments Wellness Reason Comments Urinary Problem Burning and frequenc y x 3 days Reason Comments 6 Month Exam Reason Comments Rheumatology referral faxed to Dr Benton Care Teams (unrecognized sec tion and content) Chief Nurse Anesthetist Relationship Specialty Start Date End Date Rodri Mosqueda MD PCP - General 04/08/07 Chief Nurse Anesthetist Relationship Specialty Start Date End Date Rodri Mosqueda MD PCP - General 04/08/07 Chief Nurse Anesthetist Relationship Specialty Start Date End Date Rodri Mosqueda MD PCP - General 04/08/07 Chief Nurse Anesthetist Relationship Specialty Start Date End Date Rodri Mosqueda MD PCP - General 04/08/07 Chief Nurse Anesthetist Relationship Specialty Start Date End Date Rodri Mosqueda MD PCP - General 04/08/07 Chief Nurse Anesthetist Relationship Specialty Start Date End Date Rodri Mosqueda MD PCP - General 04/08/07 Chief Nurse Anesthetist Relationship Specialty Start Date End Date Rodri Mosqueda MD PCP - General 04/08/07 Chief Nurse Anesthetist Relationship Specialty Start Date End Date Rodri Mosqueda MD PCP - General 04/08/07 Chief Nurse Anesthetist Relationship Specialty Start Date End Date Rodri Mosqueda MD [address] [place] [address] PCP - General Family Medicine 04/08/07 Kirk Jaimes [address] [place], [place] [id number] Gastroenterology 12/06/17 [facility], [place] [address] [place] [address] Orthopedics 09/06/21 Chief Nurse Anesthetist Relationship Specialty Start Date End Date Rodri Mosqueda MD [address] [place] [address] PCP - General Family Medicine 04/08/07 Kirk Jaimes MD [address] [place] [address] Gastroenterology 12/06/17 [facility], [place] [address] [place] [phone] Orthopedics 09/06/21 Chief Nurse Anesthetist Relationship Specialty Start Date End Date Rodri Mosqueda MD [address] [place] [address] PCP - General Family Medicine 04/08/07 Kirk Jaimes MD [address] [place] [address] Gastroenterology 12/06/17 [facility], [place] [address] [place] [phone] Orthopedics 09/06/21 Chief Nurse Anesthetist Relationship Specialty Start Date End Date Rodri Mosqueda MD [address] [place] [address] PCP - General Family Medicine 04/08/07 Kirk Jaimes MD [address] [place] [address] Gastroenterology 12/06/17 [facility], [place] [address] [place] [phone] Orthopedics 1/1/22 Care Team (unrecognized sect ion and content) Care Team Personnel Name: RODRI MOSQUEDA MD Member Role: Primary Care Physician Address: Address: [address] [place] [address]- [place] Care Team Related Persons Name: ANIL SMITH FOR RECORDS PERTAINING TO PATIENTS WHO ARE OR HAVE BEEN ENROLLED IN A CHEMICAL DEPENDENCY/SUBSTANCEABUSE PROGRAM, SOME INFORMATION MAY BE OMITTED. This clinical summary was aggregated from multiple sources. Caution should be exercised in using it in the provision of clinical care. This summary normalizes information from multiple sources, and as a consequence, information in this document may materially change the coding, format and clinical context of patient data. In addition, data may be omitted in some cases. CLINICAL DECISIONS SHOULD BE BASED ON THE PRIMARY CLINICAL RECORDS. [facility] [employer] provides no warranty or guarantee of the accuracy or completeness of information in this document.
[2023-10-21] MEDS: Atorvastatin Calcium 20 MG Tablet PO (20:58)
[2023-10-22] VITALS (10 sets, daily range): BP systolic 117–148; BP diastolic 72–99; PULSE 75–91; RESP 14–16; TEMP 36.6–36.7; O2SAT 96–100
--- NOTE | 2023-10-22 05:55 | EKG12_ITS ---
Test Reason : AM EKG Blood Pressure : / mmHG Vent. Rate : 087 BPM Atrial Rate : 087 BPM P-R Int : 142 ms QRS Dur : 074 ms QT Int : 394 ms P-R-T Axes : 057 019 038 degrees QTc Int : 474 ms Normal sinus rhythm Normal ECG Confirmed by Sukhwinder Amaro ([id number]), newspaper managing editor DENA BUSBY ([id number]) on 10/22/2023 9:51:12 AM Referred By: Confirmed By:Sukhwinder Amaro
[2023-10-22] MEDS: amLODIPine 5 MG Tablet PO (07:35)
--- NOTE | 2023-10-22 12:25 | STRESSREP_ITS ---
Stress Test Report Date: 10/22/2023 Procedure: Exercise tolerance test/imaging study Indications: Chest pain Consent: Per the patient Procedure: The patient exercised on a Monty protocol for 8 minutes and 15 seconds achieving a peak heart rate of 155 bpm (99% predicted maximal heart rate) with a peak blood pressure 156/96 mmHg and a peak MET capacity of 10.1 METs. The baseline ECG demonstrated normal sinus rhythm. The peak exercise ECG demonstrated upsloping ST depressions in the inferior and lateral leads. No significant ischemic changes. EKG during recovery revealed no significant ischemic changes [There were no cardiac dysrhythmias pretest, during exercise, or recovery]. The functional capacity was considered excellent for age. There was [no complaint of chest discomfort during exercise or recovery]. The examination was discontinued secondary to achieving target heart rate. Impression: 1. Technically adequate (percent predicted maximal heart rate greater than 85%) exercise tolerance test 2. Stress test is negative for exercise-induced EKG changes of ischemia 3. The test test is negative for exercise-induced chest pain 4. Functional capacity is excellent for age 5. Nuclear images pending Myocardial perfusion imaging study: Technique: The patient was injected with 11.7 mCi of technetium 99m Cardiolite and subsequently rest SPECT Cardiolite nuclear imaging was obtained in the horizontal long, vertical long, and short axis views. The patient exercised on a Monty protocol. Please see above for details. The patient was injected with 36 mCi of technetium 99m Cardiolite and subsequently stress SPECT Cardiolite nuclear imaging was obtained in the horizontal long, vertical long, and short axis views. A gated Cardiolite study at peak stress was obtained. Interpretation: Rest and stress SPECT Cardiolite nuclear imaging status post realignment, normalization, and attenuation correction, demonstrates normal myocardial radioisotope uptake at rest. On the stress images there is mild decrease in the radioisotope uptake in the apex suggestive of mild apical ischemia. The gated Cardiolite study demonstrates no significant regional wall motion abnormalities. The reported LVEF is 66%. Impression: 1. There is evidence of possible mild apical ischemia. 2. The gated Cardiolite study reports an LVEF of 66%. This note was generated with [employer] software. It may contain incorrect words, spelling, and punctuation that were not noted in checking the note before signing.
--- NOTE | 2023-10-22 12:49 | PCM.CONS.C ---
Assessment & Plan Assessment/Plan (1) Chest pain: QUALIFIERS: Chest pain type: unspecified Qualified Code(s): R07.9 - Chest pain, unspecified PLAN: Discussed stress test findings and treatment options in detail with the patient. Explained the risks and benefits. Will proceed with coronary angiography. Patient understands the risks and is willing to proceed. (2) Abnormal stress test: HPI Consult Data Date of Consult: 10/22/23 HPI Narrative HPI Narrative: NASIM BURCIAGA, is a 63 F who presents with chest pain. It initially started as intrascapular pain and then became a sharp constant chest pain that later became a chest heaviness. Patient underwent stress testing this morning which revealed possible apical ischemia. She has history of cardiac catheterization about 12 years ago and apparently at that time she did not have any significant CAD. [facility] Medical History Carpal tunnel syndrome Costochondritis Diarrhea Hyperlipidemia Pain of left breast Sleep apnea Home Medications coenzyme [id number] E 100 mg-5 unit capsule (Co Q-10 (with Vit E)) 1 ea PO DAILY supplement 12/03/15 [History Last Taken 10/20/23] calcium carbonate 500 mg calcium (1,250 mg) tablet 650 mg PO BID supplement 11/27/16 [History Last Taken 10/21/23] cholecalciferol (vitamin D3) 25 mcg (1,000 unit) tablet 25 mcg PO DAILY supplement 11/20/19 [History Last Taken 10/21/23] amlodipine 5 mg tablet 5 mg PO DAILY #30 tabs 07/17/22 [Rx Last Taken 10/20/23] multivitamin (Daily Multi-Vitamin tablet) 1 tab PO DAILY 10/21/23 [History Last Taken 10/21/23] rosuvastatin 20 mg tablet 10 mg PO QHS 10/21/23 [History Last Taken 10/20/23] Allergy/AdvReac Type Severity Reaction Status Date / Time acetaminophen [From Vicodin] Allergy Nausea Verified 10/21/23 10:49 hydrocodone [From Vicodin] Allergy Nausea Verified 10/21/23 10:49 Family History Mother Colon cancer Osteoporosis Heart disease Father CVA (cerebral vascular accident) Hypertension Hyperlipidemia Heart disease Diabetes Surgical History History of colonoscopy History of hysterectomy History of lumpectomy of left breast Status post left partial knee replacement Social History Smoking Status: Never smoker Physical Exam Const alert and oriented x3 HEENT normocephalic Eyes no scleral icterus Resp normal respiratory effort Cardio regular rate and regular rhythm Risk Stratification Risk Stratification Applicable: No Charges/Coding Visit Charges Inpatient E&M: 69447 Init Hosp L1 Objective Data Vital Signs: Vital Signs Temp Pulse Resp BP Pulse Ox O2 Del Method 98.1 F 89 14 134/92 H 100 Room Air 10/22/23 07:28 10/22/23 07:28 10/22/23 07:28 10/22/23 07:28 10/22/23 07:28 10/22/23 07:37 Oxygen Delivery Method Room Air Weight: 165 lb 12.602 oz Body Mass Index (BMI) 30.3 Intake & Output: Intake and Output for Last 24 Hours 10/20/23 10/21/23 10/22/23 23:59 23:59 23:59 Intake Total 220 / 220 Balance 220 / 220 Lab / Micro Data 10/21/23 11:03 10/21/23 11:03 Labs: Laboratory Results - last 24 hr 10/21/23 13:19: Troponin I High Sens 8 10/21/23 16:37: Troponin I High Sens 8 Rhythm Strip Rhythm Strip: Sinus Rhythm Rate: 86 Ectopy: None Cardiology Labs/Tests Rhythm: EKG: ECHO: Stress Test: Cardiac Cath: PCI: CT Surgery: Holter monitor: EPS: PPM: CXR: Chest CT Scan:
[2023-10-22] MEDS: 0.9% Normal Saline (1000mL) 1,000 ML 150 ML IV (14:23)
--- NOTE | 2023-10-22 15:06 | CL.D_ITS ---
Patient Name: NASIM BURCIAGA Study Date: 10/22/2023 Performing: Alejandra Escobar MD Ht: 62 inches 157.48 cm : 1960 Wt: 166 lbs 75.2 kg Age: 63 Gender: female BSA: 1.77 PROCEDURE(S) PERFORMED [id number]-([id number])[facility] CLINICAL PROFILE AND INDICATIONS Indications: ACS <= 24 hrs, Unstable angina, abnormal stress test Heart Failure: None CONCLUSIONS No significant obstructive coronary artery disease RECOMMENDATIONS DESCRIPTION OF PROCEDURE The patient arrived to the procedure lab. The risks and benefits of the procedure as well as a full description of our services here and current unavailability of surgical backup were fully explained to the patient and/or their significant other prior to the catheterization. The Timeout was completed, verifying the correct patient and procedure. The patient's procedural site was prepped and draped in the usual fashion. Local anesthetic was given subcutaneously to right radial region with Lidocaine 2%. Using a modified Seldinger technique, arterial access was obtained via the right radial artery, a 6Fr sheath was inserted. Left Coronary Artery selective angiography was performed in multiple views using a 5 Fr. JL3.5 catheter. Left Ventriculography was performed in AYON projection using a 5 Fr. JR4. LV to AO pullback pressures were then recorded. Simultaneous pressures were then recorded. Right Coronary Artery selective angiography was then performed in multiple views using a 5 Fr. JR 4 catheter.The arterial sheath was pulled and a TR Band was applied for hemostasis 12 ml of air CORONARY ANGIOGRAPHY DOMINANCE: Left Dominant LEFT HEART ASSESSMENT LEFT MAIN: Mild luminal irregularities LEFT ANTERIOR DESCENDING ARTERY: Mild luminal irregularities CIRCUMFLEX ARTERY: Mild luminal irregularities RIGHT CORONARY ARTERY: Mild luminal irregularities VALVE FINDINGS: No Aortic Valve Stenosis COMPLICATIONS No Complications PROCEDURE MEDICATIONS Fentanyl 50 mcg IV Versed 1 mg IV Oxygen: 2 L/min via nasal cannula Aspirin (325mg) 1 Tabs PO @ 10/22/2023 13:10:11 Heparin given IA 10/22/2023 13:25:45 Verapamil 2.5mg, Ntg 100mcgs, 3000 units of Heparin given IA 10/22/2023 13:25:45 SUMMARY OF HEMODYNAMIC DATA Time AIR REST ECG 13:06:59 AO 89/58 (74) SA 13:29:19 LV 148/-7, 8 13:33:05 LV 146/-8, 10 13:33:18 LV 146/-7, 10 13:33:37 LVp 146/-7, 10 13:33:39 AOp 146/-10 (63) 13:33:44 LVp 141/-4, 8 13:34:10 AOp 137/73 (102) 13:34:17 Signed By Alejandra Escobar MD On 10/22/2023 15:05:19 Alejandra Escobar MD
--- NOTE | 2023-10-22 15:54 | DCINST_ITS ---
Discharge Instructions Diet Discharge Diet: No restrictions Activity Discharge Activity: Return to Normal Activity Weight Bearing Status: Full weight bearing Follow Up Care Test Results: Test results from this visit will be discussed in further detail at your follow- up appointment, if applicable. Discharge Plan Admission Admit Date/Time: 10/21/23 13:44 Primary Reason for Your Visit: chest pain Attending Provider: Chuy Franklin Primary Care Provider: Rodri Riddle Discharge Orders/Prescriptions Prescriptions: New aspirin 81 mg tablet,delayed release (DR/EC) 81 mg PO DAILY Qty: 1 0RF Continued coenzyme [id number]-bjutqik E [Co Q-10 (with Vit E)] 1 EACH capsule 1 ea PO DAILY calcium carbonate 500 MG tablet 650 mg PO BID Patient Comments: +D 500-400 cholecalciferol (vitamin D3) 25 MCG tablet 25 mcg PO DAILY amlodipine 5 mg tablet 5 mg PO DAILY Qty: 30 0RF rosuvastatin 20 mg tablet 10 mg PO QHS multivitamin [Daily Multi-Vitamin] Tablet 1 tab PO DAILY Referrals / Follow Up: Rodri Riddle MD [Primary Care Provider] - Within 1 Month Disposition Disposition (needs filled in before D/C Order can be placed): Home, Self Care
--- NOTE | 2023-10-22 15:58 | DS.PCM_ITS ---
Providers Date of Admission: 10/21/23 Date of Discharge: 10/22/23 Primary Care Physician: Dr. Rodri Riddle MD Reason For Visit: CHEST PAIN Diagnosis Discharge Diagnosis (1) Chest pain: Status: Acute Code(s): R07.9 - Chest pain, unspecified Qualifiers: Chest pain type: unspecified Qualified Code(s): R07.9 - Chest pain, unspecified (2) Abnormal stress test: Status: Acute Code(s): R94.39 - Abnormal result of other cardiovascular function study Plan 1. Chest pain-musculoskeletal in nature #2 essential hypertension-patient will remain on her present medications #3 hyperlipidemia-patient will remain on her statin #4 nonocclusive coronary artery disease Medications at Discharge Home Medications coenzyme A65-nfaucfq E 100 mg-5 unit capsule (Co Q-10 (with Vit E)) 1 ea PO DAILY supplement 12/03/15 calcium carbonate 500 mg calcium (1,250 mg) tablet 650 mg PO BID supplement 11/27/16 cholecalciferol (vitamin D3) 25 mcg (1,000 unit) tablet 25 mcg PO DAILY supplement 11/20/19 amlodipine 5 mg tablet 5 mg PO DAILY #30 tabs 07/17/22 multivitamin (Daily Multi-Vitamin tablet) 1 tab PO DAILY 10/21/23 rosuvastatin 20 mg tablet 10 mg PO QHS 10/21/23 aspirin 81 mg tablet,delayed release 81 mg PO DAILY #1 TAB 10/22/23 Hospital Course Operations None Procedures Cardiac catheterization and Stress test Summary of Care Provided Minutes Spent on Discharge: 30 Hospital Course: This 63-year-old white female was seen in the emergency room at [facility] with complaints of pain in her mid back area radiating into her chest and her left side of the neck. Workup in the emergency room included an EKG which showed no evidence of ischemic changes, patient's troponin was unremarkable. Chest x-ray did not show any acute process. Patient was placed in observation status on PCU, enzymes were cycled they remain normal. Patient underwent a stress test that was read out as abnormal in the apical area. Because of this patient underwent a cardiac catheterization which showed minimal coronary disease. On 10/22/2023, patient was seen and examined: On examination she appeared in good health and spirits, she does not appear to be in any distress. Vital signs as documented. Skin warm and dry and without overt rashes. Neck without JVD, thyroid appears normal, trachea is midline, neck is supple. Lungs clear, normal air movement was noted. Heart exam notable for regular rhythm, normal sounds and absence of murmurs, rubs or gallops. Abdomen unremarkable and without evidence of organomegaly, masses, or abdominal aortic enlargement, bowel sounds are present in all 4 quadrants, no abdominal tenderness was noted. Extremities nonedematous, no cyanosis was noted, no clubbing was noted. Neuro: Cranial nerves II through XII are grossly intact, no focal motor deficits were noted, sensation to light touch and pinprick is intact, motor exam 5/5 throughout. Psych: Patient is alert and oriented x3, she does not appear anxious or depressed, she does not appear agitated. Patient appears stable for discharge home on 10/22/2023. Weight / BMI Weight Weight: 75.2 kg Body Mass Index (BMI) 30.3 ABG / Lab / Microbiology Data 10/21/23 11:03 10/21/23 11:03 Laboratory: Laboratory Results - last 24 hr 10/21/23 16:37: Troponin I High Sens 8 D/C Instructions Discharge Diet: No restrictions Weight Bearing Status: Full weight bearing Meaningful Use Info Meaningful Use Diagnoses (Choose all that apply): None applicable Discharge Plan Admission Admit Date/Time: 10/21/23 13:44 Primary Reason for Your Visit: chest pain Attending Provider: Chuy Franklin Primary Care Provider: Rodri Riddle Discharge Orders/Prescriptions Prescriptions: New aspirin 81 mg tablet,delayed release (DR/EC) 81 mg PO DAILY Qty: 1 0RF Continued coenzyme [id number] E [Co Q-10 (with Vit E)] 1 EACH capsule 1 ea PO DAILY calcium carbonate 500 MG tablet 650 mg PO BID Patient Comments: +D 500-400 cholecalciferol (vitamin D3) 25 MCG tablet 25 mcg PO DAILY amlodipine 5 mg tablet 5 mg PO DAILY Qty: 30 0RF rosuvastatin 20 mg tablet 10 mg PO QHS multivitamin [Daily Multi-Vitamin] Tablet 1 tab PO DAILY Referrals / Follow Up: Rodri Riddle MD [Primary Care Provider] - Within 1 Month Disposition Disposition (needs filled in before D/C Order can be placed): Home, Self Care Charges/Coding Visit Charges Inpatient E&M: 01709 Disch Hosp
== END 2023-10-22 15:57 | disposition home or self-care (01) ==
LOC: ED 12:25 → PCU 13:54
PROVIDERS: Admitting Provider Internal Medicine; Emergency Provider Emergency Medicine; PCP Family Medicine; Visit Provider Internal Medicine
DX: I25.110 Atherosclerotic heart disease of native coronary artery with unstable angina pectoris (principal); R94.39 Abnormal result of other cardiovascular function study; I10 Essential (primary) hypertension; E78.5 Hyperlipidemia, unspecified; G47.30 Sleep apnea, unspecified; Z79.899 Other long term (current) drug therapy
CPT/HCPCS: 36415; 71045; 78452; 80048; 84484; 85025; 93005; 93017; 93454; 96360; 96361; 99152; 99153; 99221; 99285; A9500; J7030; J7040; Q9967; A4216; C1769; C1894; G0378

== ENCOUNTER → 2023-11-09 | Outpatient (CLI) | payer OTHER, SELFPAY ==
--- NOTE | 2023-11-09 07:24 | BI_ITS ---
MAMMOGRAPHY - BILATERAL SCREENING 3-D TOMOSYNTHESIS REASON FOR EXAM: Female, 63 years old. Z85.3 - Personal history of malignant neoplasm of breast PERTINENT HISTORY: No significant family history. TECHNIQUE: 2-D mammograms and 3-D Tomosynthesis of the breast (s) were performed. CAD was performed. COMPARISON: 11/04/2022 FINDINGS: The breast composition is heterogeneously dense that can obscure small breast masses. Scattered benign calcifications are seen. No dense spiculated masses or suspicious microcalcifications are identified. No architectural distortion is identified. There is no skin thickening or retraction. There has been no significant change since the prior study. Lumpectomy changes and scarring in the upper outer quadrant left breast. Bilateral benign vascular calcifications can be associated with coronary artery disease. BI/SCRN MAMM (CAD)W/ALISA BILAT IMPRESSION: No mammographic signs of malignancy. Routine yearly mammograms recommended. ASSESSMENT CATEGORY: BIRADS Category 2: Benign. A letter regarding these results will be sent to the patient by the facility within 30 days. FOLLOW UP RECOMMENDATION: Yearly follow up mammogram recommended. (A) Approximately 10% of breast cancers are not detected by mammography. A normal mammogram should not delay biopsy of a clinically suspicious abnormality. Electronically Signed: Miguel A John MD at 17:54 EST ,
--- OUTSIDE RECORDS SUMMARY | 2023-11-09 07:46 | XMS RPT_ITS | CCD ---
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 TOUSSAINT Primary Care UnavailRodri Kwong MD Primary Care Provider Rodri Mosqueda MD Primary Care Provider Rodri Mosqueda MD Primary Care Provider Kirk Jaimes Unavailable Orthopaedic, [place] Unavailable Rodri Mosqueda MD Primary Care Provider Kirk Jaimes MD Unavailable Orthopaedic, Eliud Unavailable RODRI MOSQUEDA Primary Care Unavailab le RODRI MOSQUEDA Primary Care Unavailab le RODRI MOSQUEDA Primary Care Unavailab RODRI Campbell Referring Unavailab RODRI Campbell Primary Care Unavailab le RODRI MOSQUEDA Referring Unavailab RODRI Campbell Primary Care Unavailab le RODRI MOSQUEDA Attending Unavailab RODRI Campbell Primary Care Unavailab le RODRI MOSQUEDA Attending Unavailab le RODRI MOSQUEDA Primary Care Unavailab le RODRI MOSQUEDA Referring Unavailab le RODRI MOSQUEDA Primary Care RODRI Pfeiffer Attending RODRI Pfeiffer Primary Care UnavailRODRI Kwong Attending RODRI Pfeiffer Primary Care Unavailab RODRI Campbell Attending RODRI Pfeiffer Primary Care Unavailab RODRI Campbell Referring RODRI Pfeiffer Primary Care Unavailab le Allergies Allergy Classification Reported Allergen(s) Allergy Type Date of Onset Reaction(s) Facility (20 sources) HYDROcodone; Translations: [HYDROCODONE] Drug Allergy 2 Vomiting [facility] (20 sources) Mold Extract; Translations: [MOLD] Drug Allergy 1 Unknown [facility] (20 sources) Seasonal allergy; Translations: [SEASONAL ALLERGIES] Allergy to substance 1 Other: See Comments, Unknown [facility] (20 sources) Mildew; Translations: [MILDEW] Allergy to substance 1 Unknown [facility] (14 sources) Acetaminophen / HYDROcodone; Translations: [HYDROCODONE-ACET AMINOPHEN] Drug Allergy 2 GI Upset [facility] (13 sources) Acetaminophen; Translations: [ACETAMINOPHEN] Drug Allergy 3 Unknown [facility] Medications Current Medications Medication Drug Class(es) Dates [...] Drug Class(es) Dates Sig (Normalized) Sig (Original) [id number] 200 actuat albuterol 0.09 mg/actuat metered dose [...] Date Documented Da te Episodic/Chronic Anxiety disorders (20 sources) Anxiety; Translations: [Anxiety disorder, unspecified] Onset: 06-28-2017 Chronic Cancer of breast (20 sources) Malignant neoplasm of female breast; Translations: [Malignant neoplasm of unspecified site of unspecified female breast] Onset: 04-10-2007 04-10-2007 Chronic Disorders of lipid metabolism (20 sources) Hypercholesterolem ia; Translations: [Pure hypercholesterolem ia, unspecified] Onset: 06-28-2017 07-23-2022 Chronic Essential hypertension (20 sources) Essential hypertension; Translations: [Essential (primary) hypertension] Onset: 07-23-2022 Chronic Mood disorders (20 sources) Depressive disorder; Translations: [Depression, unspecified depression type] Onset: 06-28-2017 Chronic Nutritional deficiencies (19 sources) Vitamin D deficiency; Translations: [Vitamin D deficiency, unspecified] Onset: 09-18-2020 07-23-2022 Chronic Other connective tissue disease (1 source) Myalgia, unspecified site; Translations: [Myalgias] Onset: 08-16-2023 Episodic Other gastrointestinal disorders (19 sources) Irritable bowel syndrome with diarrhea; Translations: [Irritable bowel syndrome with diarrhea] Onset: 11-04-2017 07-23-2022 Chronic Other lower respiratory disease (1 source) Cough; Translations: [Acute cough] Episodic Other non-traumatic joint disorders (20 sources) Polyarthropathy; Translations: [Polyarthritis, unspecified] Onset: 07-24-2020 [...] Documented Da te Episodic/Chronic Cancer of breast (19 sources) History of malignant neoplasm of breast; Translations: [Personal history of malignant neoplasm of breast] Onset: 2 07-23-2022 Episodic Gastrointestinal hemorrhage (20 sources) Gastrointestinal hemorrhage; Translations: [Gastrointestinal hemorrhage, unspecified] Onset: 7 05-02-2007 Episodic Genitourinary symptoms and ill-defined conditions (5 sources) Increased frequency of urination; Translations: [Frequency of micturition] Onset: 3 Episodic Headache; including migraine (19 sources) Headache; Translations: [Headache] Onset: 2 07-23-2022 Episodic Immunizations and screening for infectious disease (4 sources) Patient encounter status; Translations: [Encounter for immunization] Onset: 3 04-12-2023 Episodic Noninfectious gastroenteritis (19 sources) Chronic diarrhea; Translations: [Noninfective gastroenteritis and colitis, unspecified] Onset: 1 07-23-2022 Episodic Other bone disease and musculoskeletal deformities (19 sources) Osteopenia; Translations: [Other specified disorders of [...] 157.5 cm Rodri Mosqueda MD Work Phone: [facility] 10-13-2023 09:02-0500 Body temperature 97.59 [degF] Rodri Mosqueda MD Work Phone: [facility] 10-13-2023 09:02-0500 Body weight 76.2 kg Rodri Mosqueda MD Work Phone: [facility] 10-13-2023 09:02-0500 Diastolic blood pressure 84 mm[Hg] Rodri Mosqueda MD Work Phone: [facility] 10-13-2023 09:02-0500 Heart rate 78 /min Rodri Mosqueda MD Work Phone: [facility] 10-13-2023 09:02-0500 Respiratory rate 18 /min Rodri Mosqueda MD Work Phone: [facility] 10-13-2023 09:02-0500 SaO2% (BldA) [Mass fraction] 96 % Rodri Mosqueda MD Work Phone: [facility] 10-13-2023 09:02-0500 Systolic blood pressure 132 mm[Hg] Rodri Mosqueda MD Work Phone: [facility] 08-13-2023 11:47-0500 Body temperature 96.4 [degF] Soraida Athy PA-C Work Phone: [facility] 08-13-2023 11:47-0500 Body weight 77.11 kg Soraida Athy PA-C Work Phone: [facility] 08-13-2023 11:47-0500 Diastolic blood pressure 81 mm[Hg] Soraida Athy PA-C Work Phone: [facility] 08-13-2023 11:47-0500 Heart rate 85 /min Soraida Athy PA-C Work Phone: [facility] 08-13-2023 11:47-0500 Respiratory rate 20 /min Soraida Athy PA-C Work Phone: [facility] 08-13-2023 11:47-0500 SaO2% (BldA) [Mass fraction] 98 % Soraida Athy PA-C Work Phone: [facility] 12-08-2023 11:47-0500 Systolic blood pressure 125 mm[Hg] Soraida Dodson PA-C Work Phone: [facility] 11-04-2022 15:33-0500 Body height 157.5 cm Rodri Mosqueda MD Work Phone: [facility] 11-04-2022 15:33-0500 Body temperature 97.3 [degF] Rodri Mosqueda MD Work Phone: [facility] 11-04-2022 15:33-0500 Body weight 76.39 kg Rodri Mosqueda MD Work Phone: [facility] 11-04-2022 15:33-0500 Diastolic blood pressure 84 mm[Hg] Rodri Mosqueda MD Work Phone: [facility] 11-04-2022 15:33-0500 Heart rate 92 /min Rodri Mosqueda MD Work Phone: [facility] 11-04-2022 15:33-0500 Respiratory rate 18 /min Rodri Mosqueda MD Work Phone: [facility] 11-04-2022 15:33-0500 SaO2% (BldA) [Mass fraction] 95 % Rodri Mosqueda MD Work Phone: [facility] 11-04-2022 15:33-0500 Systolic blood pressure 124 mm[Hg] Rodri Mosqueda MD Work Phone: [facility] 10-25-2022 10:07-0500 Body temperature 97.7 [degF] Alex Cornell APRN.SENIOR PHYSICAL THERAPIST Work Phone: [facility] 10-25-2022 10:07-0500 Body weight 76.2 kg Alex Cornell APRN.SENIOR PHYSICAL THERAPIST Work Phone: [facility] 10-25-2022 10:07-0500 Diastolic blood pressure 82 mm[Hg] Alex Cornell APRN.SENIOR PHYSICAL THERAPIST Work Phone: [facility] 10-25-2022 10:07-0500 Heart rate 88 /min Alex Cornell APRN.SENIOR PHYSICAL THERAPIST Work Phone: [facility] 10-25-2022 10:07-0500 Respiratory rate 16 /min Alex Cornell FRONT DESK AGENT.SENIOR PHYSICAL THERAPIST Work Phone: [facility] 10-25-2022 10:07-0500 SaO2% (BldA) [Mass fraction] 98 % Alex Cornell FRONT DESK AGENT.SENIOR PHYSICAL THERAPIST Work Phone: [facility] 10-25-2022 10:07-0500 Systolic blood pressure 122 mm[Hg] Alex Cornell FRONT DESK AGENT.SENIOR PHYSICAL THERAPIST Work Phone: [facility] 10-07-2022 09:02-0500 Body height 157.5 cm Rodri Mosqueda MD Work Phone: [facility] 10-07-2022 09:02-0500 Body temperature 97.11 [degF] Rodri Mosqueda MD Work Phone: [facility] 10-07-2022 09:02-0500 Body weight 74.84 kg Rodri Mosqueda MD Work Phone: [facility] 10-07-2022 09:02-0500 Diastolic blood pressure 80 mm[Hg] Rodri Mosqueda MD Work Phone: [facility] 10-07-2022 09:02-0500 Heart rate 81 /min Rodri Mosqueda MD Work Phone: [facility] 10-07-2022 09:02-0500 Respiratory rate 14 /min Rodri Mosqueda MD Work Phone: [facility] 10-07-2022 09:02-0500 SaO2% (BldA) [Mass fraction] 98 % Rodri Mosqueda MD Work Phone: [facility] 10-07-2022 09:02-0500 Systolic blood pressure 120 mm[Hg] Rodri Mosqueda MD Work Phone: [facility] 08-28-2022 17:26-0500 Body temperature 97.81 [degF] Cj Fuller FRONT DESK AGENT.SENIOR PHYSICAL THERAPIST Work Phone: [facility] 08-28-2022 17:26-0500 Body weight 76.48 kg Cj Fuller FRONT DESK AGENT.SENIOR PHYSICAL THERAPIST Work Phone: [facility] 08-28-2022 17:26-0500 Diastolic blood pressure 74 mm[Hg] [facility]j [facility] FRONT DESK AGENT.SENIOR PHYSICAL THERAPIST Work Phone: [facility] 08-28-2022 17:26-0500 Heart rate 97 /min [facility] FRONT DESK AGENT.SENIOR PHYSICAL THERAPIST Work Phone: [facility] 08-28-2022 17:26-0500 Respiratory rate 16 /min [facility] FRONT DESK AGENT.SENIOR PHYSICAL THERAPIST Work Phone: [facility] 08-28-2022 17:26-0500 SaO2% (BldA) [Mass fraction] 97 % Cj Packkeyalisson FRONT DESK AGENT.SENIOR PHYSICAL THERAPIST Work Phone: [facility] 08-28-2022 17:26-0500 Systolic blood pressure 128 mm[Hg] [facility] FRONT DESK AGENT.SENIOR PHYSICAL THERAPIST Work Phone: [facility] 08-20-2022 08:13-0500 Body height 157.5 cm Payal Valadez FRONT DESK AGENT.SENIOR PHYSICAL THERAPIST Work Phone: [facility] 08-20-2022 08:13-0500 Body temperature 97.3 [degF] Payal Valadez FRONT DESK AGENT.SENIOR PHYSICAL THERAPIST Work Phone: [facility] 08-20-2022 08:13-0500 Body weight 76.66 kg Payal Valadez FRONT DESK AGENT.SENIOR PHYSICAL THERAPIST Work Phone: [facility] 08-20-2022 08:13-0500 Diastolic blood pressure 70 mm[Hg] Payal Valadez FRONT DESK AGENT.SENIOR PHYSICAL THERAPIST Work Phone: [facility] 08-20-2022 08:13-0500 Heart rate 90 /min Payal Valadez FRONT DESK AGENT.SENIOR PHYSICAL THERAPIST Work Phone: [facility] 08-20-2022 08:13-0500 Respiratory rate 14 /min Payal Valadez FRONT DESK AGENT.SENIOR PHYSICAL THERAPIST Work Phone: [facility] 08-20-2022 08:13-0500 SaO2% (BldA) [Mass fraction] 99 % Payal Valadez FRONT DESK AGENT.SENIOR PHYSICAL THERAPIST Work Phone: [facility] 08-20-2022 08:13-0500 Systolic blood pressure 112 mm[Hg] Payla Valadez FRONT DESK AGENT.SENIOR PHYSICAL THERAPIST Work Phone: [facility] 07-23-2022 08:39-0500 Body height 157.5 cm Payal Valadez APRN.SENIOR PHYSICAL THERAPIST Work Phone: [facility] 07-23-2022 08:39-0500 Body temperature 97.11 [degF] Payal Valadez FRONT DESK AGENT.SENIOR PHYSICAL THERAPIST Work Phone: [facility] 07-23-2022 08:39-0500 Body weight 76.84 kg Payal Valadez APRN.SENIOR PHYSICAL THERAPIST Work Phone: [facility] 07-23-2022 08:39-0500 Diastolic blood pressure 86 mm[Hg] Payal Valadez FRONT DESK AGENT.SENIOR PHYSICAL THERAPIST Work Phone: [facility] 07-23-2022 08:39-0500 Heart rate 96 /min Payal Valadez FRONT DESK AGENT.SENIOR PHYSICAL THERAPIST Work Phone: [facility] 07-23-2022 08:39-0500 Respiratory rate 14 /min Payal Valadez FRONT DESK AGENT.SENIOR PHYSICAL THERAPIST Work Phone: [facility] 07-23-2022 08:39-0500 SaO2% (BldA) [Mass fraction] 98 % Payal Valadez FRONT DESK AGENT.SENIOR PHYSICAL THERAPIST Work Phone: [facility] 07-23-2022 08:39-0500 Systolic blood pressure 134 mm[Hg] Payal Valadez APRN.SENIOR PHYSICAL THERAPIST Work Phone: [facility] 03-06-2022 11:11-0400 Body temperature 97.9 [degF] Natasha Bunn APRN.SENIOR PHYSICAL THERAPIST Work Phone: [facility] 03-06-2022 11:11-0400 Body weight 75.84 kg Natasha Bunn APRN.SENIOR PHYSICAL THERAPIST Work Phone: [facility] 03-06-2022 11:11-0400 Diastolic blood pressure 82 mm[Hg] Natasha Bunn APRN.SENIOR PHYSICAL THERAPIST Work Phone: [facility] 03-06-2022 11:11-0400 Heart rate 98 /min Natasha Bunn APRN.SENIOR PHYSICAL THERAPIST Work Phone: [facility] 03-06-2022 11:11-0400 Respiratory rate 18 /min Natasha Bunn APRN.SENIOR PHYSICAL THERAPIST Work Phone: [facility] 03-06-2022 11:11-0400 SaO2% (BldA) [Mass fraction] 97 % Natasha Bunn APRN.SENIOR PHYSICAL THERAPIST Work Phone: [facility] 03-06-2022 11:11-0400 Systolic blood pressure 142 mm[Hg] Natasha Bunn APRN.SENIOR PHYSICAL THERAPIST Work Phone: [facility] Encounters Encounter Date Encounter Type Care Provider Facility Start: 10-24-2023 Patient encounter procedure Ccf Provider [facility] Department Start: 10-22-2023 Patient encounter procedure [facility] Provider [facility] Start: 10-21-2023 Patient encounter procedure [facility] Provider [facility] Start: 10-21-2023 Telephone encounter Rodri Mosqueda MD Work Phone: [facility] [place] Procedures Date Procedure Procedure Detail Performing Clinician Start: 10-13-2023 Lipid 1995 panel - S chanel or Plasma Rodri Mosqueda MD Work Phone: Start: 08-13-2023 Urnls dip stick/tabl et rgnt auto w/o microscopy Trang Sharma FRONT DESK AGENT.SENIOR PHYSICAL THERAPIST Work Phone: Start: 04-29-2023 Lipid 1995 panel - S chanel or Plasma Soraida Dodson PA-C Work Phone: Start: 11-04-2022 Urnls dip stick/tabl et rgnt auto w/o microscopy Rodri Mosqueda MD Work Phone: Start: 11-04-2022 Mammography Rodri louis MD Work Phone: Start: 10-25-2022 Urnls dip stick/tabl et rgnt auto w/o microscopy Natasha Bunn APRN.SENIOR PHYSICAL THERAPIST Work Phone: Start: 08-28-2022 Culture bacterial qu anttative colony count urine Cj Fuller FRONT DESK AGENT.SENIOR PHYSICAL THERAPIST Work Phone: Start: 08-28-2022 Urnls dip stick/tabl et rgnt auto w/o microscopy Cj Fuller FRONT DESK AGENT.SENIOR PHYSICAL THERAPIST Work Phone: Start: 01-08-2020 Prosthetic unicompar tmental arthroplasty of left knee DR NEHA MOSQUERA MD Start: 12-24-2017 Colonoscopy Rodri louis MD Work Phone: Start: 09-06-[address] NEHA MOSQUERA MD Start: 05-02-2007 Colonoscopy Natasha Bunn APRN.SENIOR PHYSICAL THERAPIST Work Phone: Decompression of median nerve DR NEHA MOSQUERA MD Plan of Treatment Date Care Activity Detail Author Start: 04-12-2033 Urine microalbumin profile [facility] Start: 10-13-2028 Lipid panel Lipid Screening [facility] Start: 04-29-2028 Lipid 1996 panel - S chanel or Plasma Lipid Screening [facility] Start: 04-29-2028 Lipid panel Lipid Screening [facility] Start: 10-21-2027 LIPID SCREEN LIPID SCREEN [facility] Start: 03-05-2027 LIPID SCREEN LIPID SCREEN [facility] Start: 10-13-2026 Diabetes Screening Diabetes Screenin g [facility] Start: 04-29-2026 Diabetes Screening Diabetes Screenin g [facility] Start: 10-21-2025 DIABETES SCREEN DIABETES SCREEN [facility] Start: 03-05-2025 DIABETES SCREEN DIABETES SCREEN [facility] Start: 10-13-2024 Annual PCP Team New Car Inspector augustine Disease Visit Annual PCP Team Chronic Disease Visit [facility] Start: 04-12-2024 ANNUAL PCP TEAM HOSPITAL ADMISSIONS OFFICER AUGUSTINE DISEASE VISIT ANNUAL PCP TEAM CHRONIC DISEASE VISIT [facility] Start: 04-12-2024 BP CONTROLLED (<130/80) BP CON TROLLED (<130/80) [facility] Start: 03-03-2024 ANNUAL PCP TEAM HOSPITAL ADMISSIONS OFFICER AUGUSTINE DISEASE VISIT ANNUAL PCP TEAM CHRONIC DISEASE VISIT [facility] Start: 03-03-2024 BP CONTROLLED (<130/80) BP CON TROLLED (<130/80) [facility] Start: 11-05-2023 ANNUAL PCP TEAM HOSPITAL ADMISSIONS OFFICER AUGUSTINE DISEASE VISIT ANNUAL PCP TEAM CHRONIC DISEASE VISIT [facility] Start: 11-05-2023 Mammography [facility] Start: 11-05-2023 Screening for malign ant neoplasm of breast Mammogram Screening [facility] Start: 10-13-2023 End: 01-12-2024 Nuclear Ab [Presence] in Serum by Immunoassay [facility] Work Phone: Immunizations Immunization Date Immunization Notes Care Provider Matias magallanes 07-25-2023 influenza vaccine qs 60 mcg, Patients 6 months to 64 years, (FLULAVAL QUAD , PF,) 60 mcg (15 mcg x 4)/0.5 mL injection Rodri Mosqueda MD Work Phone: [facility] Payers Date Payer Category Payer Unknown [facility] CE [place] [employer] [id number] 2021-Present [phone] [address] [place] [address] PPO [id number] 2021 Unknown [id number] [address] [facility] CE [place] [employer] [id number] 2021-Present [phone] [address] [place] [address] PPO [id number] 1960 Unknown [id number] Social History Date Type Detail Facility Start: 01-04-2020 End: 10-07-2022 Tobacco smoking status NHIS Never smoked tobacco [facility] Start: 03-06-2022 End: 10-13-2023 Alcohol intake Current non-drinker of alcohol (finding) [facility] Start: 1960 Sex Assigned At Not on file [facility] Start: 02-23-2022 End: 07-23-2022 Exposure to SARS-CoV-2 (event) Not sure [facility] Start: 1960 Sex Assigned At Female [facility] Start: 03-06-2022 End: 10-07-2022 Tobacco use and exposure Smokeless tobacco non-user [facility] History of tobacco use Passive smoker [facility] Start: 10-07-2022 Education 13 [facility] Start: 03-03-2023 End: 04-12-2023 History of Social function [facility] Work Phone: Start: 03-03-2023 End: 04-12-2023 Tobacco use panel [facility] Work Phone: Adult Depression Screening Assessment 1 [facility] Work Phone: Start: 07-21-2022 Gender identity Identifies as female gender (finding) [facility] Start: 07-21-2022 Sexual orientation Heterosexual (finding) [facility] Do you belong to any clubs or organizations such as christian groups, unions, fraternal or athletic groups, or school groups? No [facility] Are you now , , , , never or living with a partner? [facility] How often to you hav e a drink containing alcohol? Never [facility] Do you feel stress - tense, restless, nervous, or anxious, or unable to sleep at night because your mind is troubled all the time - these days [OSQ] Very much [facility] (I/We) worried wheth er (my/our) food would run out before (I/we) got money to buy more. Never true [facility] Clinical Notes 03-06-2022 to 10-21-2023 Telephone Encounter - Ro Norris LPN - 10/21/2023 10:11 AM ESTTelephone Encounter - Lesa Grigsby MA - 10/14/2023 1:56 PM Rodri Torrez MD - 10/13/2023 10:04 AM EST Note Date & Type Note [facility] 10-21-2023 Miscellaneous Notes Ingrid Choe called today. : 1960 Allergies: Mildew, Mold, Seasonal Allergies, Acetaminophen, Hydrocodone, and Hydrocodone-Acetaminophen (home) [phone] (work) [phone] (cell) Reason for call: Ingrid called to report that last night she woke up at 2 am and had pain in between her shoulder blades. She thought it was just orthopedic/arthritis. She went to work at 4 am and as she was working she started to have chest pain. She sat down to rest and it eased up. Her job requires her to go outside at times so she is going back and forth inside and outside. After resting she resumed working and then the chest pain was only happening upon inhalation. Now she is home and the chest pain is gone but, she feels a heaviness in her chest area. I advised patient to go to ER immediately. I told her she needs to go to be checked for possible heart problems. I told her that someone needs to go with her if possible and she said her daughter can go with her. Ingrid is going to [facility] ER right now. Patient last appointment: 10/13/2023 The patients preferred pharmacy has been captured for this encounter? not asked Ro Norris LPN documented in this encounter [facility] 10-14-2023 Miscellaneous Notes Rheumatology referral faxed to Dr Benton [phone] Fax confirmation received. Patient given office contact info documented in this encounter [facility] 10-13-2023 Note HNO ID: [id number] Author: RODRI MOSQUEDA MD Service: ? Author Type: Physician Type: Progress Notes Filed: 10/13/2023 10:07 Note Text: This note was created using Sonoster. Subjective Ingrid Choe is a 63 year [...] for continued polyarthritis symptoms. Rodri Mosqueda MD [facility] 10-13-2023 Note HNO ID: [id number] Author: ROSIO ANDERSON LPN Service: ? Author [...] Anderson LPN October 13, 2023 9:04 AM [facility] 10-13-2023 History of Present illness Narrative This note was created using Genmab. Subjective Ingrid Choe is a 63 year [...] for continued polyarthritis symptoms. Rodri Mosqueda MD Patient is in office today for [...] 2023 9:04 AM documented in this encounter [facility] 08-16-2023 Note HNO ID: [id number] Author: Rodri Mosqueda MD Service: ? Author Type: Physician Type: Progress Notes Filed: 08/16/2023 8:44 AM Note Text: This note was created using Genmab. Subjective Ingrid Choe is a 63 year [...] symptoms. Follow-up as needed. Rodri Mosqueda MD [facility] 08-16-2023 Note HNO ID: [id number] Author: Kimberly Gonzalez LPN Service: ? Author [...] Gonzalez LPN August 16, 2023 8:11 AM [facility] 08-13-2023 Note HNO ID: [id number] Author: Soraida Dodson PA-C Service: ? Author Type: Physician Hand Upper And Bottom Lacer Type: Progress Notes Filed: 08/13/2023 1:12 PM Note Text: This note was created using Sonoster. Subjective Ingrid Choe is a 63 year [...] Outpatient Medications Medication Sig Dispense Refill Coenzyme T54-[place] E 100-5 mg-unit cap Take by mouth. [...] (POC) - URINE CULTURE Soraida Dodson PA-C [facility] 08-13-2023 History of Present illness Narrative This note was created using Sonoster. Subjective Ingrid Choe is a 63 year [...] Outpatient Medications Medication Sig Dispense Refill Coenzyme [id number] E 100-5 mg-unit cap Take by mouth. [...] Soraida Dodson PA-C documented in this encounter [facility] 04-12-2023 Note HNO ID: [id number] Author: Rodri Mosqueda MD Service: ? Author Type: Physician Type: Progress Notes Filed: 04/18/2023 9:21 PM Note Text: This note was created using NEST Fragrances[employer]. Subjective Ingrid Choe is a 63 year [...] life style, and diet. Rodri Mosqueda MD [facility] 04-12-2023 Note HNO ID: [id number] Author: Kimberly Gonzalez LPN Service: ? Author Type: LICENSED NURSE Type: Progress Notes Filed: 04/18/2023 9:21 PM Note Text: Patient in office today for an annual wellness exam. No refills needed today. Patient refused breast exam but agreed to skin exam. DUE HEALTH MAINTENANCE HEPATITIS C SCREENING refused HIV SCREENING refused HPV TESTING refused MAMMOGRAM [facility] spring completed COLORECTAL CANCER completed and [...] Gonzalez LPN April 12, 2023 10:54 AM [facility] 04-12-2023 History of Present illness Narrative This note was created using [employer]. Subjective Ingrid Choe is a 63 year [...] HIV SCREENING refused HPV TESTING refused MAMMOGRAM [facility] spring completed COLORECTAL CANCER completed and next due on 2024 PAP TESTING refused SHINGRIX VACCINE(1 of 2) Completed last year at COVID-19 VACCINE(4 - Metropia series) DTAP,TDAP,TD(2 - Td or Tdap done Kimberly Gonzalez LPN April 12, 2023 10:17 AM Tdap administered as ordered in L deltoid and without issues. Patient tolerated well, and denied pain or discomfort. Information sheet provided to patient on Tdap. Kimberly Gonzalez LPN April 12, 2023 10:54 AM documented in this encounter [facility] 03-03-2023 Note HNO ID: [id number] Author: Rodri Mosqueda MD Service: ? Author Type: Physician Type: Progress Notes Filed: 03/03/2023 8:50 AM Note Text: This note was created using Genm[employer]. Subjective Ingrid Choe is a 63 year [...] is cleared for surgery. Rodri Mosqueda MD [facility] 03-03-2023 Note HNO ID: [id number] Author: Kimberly Gonzalez LPN Service: ? Author Type: LICENSED NURSE Type: Progress Notes Filed: 03/03/2023 8:50 AM Note Text: Patient in office today for a pre-op exam. No refills needed today. Patient complains of increased anxiety and trouble sleeping. Patient stopped the trazodone because it was ineffective. Kimberly Gonzalez LPN March 03, 2023 8:08 AM [facility] 11-04-2022 Note HNO ID: [id number] Author: Rordi Mosqueda MD Service: ? Author Type: Physician Type: Progress Notes Filed: 11/05/2022 8:19 AM Note Text: This note was created using Genm[employer]. Subjective Ingrid Choe is a 62 year [...] increase her Crestor to 20 mg daily. [facility] 11-04-2022 Note HNO ID: [id number] Author: Rosio Anderson LPN Service: ? Author [...] Anderson LPN November 04, 2022 3:32 PM [facility] 11-04-2022 History of Present illness Narrative This note was created using NoteWriter. Subjective Ingrid Choe is a 62 year [...] 2022 3:32 PM documented in this encounter [facility] 10-26-2022 Miscellaneous Notes Pt notified of results and provider message. Vidya Rankin LPN Please notify that the urine culture showed no infection. May continue taking the antibiotic if symptoms are improving. If symptoms persist/worsen f/u with primary care. Hematuria noted on ua, patient should have urine retested with pcp in 2-4 weeks to see if persisting. documented in this encounter [facility] 10-25-2022 Note HNO ID: [id number] Author: Alex Cornell APRN.CNP Service: ? Author Type: Nurse Practitioner Type: Progress Notes Filed: 10/25/2022 10:27 AM Note Text: Subjective HPI HPI Ingrid Choe is a 62 year old female who presents today for CC of urinary urgency, frequency. This started few days ago/but has been intermittent since last uti in August with cephalexin. .Patient presents with: UTI: Frequency [...] 100 MG ORAL CAP Alex Cornell APRN.CNP [facility] 10-25-2022 Instructions Alex Cornell APRN.CNP - 10/25/2022 [...] front to back documented in this encounter [facility] 10-25-2022 History of Present illness Narrative Subjective HPI HPI Ingrid Choe is a 62 year old female who presents today for CC of urinary urgency, frequency. This started few days ago/but has been intermittent since last uti in August with cephalexin. .Patient presents with: UTI: Frequency [...] MACROCRYSTAL 100 MG ORAL CAP Alex Cornell APRN.SENIOR PHYSICAL THERAPIST documented in this encounter [facility] 10-07-2022 History of Present illness Narrative `This note was created using [employer]rancesriter. Subjective Ingrid Choe is a 62 year [...] mouth once daily. documented in this encounter [facility] 08-28-2022 Note HNO ID: [id number] Author: Cj Fuller APRN.SENIOR PHYSICAL THERAPIST Service: ? Author Type: Nurse Practitioner Type: Progress Notes Filed: 08/28/2022 5:41 PM Note Text: Subjective HPI A nontoxic appearing female presents to urgent care with chief complaint of possible UTI. Duration of symptoms 1 day. Associated symptoms dysuria, frequency, and urgency. Patient has history of UTIs in past with similar signs and symptoms. Patient denies the use of any hyfn-dhr-ccmuxof medications or home remedies for symptom management. [...] of care. This note was generated using [employer] software. It may (more content not included)... [facility] 08-28-2022 Instructions Cj Fuller APRN.[facility] - 08/28/2022 5:33 PM EST URINARY TRACT [...] or fluids down. documented in this encounter [facility] 08-28-2022 History of Present illness Narrative Subjective HPI A nontoxic appearing female presents to urgent care with chief complaint of possible UTI. Duration of symptoms 1 day. Associated symptoms dysuria, frequency, and urgency. Patient has history of UTIs in past with similar signs and symptoms. Patient denies the use of any gwqv-ctf-oauunnl medications or home remedies for symptom management. [...] of care. This note was generated using [employer] software. It may contain errors in wording, punctuation, or spelling. Cj Fuller APRN.MARIKA documented in this encounter [facility] 08-20-2022 History of Present illness Narrative This note was created using Genmab. Subjective Ingrid Choe is a 62 year [...] - Goal of BP <130/80 Payal Valadez APRN.SENIOR PHYSICAL THERAPIST documented in this encounter [facility] 07-23-2022 Instructions Payal Valadez APRN.MARIKA - 07/23/2022 [...] in 1 month. documented in this encounter [facility] 07-23-2022 History of Present illness Narrative This note was created using NE[employer]. Subjective Ingrid Choe is a 62 year old female. Patient presents to the office today for HTN. Patient had been monitoring her BP on a regular basis and it was averaging in the 160's/100. Patient went to the ER on 07/17/2022 at [facility] and was placed on Norvasc 5mg [...] Follow up in 1 month Payal Valadez APRN.SENIOR PHYSICAL THERAPIST documented in this encounter [facility] 06-17-2022 Note ORIGINAL EXAMINATION: MRI OF THE [...] Sign Date: 06/17/2022 12:33:41 PM Ordering Provider: [facility] 06-17-2022 Note ORIGINAL EXAMINATION: MRI OF [...] Sign Date: 06/17/2022 12:33:41 PM Ordering Provider: [facility] 03-06-2022 History of Present illness Narrative [...] Patient agreeable to treatment plan. Natasha Bunn APRN.CNP documented in this encounter [facility] Evaluation + Plan note No data available for this section [facility] Diagnosis Essential (primary) hypertension- Primary Unspecified essential hypertension Anxiety Anxiety state, unspecified Depression, unspecified depression type [facility] Diagnosis Anxiety- Primary Anxiety state, unspecified Depression, unspecified depression type Essential (primary) hypertension Unspecified essential hypertension [facility] Diagnosis Urinary frequency- Primary [facility] Diagnosis Hypertension, essential- Primary Unspecified essential hypertension Anxiety Anxiety state, unspecified Depression, unspecified depression type Pure hypercholesterolemia [facility] Diagnosis Increased urinary frequency- Primary Urinary frequency [facility] Diagnosis Urinary frequency- Primary Pure hypercholesterolemia [facility] Diagnosis Wellness examination- Primary Encounter for immunization Need for other specified prophylactic vaccination against single bacterial disease Lipid screening Screening for lipoid disorders Screening for deficiency anemia Screening for other and unspecified deficiency anemia Pure hypercholesterolemia Hypertension, essential Unspecified essential hypertension [facility] Diagnosis Burning with urination- Primary Dysuria documented in this encounter [facility] note* Diagnosis Hypertension, essential- Primary Unspecified essential hypertension Arthralgia of multiple joints Pain in joint, multiple sites Pure hypercholesterolemia Polyarthritis Unspecified polyarthropathy or polyarthritis, site unspecified documented in this encounter [facility] Discharge instructions No data available for this section [facility] Summary Purpose Family History No Family History Records FoundNo Family History Records FoundNo Family History Records FoundNo Family History Records Found Advance Directives No Advanced Directives Records FoundNo Advanced Directives Records FoundNo Advanced Directives Records FoundNo Advanced Directives Records Found Reason for Referral Specialty Diagnoses / Procedures Referred By Contjamie t Referred To Contact Rheumatology Diagnoses Arthralgia of multiple joints Procedures CONSULT TO RHEUM/IMMUN DISEASE OFFICE/OUTPATIENT [facility] 60 MINUTES Rodri Mosqueda MD [address] [place] [address] Referral ID Status Reason Start Date Expiration Date Visits Requested Visits Authorized [id number] Pending Review PCP Requested Referral 10/13/2023 10/12/2024 1 1 Additional Source Comments INFORMATION SOURCE (unrecogn ized section and content) DATE CREATED AUTHOR AUTHOR'S ORGANIZ ATION 06/18/2022 [facility] [place] DATE CREATED AUTHOR AUTHOR'S ORGANIZ ATION 08/18/2023 [facility] DATE CREATED AUTHOR AUTHOR'S ORGANIZ ATION 10/23/2023 [facility] nter Source Comments (unrecognize d section and content) In the event this informatio n is protected by the Federal Confidentiality of Alcohol and Drug Abuse Patient Records regulations: The Federal rules restrict any use of the information to criminally investigate or prosecute any alcohol or drug abuse patient.[facility] the event this information is protected by the Federal Confidentiality of Alcohol and Drug Abuse Patient Records regulations: The Federal rules restrict any use of the information to criminally investigate or prosecute any alcohol or drug abuse patient.[facility] the event this information is protected by the Federal Confidentiality of Alcohol and Drug Abuse Patient Records regulations: The Federal rules restrict any use of the information to criminally investigate or prosecute any alcohol or drug abuse patient.[facility] the event this information is protected by the Federal Confidentiality of Alcohol and Drug Abuse Patient Records regulations: The Federal rules restrict any use of the information to criminally investigate or prosecute any alcohol or drug abuse patient.[facility] the event this information is protected by the Federal Confidentiality of Alcohol and Drug Abuse Patient Records regulations: The Federal rules restrict any use of the information to criminally investigate or prosecute any alcohol or drug abuse patient.[facility] the event this information is protected by the Federal Confidentiality of Alcohol and Drug Abuse Patient Records regulations: The Federal rules restrict any use of the information to criminally investigate or prosecute any alcohol or drug abuse patient.[facility] the event this information is protected by the Federal Confidentiality of Alcohol and Drug Abuse Patient Records regulations: The Federal rules restrict any use of the information to criminally investigate or prosecute any alcohol or drug abuse patient.[facility] the event this information is protected by the Federal Confidentiality of Alcohol and Drug Abuse Patient Records regulations: The Federal rules restrict any use of the information to criminally investigate or prosecute any alcohol or drug abuse patient.[facility] the event this information is protected by the Federal Confidentiality of Alcohol and Drug Abuse Patient Records regulations: The Federal rules restrict any use of the information to criminally investigate or prosecute any alcohol or drug abuse patient.[facility] the event this information is protected by the Federal Confidentiality of Alcohol and Drug Abuse Patient Records regulations: The Federal rules restrict any use of the information to criminally investigate or prosecute any alcohol or drug abuse patient.[facility] the event this information is protected by the Federal Confidentiality of Alcohol and Drug Abuse Patient Records regulations: The Federal rules restrict any use of the information to criminally investigate or prosecute any alcohol or drug abuse patient.[facility] the event this information is protected by the Federal Confidentiality of Alcohol and Drug Abuse Patient Records regulations: The Federal rules restrict any use of the information to criminally investigate or prosecute any alcohol or drug abuse patient.[facility] the event this information is protected by the Federal Confidentiality of Alcohol and Drug Abuse Patient Records regulations: The Federal rules restrict any use of the information to criminally investigate or prosecute any alcohol or drug abuse patient.[facility] the event this information is protected by the Federal Confidentiality of Alcohol and Drug Abuse Patient Records regulations: The Federal rules restrict any use of the information to criminally investigate or prosecute any alcohol or drug abuse patient.[facility] the event this information is protected by the Federal Confidentiality of Alcohol and Drug Abuse Patient Records regulations: The Federal rules restrict any use of the information to criminally investigate or prosecute any alcohol or drug abuse patient.[facility] the event this information is protected by the Federal Confidentiality of Alcohol and Drug Abuse Patient Records regulations: The Federal rules restrict any use of the information to criminally investigate or prosecute any alcohol or drug abuse patient.[facility] the event this information is protected by the Federal Confidentiality of Alcohol and Drug Abuse Patient Records regulations: The Federal rules restrict any use of the information to criminally investigate or prosecute any alcohol or drug abuse patient.[facility] the event this information is protected by the Federal Confidentiality of Alcohol and Drug Abuse Patient Records regulations: The Federal rules restrict any use of the information to criminally investigate or prosecute any alcohol or drug abuse patient.[facility] the event this information is protected by the Federal Confidentiality of Alcohol and Drug Abuse Patient Records regulations: The Federal rules restrict any use of the information to criminally investigate or prosecute any alcohol or drug abuse patient.[facility] the event this information is protected by the Federal Confidentiality of Alcohol and Drug Abuse Patient Records regulations: The Federal rules restrict any use of the information to criminally investigate or prosecute any alcohol or drug abuse patient.[facility] Reason for Visit (unrecogniz ed section and [...] Comments Rheumatology referral faxed to Dr Benton Reason Comments Patient Update Patient sent to ER Care Teams (unrecognized sec tion and content) Tool Profiling Machine Set Up Operator Relationship Specialty Start Date End Date Rodri Mosqueda MD PCP - General 04/08/07 Tool Profiling Machine Set Up Operator Relationship Specialty Start Date End Date Rodri Mosqueda MD PCP - General 04/08/07 Tool Profiling Machine Set Up Operator Relationship Specialty Start Date End Date Rodri Mosqueda MD PCP - General 04/08/07 Tool Profiling Machine Set Up Operator Relationship Specialty Start Date End Date Rodri Mosqueda MD PCP - General 04/08/07 Tool Profiling Machine Set Up Operator Relationship Specialty Start Date End Date Rodri Mosqueda MD PCP - General 04/08/07 Tool Profiling Machine Set Up Operator Relationship Specialty Start Date End Date Rodri Mosqueda MD PCP - General 04/08/07 Tool Profiling Machine Set Up Operator Relationship Specialty Start Date End Date Rodri Mosqueda MD PCP - General 04/08/07 Tool Profiling Machine Set Up Operator Relationship Specialty Start Date End Date Rodri Mosqueda MD PCP - General 04/08/07 Tool Profiling Machine Set Up Operator Relationship Specialty Start Date End Date Rodri Mosqueda MD [address] [place] [place] [address] PCP - General Family Medicine 04/08/07 Kirk Jaimes [address] [place] [address] Gastroenterology 12/06/17 [facility] [place] [address] [place] [address] Orthopedics 09/06/21 Tool Profiling Machine Set Up Operator Relationship Specialty Start Date End Date Rodri Mosqueda MD [address] [place] [place] [address] PCP - General Family Medicine 04/08/07 Kirk Jaimes MD [address] [place] [address] Gastroenterology 12/06/17 [facility] [place] [address] [place] [phone] Orthopedics 09/06/21 Tool Profiling Machine Set Up Operator Relationship Specialty Start Date End Date Rodri Mosqueda MD [address] [place] [place] [address] PCP - General Family Medicine 04/08/07 Kirk Jaimes MD [address] [place] [address] Gastroenterology 12/06/17 [facility] [place] [address] [place] [phone] Orthopedics 09/06/21 Tool Profiling Machine Set Up Operator Relationship Specialty Start Date End Date Rodri Mosqueda MD [address] [place] [address] PCP - General Family Medicine 04/08/07 Kirk Jaimes MD [address] [place], [place] [address] Gastroenterology 12/06/17 [facility] [place] [address] [place] [phone] Orthopedics 09/06/21 Tool Profiling Machine Set Up Operator Relationship Specialty Start Date End Date Rodri Mosqueda MD [address] [place] [address] PCP - General Family Medicine 04/08/07 Kirk Jaimes MD [address] [place] [address] Gastroenterology 12/06/17 [facility] [place] [address] [place] [phone] Orthopedics 09/06/21 Care Team (unrecognized sect ion and content) Care Team Personnel Name: RODRI MOSQUEDA MD Member Role: Primary Care Physician Address: Address: [facility] [place] [address]- [place] Care Team Related Persons Name: ANIL [...] BE BASED ON THE PRIMARY CLINICAL RECORDS. [facility] [employer] [facility]. provides no warranty or guarantee of the accuracy or completeness of information in this document.
== END | disposition home or self-care (01) ==
LOC: OPBI 07:24
PROVIDERS: PCP Family Medicine; Referring Provider Internal Medicine Medical Oncology; Visit Provider Internal Medicine Medical Oncology
DX: Z12.31 Encounter for screening mammogram for malignant neoplasm of breast (principal)
CPT/HCPCS: 77063; 77067

== ENCOUNTER → 2024-09-29 | Outpatient (CLI) | payer MEDICARE, SELFPAY ==
--- NOTE | 2024-09-29 14:33 | BI_ITS ---
MAMMOGRAPHY - BILATERAL DIAGNOSTIC REASON FOR EXAM: Female, 64 years old. Left breast pain. PERTINENT HISTORY: Personal history of breast cancer. History of prior left lumpectomy with radiation and chemotherapy. TECHNIQUE: Digital bilateral breast winifred (3D mammographic acquisition) in the CC and MLO projections. 2-D mediolateral oblique (MLO) and craniocaudad (CC) views of both breasts were obtained. CAD: Full Field Digital Mammography with Computer Added Detection was performed. COMPARISON: Comparison is made with prior study November 09, 2023 and November 04, 2022. FINDINGS: Breast Composition: The breasts are heterogeneously dense, which may obscure small masses. There are no dominant masses or suspicious calcifications. Once again, the patient is status post lumpectomy in the deep upper outer aspect of the left breast. Stable decreased size of the left breast. Stable dystrophic calcification at the operative site. Stable fat-containing right axillary lymph nodes. No other significant abnormalities are identified. There has been no significant change since the prior study. BI/DIAG MAMM W/CAD, BILAT IMPRESSION: Stable bilateral diagnostic mammogram. One year follow-up recommended. (A) ASSESSMENT CATEGORY: BIRADS Category 2: Benign. A letter regarding these results will be sent to the patient by the facility within 30 days. Approximately 10% of breast cancers are not detected by mammography. A normal mammogram should not delay biopsy of a clinically suspicious abnormality. Electronically Signed: Shoaib Kuhn MD at 8:51 EST ,
--- NOTE | 2024-09-29 14:33 | US_ITS ---
STUDY: ULTRASOUND BREAST - LEFT REASON FOR EXAM: Female, 64 years old. Left retroareolar pain. TECHNIQUE: Axial and longitudinal images of the LEFT breast were performed with a high resolution ultrasound transducer. # OF IMAGES: 21 COMPARISON: Comparison is made with prior mammogram done earlier today. FINDINGS: LEFT Breast: The retroareolar region of the left breast was examined with ultrasound. No sonographic abnormality is seen. US/Breast Limited Unilateral IMPRESSION: No sonographic abnormality is seen. ASSESSMENT CATEGORY: BIRADS Category 1: Negative. A letter regarding these results will be sent to the patient by the facility within 30 days. Electronically Signed: Shoaib Kuhn MD at 10:13 EST ,
== END | disposition home or self-care (01) ==
PROVIDERS: PCP Family Medicine; Referring Provider Nurse Practitioner Family; Visit Provider Nurse Practitioner Family
DX: N64.4 Mastodynia (principal); Z85.3 Personal history of malignant neoplasm of breast
CPT/HCPCS: 76642; 77062; 77066; G0279